=== PATIENT | female | born 1955 | race Caucasian/White ===

== ENCOUNTER 2019-07-12 16:25 | Observation (INO) | payer MEDICARE, SELFPAY ==
[2019-07-12] VITALS (13 sets, daily range): BP systolic 114–142; BP diastolic 68–98; PULSE 84–142; RESP 16–22; TEMP 36.4–37.1; O2SAT 92–96; BMI 46.1
--- NOTE | ~2019-07-12 | XR_ITS ---
EXAMINATION: XR chest 2V DATE: 07/12/2019 17:26 INDICATION: Heart palpitations. TECHNIQUE: Frontal and lateral views of the chest were obtained. COMPARISON: Chest 2 views 08/20/2018 FINDINGS: The chest demonstrates clear lungs without pneumonia, pleural effusion, or pneumothorax. Th e heart size is normal. There is a chronic compression fracture at thoracolumbar junction. There are bilateral shoulder arthroplasties. IMPRESSION: 1. No acute cardiopulmonary disease. Reviewed, dictated and finalized at location A. INE KEY CUSTOMER LEADER
--- NOTE | 2019-07-12 16:30 | ECG_ITS ---
Measurements Intervals [facility] [place] Rate: 139 P: 95 NM: 176 QRS: 73 QRSD: 80 T: 45 QT: 345 QTc: 526 Interpretive Statements ATRIAL FLUTTER/TACHYCARDIA WITH RAPID VENTRICULAR RESPONSE ST-T WAVE ABNORMALITY IN INF/LAT LEADS- CONSIDER ISCHEMIA ABNORMAL ECG Electronically Signed On 07-12-2019 17:56:23 DINKEY OPERATOR by Des Vance D.O.
[2019-07-12 16:54] LABS: Basophils Percent Auto 0.2 % (0.2-1.2); Eosinophils Absolute Auto 0.1 K/mm3 (0-0.3); Eosinophils Percent Auto 0.8 % (0-4.4); Hematocrit 49.1 % (37.0-47.0); Hemoglobin 15.6 g/dL (12.0-15.0); Immature Granulocyte Absolute 0.04 K/mm3 (0.00-0.031); Immature Granulocyte Percent A 0.4 % (0-0.5); Lymphocytes Absolute Auto 0.21 K/mm3 (0.9-3.2); Lymphocytes Percent Auto 2.2 % (18.3-44.2); Mean Corpuscular HGB Conc 31.8 g/dl (32-36); Mean Corpuscular Hemoglobin 27.7 pg (26-34); Mean Corpuscular Volume 87.2 fl (80-100); Mean Platelet Volume 9.1 fl (7.4-10.4); Monocytes Absolute Auto 0.3 K/mm3 (0.1-0.6); Monocytes Percent Auto 3.1 % (2.6-8.5); Neutrophils Percent Auto 93.3 % (45.5-73.1); Platelet Count Result 326 k/mm3 (150-375); Red Blood Count 5.63 M/mm3 (4.2-5.4); White Blood Count 9.6 K/mm3 (4.5-10.0)
--- NOTE | 2019-07-12 16:58 | PC.NURSE ---
PT TAKEN TO [facility] AND ATTATCHED TO MACHINE SAND MIXER PER BEN BOSS RN CAT INFORMED.
[2019-07-12 17:04] LABS: INR 2.2; Prothrombin Time 24.3 Seconds (11.1-14.7)
[2019-07-12 17:05] LABS: Partial Thromboplastin Time 43.3 SECONDS (22.3-36.8)
[2019-07-12 17:07] LABS: Blood Urea Nitrogen 17 mg/dL (7-17); Calcium 9.1 mg/dL (8.4-10.2); Carbon Dioxide 26 mmol/L (22-30); Chloride 99 mmol/L (98-107); Estimated CRCL calculation 99 ml/min; Estimated Glomerular Filt Rate > 60; Glucose 134 mg/dL (65-105); Potassium 3.3 mmol/L (3.4-5.0); Sodium 138 mmol/L (137-145)
--- NOTE | 2019-07-12 17:07 | ED.ARRPALP ---
HPI - Arrhythmia/Palpitations General Chief Complaint: Arrhythmia/Palpitations Stated Complaint: v/d, my afib is acting up Time Seen by Provider: 07/12/19 17:05 Source: patient and RN notes reviewed Mode of arrival: other Limitations: no limitations History of Present Illness HPI narrative: Pt is a 64 y/o female who presents to the ED with c/o constant palpitations that began after vomiting at 11:30 AM today. Pt believes she has a stomach virus. Pt has a hx of A-fib. Pt states that she has not been able to take her medications d/t emesis. She notes that she was in a hospital with her daughter who was dx with kidney stones. Pt reports nausea and diarrhea, but denies a fever. Pt is taking Coumadin. Pt's services host is Dr. Avilez. complaint: palpitations Onset (ago): hour(s) Time: 11:30 Duration: constant Context: other (occurred after emesis) Arrhythmia history: atrial fibrillation Associated symptoms: nausea, vomiting and other (diarrhea) Related Data Home Medications Medication Instructions Recorded Confirmed warfarin 4 mg tablet 8 mg PO QMWF tablet 04/22/19 07/12/19 warfarin 4 mg tablet 8 mg PO QTUTHSA 04/22/19 07/12/19 simvastatin 20 mg tablet 20 mg PO HS 05/24/19 07/12/19 triamterene 37.5 1 tablet PO QAM 05/24/19 07/12/19 mg-hydrochlorothiazide 25 mg tablet warfarin 0.5 mg PO QMWF 07/12/19 07/12/19 sotalol 160 mg PO BID 07/13/19 07/13/19 Allergies Allergy/AdvReac Type Severity Reaction Status Date / Time No Known Allergies Allergy Verified 07/12/19 17:15 Review of Systems Review of Systems: All systems reviewed & are unremarkable except as noted in HPI and below Constitutional: Constitutional: Denies fever(s) Cardiovascular: Cardiovascular: Reports other (palpitations) Gastrointestinal: Gastrointestinal: Reports diarrhea, Reports nausea and Reports vomiting PMFSH Past Medical History Medical History (Updated 07/12/19 @ 20:22 by Jose Hilliard MD) A-fib Anxiety Arthritis Cataracts, bilateral CPAP (continuous positive airway pressure) dependence Depression Essential hypertension Foot drop GI bleed History of cardioversion Hx of colonic polyps Mixed hyperlipidemia Normal colonoscopy (~2009) On warfarin therapy WILMA (obstructive sleep apnea) Rectal polyp Sleep apnea Surgical History Surgical History (Updated 07/12/19 @ 17:20 by Fernanda Lr) H/O shoulder replacement (~2011) Bilateral 2011 and 2013 History of hip replacement, total (~2013) Left 2014 Right 2017 History of hysterectomy History of knee replacement (~2015) right: 2016 Hx of cataract removal with insertion of prosthetic lens Hx of section x2 Status post JANE-BSO (~2003) Social History Social History (Updated 05/25/19 @ 12:23 by Perla Espinoza MA) Smoking status: Never smoker Second hand tobacco smoke exposure: No Alcohol intake: never Substance use: never Substance use type: does not use Gender identity (if verbalized by the patient): Female Spiritual care concerns: No Agree to blood products: Yes Exam Const: General: healthy appearing, no acute distress and alert Orientation/consciousness: patient oriented x3 HENMT: Head: normal to inspection Eyes: Conjunctivae: conjunctivae normal Pupils: Equal, round and reactive pupils present Neck: Neck: normal visual inspection and no lymphadenopathy Chest: Chest palpation & inspection: normal inspection of the chest Resp: Effort & Inspection: normal respiratory effort Auscultation: clear to auscultation bilaterally Cardio: Rate: tachycardic : General: Yes no CVA tenderness Skin: General skin exam: normal color Neuro: General: patient oriented x3, moves all extremities and no meningeal signs Extrem: General: normal to inspection Course Consultations Consultation #1: Discussed case with Dr. Hahn (Cardiology). Accepts consult. Date: 07/12/19 Time: 18:59 Consultation #2: Discussed case with Malka Marte
[2019-07-12 17:19] LABS: Troponin I < 0.012 ng/mL (0.000-0.034)
[2019-07-12] MEDS: METOPROLOL TARTRATE INJ 5 MG/5 ML VIAL IV PUSH (18:55)
[2019-07-12] MEDS: SODIUM CHLORIDE 0.9% IV 1,000 ML 999 ML IV CONT (18:55)
--- NOTE | 2019-07-12 19:30 | PC.NURSE ---
PATRICIA HANEY CANCELLED PER EDP ORDER
[2019-07-12 20:04] LABS: Troponin I 0.029 ng/mL (0.000-0.034)
[2019-07-12] MEDS: SOTALOL HCL 80 MG TABLET 160 MG PO (20:39)
[2019-07-12] MEDS: ONDANSETRON INJ 4 MG/2 ML VIAL IV PUSH (21:05)
--- NOTE | 2019-07-12 21:07 | PC.NURSE ---
called lab to add on MG
[2019-07-12 21:16] LABS: Magnesium 1.6 mg/dL (1.6-2.3)
[2019-07-12] MEDS: SODIUM CHLORIDE 0.9% IV 1,000 ML 125 ML IV CONT (21:59)
[2019-07-12 22:10] LABS: Glucose Point of Care 114 (65-105)
--- NOTE | 2019-07-12 22:26 | PC.NURSE ---
This patient, Ava Lagunas, was admitted to IMU Room 210-01. Patient/family oriented to hospital policies and general routines including ID bracelet, bed and alarms, visiting hours, pain management, procedures, bathroom and other care routines, personal items, smoking policy, room service/diet, and visiting hours. Valuables list has been completed. Information on how to activate the Rapid Response Team has been discussed. Patient/Family are encouraged to report perceived risks to care and to ask questions if they do not understand what they are told or what they should do.
[2019-07-13] VITALS (11 sets, daily range): BP systolic 135–149; BP diastolic 69–92; PULSE 67–90; RESP 16–20; TEMP 36–36.6; O2SAT 91–96
[2019-07-13 03:28] LABS: Blood Urea Nitrogen 16 mg/dL (7-17); Calcium 7.6 mg/dL (8.4-10.2); Carbon Dioxide 24 mmol/L (22-30); Chloride 105 mmol/L (98-107); Estimated CRCL calculation 112 ml/min; Estimated Glomerular Filt Rate > 60; Glucose 124 mg/dL (65-105); Potassium 3.6 mmol/L (3.4-5.0); Sodium 138 mmol/L (137-145)
[2019-07-13 03:43] LABS: Troponin I 0.159 ng/mL (0.000-0.034)
[2019-07-13 05:46] LABS: Glucose Point of Care 92 (65-105)
[2019-07-13] MEDS: SODIUM CHLORIDE 0.9% IV 1,000 ML 125 ML IV CONT (06:14)
[2019-07-13] MEDS: POTASSIUM CHLORIDE 10 MEQ TABLET.ER PO (08:26)
[2019-07-13] MEDS: lisinopriL 20 MG TABLET 40 MG PO (08:26)
[2019-07-13] MEDS: AMLODIPINE BESYLATE 5 MG TABLET PO (08:26)
[2019-07-13] MEDS: ACETAMINOPHEN 325 MG TABLET 650 MG PO (08:26)
[2019-07-13] MEDS: SOTALOL HCL 80 MG TABLET 160 MG PO (10:17)
--- NOTE | 2019-07-14 07:04 | HP_ITS ---
DATE OF SERVICE: COMBINED HISTORY AND PHYSICAL AND DISCHARGE SUMMARY CHIEF COMPLAINT: Palpitations, arrhythmia. HISTORY OF PRESENT ILLNESS: A 64-year-old female, came in because of palpitations. The patient has a known history of atrial fibrillation, has had an ablation done previously by . The patient also sees Dr. Avilez, Cardiology here in [facility]. The patient was having a stomach virus yesterday, was vomiting throughout the day and having diarrhea and thinks that set off her atrial fibrillation. The patient states she was having vomiting and diarrhea yesteday. Denies any vomiting or diarrhea. The patient is tolerating a diet. Wants to go home, Telemetry is showing sinus rythym. PAST MEDICAL HISTORY: Atrial fibrillation, anxiety, arthritis, CPAP, depression, footdrop, GI bleed, cardioversion, colonic polyps, hyperlipidemia, Coumadin therapy, obstructive sleep apnea, rectal polyp, and sleep apnea. SURGICAL HISTORY: Bilateral shoulder repair, history of hip replacements, hysterectomy, knee replacements, cataracts, section, and also bilateral salpingo-oophorectomy. SOCIAL HISTORY: Patient denies smoking. PHYSICAL EXAMINATION: VITAL SIGNS: Temperature is 36, pulse 67, respirations 16, blood pressure 147/92. GENERAL: The patient is a pleasant lady, appears to be in no acute distress. HEENT: Head, normal. Conjunctivae, normal. NECK: No lymphadenopathy. CHEST: Clear to auscultation. HEART: Sounds are normal. Pt is in sinus. ABDOMEN: Soft, nontender. BS present MUSCULOSKELETAL: She is able to move all 4 limbs. NEURO: No focal deficits PSYCH: Good mood and effect EXT: No edema SKIN; Warm and dry LABORATORY DATA: Hemoglobin and hematocrit 15.6 and 49.1, white cell 9.6, platelets 326. Sodium 138, potassium 3.3, creatinine 0.7, glucose 134. The patient had a chest x-ray was normal. EKG showed tachycardia on admission. ASSESSMENT AND PLAN: The patient admitted for gastroenteritis and atrial fibrillation, uncontrolled. HOSPITAL COURSE: Patient was admitted to the hospital in IMU. Patient was started on IV fluids, continued on her home medication. The patient changed back to sinus rhythm of 72. Patient states she feels better. Denies any nausea or diarrhea presently. The patient also had IV Zofran in the emergency room and had some potassium rider. The patient feels well. DISCHARGE DIAGNOSES: 1. Gastroenteritis. 2. Atrial fibrillation, uncontrolled, possibly triggered by stomach virus. CONDITION ON DISCHARGE: Stable FOLLOWUP: Dr. Avilez and for her 2nd ablation. MEDICATIONS ON DISCHARGE: Imodium 2 mg p.o. q.4 p.r.n., Zofran 4 mg p.o. q.12 p.r.n., Norvasc 5 mg p.o. daily, lisinopril 40 p.o. b.i.d., potassium chloride 10 mEq p.o. daily, simvastatin 20 p.o. q.h.s., sotalol 160 p.o. b.i.d., terazosin 1 mg p.o. q.h.s., HCTZ/triamterene 1 tablet p.o. q.a.m., Coumadin 8 mg on Friday, Friday, and Friday, 8 mg and Friday. Coumadin 0.5 p.o. Friday, Friday, and Friday. FOLLOW UP:The patient also to have follow up with her primary care. DIET: The patient to have a heart healthy diet. ACTIVITY: As tolerated. DISPOSITION: Home. Total time taken for combined history, physical, and discharge summary is 38 minutes. D I MT: Piero MCCRACKEN
[2019-07-14 14:12] LABS: Glucose Point of Care 90 (65-105)
== END 2019-07-13 17:30 | disposition home or self-care (01) ==
LOC: ANHED 07-13 11:59 → ANHIMU 07-13 12:00 → ANH3MEDSUR 07-15 09:24 → ANHIMU 07-15 09:24
PROVIDERS: Internal Medicine; Admitting Provider Internal Medicine; Emergency Provider Family Medicine; PCP Family Medicine; Visit Provider Family Medicine
DX: I48.91 Unspecified atrial fibrillation (principal); K52.9 Noninfective gastroenteritis and colitis, unspecified; I10 Essential (primary) hypertension; E78.2 Mixed hyperlipidemia; Z79.01 Long term (current) use of anticoagulants; Z79.899 Other long term (current) drug therapy; Z96.611 Presence of right artificial shoulder joint; Z96.612 Presence of left artificial shoulder joint; Z96.642 Presence of left artificial hip joint; Z96.651 Presence of right artificial knee joint; Z98.890 Other specified postprocedural states; Z99.89 Dependence on other enabling machines and devices
CPT/HCPCS: 36415; 71046; 80048; 83735; 84484; 85025; 85610; 85730; 93005; 96361; 96374; 96375; 99285; A9270; G0378; J2405; J3480; J7030

== ENCOUNTER 2019-12-29 13:52 | Outpatient (CLI) | payer MEDICARE, SELFPAY ==
--- NOTE | ~2019-12-29 | MM_ITS ---
EXAMINATION: MM screening [place] [place] HISTORY: Screening mammogram, family history of breast cancer in her mother and sister. TECHNIQUE: Craniocaudal and mediolateral oblique 3-D tomosynthesis images were obtained and synthetic 2-D images were generated. CAD analysis was submitted and interpreted. COMPARISON: 08/27/2018, 08/05/2017, 07/26/2016 BREAST PARENCHYMAL COMPOSITION: There are scattered areas of fibroglandular density. FINDINGS: There is no evidence of suspicious mass, calcification, or architectural distortion to sugg est malignancy in either breast. There has been no suspicious interval change. IMPRESSION: 1. No mammographic evidence of malignancy. 2. Recommend routine screening mammography in one year. BI-RADS Category 1: Negative Reviewed, dictated and finalized at location A.
== END 2019-12-29 13:53 | disposition home or self-care (01) ==
LOC: ANHIMG 13:54
PROVIDERS: PCP Family Medicine; Visit Provider Family Medicine
DX: Z12.31 Encounter for screening mammogram for malignant neoplasm of breast (principal)
CPT/HCPCS: 77063; 77067

== ENCOUNTER → 2020-12-02 00:12 | Outpatient (CLI) | payer MEDICARE, SELFPAY ==
[2020-12-02 19:26] LABS: SARS-CoV-2 RNA PCR Negative
== END ==
PROVIDERS: PCP Family Medicine; Visit Provider Internal Medicine Gastroenterology
DX: Z01.812 Encounter for preprocedural laboratory examination (principal); Z20.822 Contact with and (suspected) exposure to COVID-19
CPT/HCPCS: C9803; U0003; U0005

== ENCOUNTER 2020-12-05 00:43 | Day surgery (SDC) | payer MEDICARE, SELFPAY ==
[2020-11-21 11:56] VITALS: BMI 46.3
[2020-12-05] MEDS: LACTATED RINGERS 1,000 ML 150 ML IV CONT (06:32)
[2020-12-05 06:39] VITALS: BP 146/86; PULSE 68; RESP 18; TEMP 35.7; O2SAT 98; BMI 47.1
[2020-12-05 06:44] LABS: INR 1.2; Prothrombin Time 15.8 Seconds (11.1-14.7)
--- NOTE | 2020-12-05 07:16 | WPDANESEPPF ---
Anes - Initial Pre Proc Eval Procedure: Operation Date: 12/05/20 07:30 Proposed Procedures p Screening Colonoscopy - Booker Figueroa MD Date/Time: 12/05/20 07:16 Surgeon: Booker Figueroa MD Pre Op Diagnosis: hx of colon polyps Patient Data Age: 65 Gender: F Height: 1.7 m Weight: 136.5 kg Last Vital Signs Temp 96.3 F L 12/05/20 06:39 Pulse 68 12/05/20 06:39 Resp 18 12/05/20 06:39 BP 146/86 H 12/05/20 06:39 Pulse Ox 98 12/05/20 06:39 Allergies Allergy/AdvReac Type Severity Reaction Status Date / Time No Known Allergies Allergy Verified 12/05/20 06:43 Home Medications Medication Instructions Recorded Confirmed Type sotalol 160 mg PO BID 07/13/19 12/05/20 History simvastatin 20 mg tablet 20 mg PO HS #90 tablet 01/09/20 11/21/20 Rx potassium chloride 10 mEq 10 meq PO DAILY #90 tablet 10/20/20 12/05/20 Rx tablet,extended release(part/cryst) lisinopril 40 mg PO BID 11/21/20 12/05/20 History metoprolol tartrate 50 mg PO BID 11/21/20 12/05/20 History terazosin 2 mg PO HS 11/21/20 11/21/20 History triamterene 37.5 1 tablet PO QAM #90 tablet 11/21/20 11/21/20 Rx mg-hydrochlorothiazide 25 mg tablet warfarin 8.5 mg PO QMWF 11/21/20 11/21/20 History warfarin See Rx Instructions .ROUTE .COMPLEX 11/21/20 11/21/20 History amlodipine 5 mg tablet 5 mg PO HS #90 tablet 12/01/20 12/05/20 Rx Laboratory Tests 12/05/20 06:31 PT 15.8 Seconds H Seconds (11.1-14.7) INR 1.2 Patient hx anesthesia problems: none Family hx anesthesia problems: none PMFSH Past Medical History Medical History A-fib Anxiety Arthritis Cataracts, bilateral CPAP (continuous positive airway pressure) dependence Depression Essential hypertension Foot drop GI bleed History of cardioversion Hx of colonic polyps Mixed hyperlipidemia Normal colonoscopy (~2009) On warfarin therapy WILMA (obstructive sleep apnea) Rectal polyp Sleep apnea Surgical History Surgical History H/O shoulder replacement (~2011) Bilateral 2012 and 2013 History of hip replacement, total (~2013) Left 2014 Right 2017 History of hysterectomy History of knee replacement (~2015) right: 2016 Hx of cataract removal with insertion of prosthetic lens Hx of section x2 Status post JANE-BSO (~2003) Family History Family History Other Acute myocardial infarction Diabetes mellitus Family history of arthritis Family history of coronary artery disease Family history of malignant neoplasm of breast in first degree relative Hypertension Social History Social History Smoking status: Never smoker Second hand tobacco smoke exposure: No Alcohol intake: former Substance use: never Substance use type: does not use Living arrangements: with family Gender identity (if verbalized by the patient): Female Spiritual care concerns: No Agree to blood products: Yes Anes - Eval Final PreProcedure Day of Procedure 12/05/20 07:16 Patient weight: morbidly obese Heart: regular rate and rhythm Lungs: clear to auscultation Airway: Mallampati scale class III Neurological: alert and oriented Last oral intake: >/= 8 hours ASA classification: IV Emergent: no Anesthetic plan: proceed Anesthesia type and monitoring: general GIVS and standard monitoring Informed Consent: The patient's anesthetic plan and its attendant risks and benefits were discussed with the patient/family/POA. Questions were solicited and answers provided to the satisfaction of the patient/family/POA.
--- NOTE | 2020-12-05 07:27 | WPDGICN ---
Assessment and Plan Assessment and plan (1) History of colon polyps: Code(s): Z86.010 - Personal history of colonic polyps Status: Acute Assessment and Plan: Patient has a distant history of colon polyps. For this reason surveillance colonoscopy in in been advised. Anticoagulation will be held briefly for procedure. Follow-up will be determined by findings of colonoscopy. GI Consult Note Consult date/time: 12/05/20 07:27 HPI: Ava Lagunas is a 65 year old femalePresents for screening colonoscopy. Patient has a history of colon polyps. Initially found in 2008. Most recent colonoscopy 2015. Patient states that her current weight appetite bowel movements are normal. Patient denies any blood in her stools. Her family history history is significant for a cousin with colon cancer. Sister may have had colon polyps. Patient presents today for screening colonoscopy. Review of Systems Review of Systems: All systems reviewed & are unremarkable except as noted in HPI and below PMFSH Past Medical History Medical History A-fib Anxiety Arthritis Cataracts, bilateral CPAP (continuous positive airway pressure) dependence Depression Essential hypertension Foot drop GI bleed History of cardioversion Hx of colonic polyps Mixed hyperlipidemia Normal colonoscopy (~2009) On warfarin therapy WILMA (obstructive sleep apnea) Rectal polyp Sleep apnea Surgical History Surgical History H/O shoulder replacement (~2011) Bilateral 2011 and 2013 History of hip replacement, total (~2013) Left 2014 Right 2017 History of hysterectomy History of knee replacement (~2015) right: 2016 Hx of cataract removal with insertion of prosthetic lens Hx of section x2 Status post JANE-BSO (~2003) Family History Family History Other Acute myocardial infarction Diabetes mellitus Family history of arthritis Family history of coronary artery disease Family history of malignant neoplasm of breast in first degree relative Hypertension Social History Social History Smoking status: Never smoker Second hand tobacco smoke exposure: No Alcohol intake: former Substance use: never Substance use type: does not use Living arrangements: with family Gender identity (if verbalized by the patient): Female Spiritual care concerns: No Agree to blood products: Yes Meds Home Medications and Allergies Home Medications Medication Instructions Recorded Confirmed Type sotalol 160 mg PO BID 07/13/19 12/05/20 History simvastatin 20 mg tablet 20 mg PO HS #90 tablet 01/09/20 11/21/20 Rx potassium chloride 10 mEq 10 meq PO DAILY #90 tablet 10/20/20 12/05/20 Rx tablet,extended release(part/cryst) lisinopril 40 mg PO BID 11/21/20 12/05/20 History metoprolol tartrate 50 mg PO BID 11/21/20 12/05/20 History terazosin 2 mg PO HS 11/21/20 11/21/20 History triamterene 37.5 1 tablet PO QAM #90 tablet 11/21/20 11/21/20 Rx mg-hydrochlorothiazide 25 mg tablet warfarin 8.5 mg PO QMWF 11/21/20 11/21/20 History warfarin See Rx Instructions .ROUTE .COMPLEX 11/21/20 11/21/20 History amlodipine 5 mg tablet 5 mg PO HS #90 tablet 12/01/20 12/05/20 Rx Allergies Allergy/AdvReac Type Severity Reaction Status Date / Time No Known Allergies Allergy Verified 12/05/20 06:43 Vital Signs Vital Signs - 24 hr 12/05/20 06:39 Temperature 96.3 F L Pulse Rate 68 Respiratory Rate 18 Blood Pressure 146/86 H Pulse Oximetry 98 Exam Narrative: Exam Narrative: Physical exam reveals patient to be alert. Vital signs stable. HEENT exam is unremarkable. Patient is anicteric. Lungs are clear to auscultation and percussion. Heart is without murmur or extra sounds. Abdominal exam bowel sound
[2020-12-05 07:46] VITALS: BP 146/86; PULSE 67; RESP 18; O2SAT 98
[2020-12-05 07:56] VITALS: BP 127/78; PULSE 68; RESP 20; O2SAT 98
[2020-12-05 08:06] VITALS: BP 118/68; PULSE 64; RESP 16; O2SAT 98
== END 2020-12-05 08:28 | disposition home or self-care (01) ==
PROVIDERS: PCP Family Medicine; Visit Provider Internal Medicine Gastroenterology
PROC: 0DJD8ZZ Inspection of Lower Intestinal Tract, Via Natural or Artificial Opening Endoscopic (ICD-10-PCS; CPT 45378; principal; 2020-12-05 07:30)
DX: Z12.11 Encounter for screening for malignant neoplasm of colon (principal); K64.8 Other hemorrhoids; K57.30 Diverticulosis of large intestine without perforation or abscess without bleeding; Z86.010 Personal history of colon polyps; I48.91 Unspecified atrial fibrillation; I10 Essential (primary) hypertension; E78.2 Mixed hyperlipidemia; G47.33 Obstructive sleep apnea (adult) (pediatric); F41.8 Other specified anxiety disorders; Z79.01 Long term (current) use of anticoagulants; E66.01 Morbid (severe) obesity due to excess calories; Z68.42 Body mass index [BMI] 45.0-49.9, adult
CPT/HCPCS: G0105; 36415; 85610; C9803; J2704; J7120; U0003; U0005

== ENCOUNTER 2021-01-03 12:59 | Outpatient (CLI) | payer MEDICARE, SELFPAY ==
--- NOTE | ~2021-01-03 | MM_ITS ---
EXAMINATION: MM screening [facility] [place] HISTORY: Screening TECHNIQUE: Craniocaudal and mediolateral oblique 3-D tomosynthesis images were obtained and synthetic 2-D images were generated. CAD analysis was submitted and interpreted. COMPARISON: Comparison to multiple prior studies sequentially, with oldest reviewed study dated 03/16. BREAST PARENCHYMAL COMPOSITION: There are scattered areas of fibroglandular density. FINDINGS: There is no evidence of suspicious mass, calcification, or architectural distortion to sugg est malignancy in either breast. There has been no suspicious interval change. IMPRESSION: 1. No mammographic evidence of malignancy. 2. Recommend routine screening mammography in one year. BI-RADS Category 1: Negative Reviewed, dictated and finalized at location A.
== END 2021-01-03 13:00 | disposition home or self-care (01) ==
LOC: ANHIMG 13:01
PROVIDERS: PCP Family Medicine; Visit Provider Family Medicine
DX: Z12.31 Encounter for screening mammogram for malignant neoplasm of breast (principal)
CPT/HCPCS: 77063; 77067

== ENCOUNTER → 2021-01-15 00:43 | Outpatient (CLI) | payer MEDICARE, SELFPAY ==
[2021-01-15 17:06] LABS: SARS-CoV-2 RNA PCR Negative
== END ==
PROVIDERS: PCP Family Medicine; Visit Provider Internal Medicine Critical Care Medicine
DX: R68.89 Other general symptoms and signs (principal); Z20.822 Contact with and (suspected) exposure to COVID-19
CPT/HCPCS: C9803; U0003; U0005

== ENCOUNTER 2021-01-17 08:39 | Outpatient (CLI) | payer MEDICARE, SELFPAY ==
--- NOTE | 2021-02-12 15:08 | WPDSLEEPSTUD ---
Sleep Study Date of Study: 01/17/21 Ordering Provider: Cindi Soriano MD Interpreting Physician: Aneta Sanders MD Sleep Study Type: CPAP Titration Height: 1.7 m Weight: 133.81 kg Body Mass Index: 46.2 Neck Circumference (inches): 17.5 [place]: 5 Reason for Sleep Study Obstructive sleep apnea, currently uses CPAP, last sleep study October 2009, now with increased symptoms * Split night 10/18/2009 - AHI 40.6, 8 cm optimal pressure Sleep History Ava Lagunas is a 65 year old female with obstructive sleep apnea syndrome diagnosed October 18, 2009 on a split night polysomnogram, severe with an AHI of 40.6 and an optimal pressure of 8 cm of water pressure. She has a history Of atrial fibrillation with an ablation, hypertension hyperlipidemia. She often notices fast heart rate at night and vivid for frightening dreams. She is not certain that her CPAP is delivering appropriate pressure. There is a strong family history with her mother and 3 brothers having sleep apnea, using a device. She snores loudly and has nasal congestion. she frequently awakens feeling refreshed. She occasionally has daytime hypersomnolence. She occasionally awakens from sleep feeling short of breath. She rarely has heartburn, belching or coughing at night. She occasionally snores but when she does it is loud. She constantly has trouble sleeping with a cold. She occasionally gasp for breath at night. She occasionally has breathing problems observed by others. She rarely sweats excessively night. She occasionally notices her heart pounding or beating irregularly at night and occasionally falls asleep during the day. She does not fall asleep involuntarily or while driving. She does not have loss of muscle tone with strong emotion, daytime difficulties due to excessive sleepiness, the feeling of paralysis on waking or falling asleep or vivid dreamlike scenes upon awakening or falling asleep. She does not feel afraid to go to sleep. She occasionally has nightmares, occasionally remembers her dreams and occasionally has racing thoughts. She does not feel sad or depressed. She rarely has anxiety. She occasionally has muscular tension and notices parts of her body jerking. She does not kick at night or of crawling and aching feelings in her legs. She rarely has leg pain at night. She does not have morning jaw pain or grind her teeth during sleep. She frequently is bothered by pain during the day, rarely awakened by pain at night. She frequently wakes up feeling stiff in the morning rarely with sore or achy muscles. She occasionally wakes up with pain in the neck and spine. She takes sedatives at night time only. She has nightmares. She has age-related memory problems. Normal bedtime is 9:00 p.m. falling asleep in 1 minute typically waking 3 times at night to urinate. She is able to return to sleep within 5 minutes or less. She wakes the morning at 6:00 a.m.. Her weekend schedule is the same. She sometimes takes naps during the day. A short nap is not refreshing. She feels better in the morning compared to other times of day. Habits: No tobacco, caffeine, alcohol or recreational drugs. [facility] Past Medical History Medical History A-fib Anxiety Arthritis Cataracts, bilateral CPAP (continuous positive airway pressure) dependence Depression Essential hypertension Foot drop GI bleed History of cardioversion Hx of colonic polyps Mixed hyperlipidemia Normal colonoscopy (~2020) On warfarin therapy WILMA (obstructive sleep apnea) Rectal polyp Sleep apnea Surgical History Surgical History H/O shoulder replacement (~2011) Bilateral 2011 and 2012 History of hip replacement, total (~2013) Left 2014 Right 2017 History of hysterectomy History of knee replacement (~2015) right: 2016 Hx of cataract removal with insertion of prosthetic lens Hx of
[2021-02-12 15:10] VITALS: BMI 46.2
== END 2021-01-18 06:33 | disposition home or self-care (01) ==
LOC: ANHCSM 08:40
PROVIDERS: PCP Family Medicine; Visit Provider Family Medicine
DX: G47.33 Obstructive sleep apnea (adult) (pediatric) (principal)
CPT/HCPCS: 95811

== ENCOUNTER 2021-09-22 16:12 | Emergency (ER) | payer MEDICARE, SELFPAY ==
[2021-09-22 16:18] VITALS: BP 173/78; PULSE 80; RESP 16; TEMP 37.4; O2SAT 96
--- NOTE | 2021-09-22 16:29 | ED.URI ---
HPI - URI/Sore Throat General Chief Complaint: Upper Respiratory Infection Stated Complaint: Chest Congestion/Cough Time Seen by Provider: 09/22/21 16:31 Source: patient, RN notes reviewed and old records reviewed Mode of arrival: ambulatory Limitations: no limitations History of Present Illness HPI Narrative: 66 year old female who presents to [facility] care with complaints of cough with some nasal congestion since Friday or Friday. Patient reports she had been taking care of her grandson this last week who had been sick with an upper respiratory infection. Patient reports that she has noted respiratory congestion with cough with yellow colored phlegm and also some blood streaks in sputum noted today. Patient states that she has noted some wheezing especially when she lays down at night. Patient denies any acute shortness of breath. Patient does have history of atrial fib/flutter and is on daily Coumadin therapy with home monitoring of PT usually every 2 weeks. MD elicited complaint: cough, nasal congestion and other (wheezing) Onset (ago): day(s) (5) Consistency: progressively worsening Description of mucous: yellow Able to tolerate fluids by mouth: Yes Treatments prior to arrival: acetaminophen and cold medicine (cold and flu medication OTC) Related Data Home Medications Medication Instructions Recorded Confirmed sotalol 160 mg PO BID 07/13/19 09/22/21 metoprolol tartrate 50 mg PO BID 11/21/20 09/22/21 terazosin 2 mg PO HS 11/21/20 09/22/21 warfarin 8 mg PO DAILY 11/21/20 09/22/21 Allergies Allergy/AdvReac Type Severity Reaction Status Date / Time No Known Allergies Allergy Verified 09/22/21 16:29 Review of Systems Review of Systems: CONSTITUTIONAL: Denies any known fever, chills, or sweats. EYES: Denies visual changes, redness, or discharge. ENT:Positive for rhinorrhea, congestion,no sore throat, or otalgia. CARDIOVASCULAR: Denies chest pain, palpitations, or edema. RESPIRATORY:Positive for cough and some wheezing denies dyspnea. GASTROINTESTINAL: Denies abdominal pain, nausea, vomiting, or diarrhea. GENITOURINARY: Denies dysuria or hematuria. SKIN: Denies rash or itching. MUSCULOSKELETAL: Denies back pain, joint pain, or myalgia. NEUROLOGIC: Denies headache, numbness, or weakness. PSYCHIATRIC: Positive for past history of anxiety or depression. All systems reviewed & are unremarkable except as noted in HPI and below PMFSH Past Medical History Medical History A-fib Anxiety Arthritis Cataracts, bilateral CPAP (continuous positive airway pressure) dependence Depression Essential hypertension Foot drop GI bleed History of cardioversion Hx of colonic polyps Mixed hyperlipidemia Normal colonoscopy (~2020) On warfarin therapy WILMA (obstructive sleep apnea) Rectal polyp Sleep apnea Surgical History Surgical History H/O shoulder replacement (~2011) Bilateral 2011 and 2013 History of hip replacement, total (~2013) Left 2014 Right 2017 History of hysterectomy History of knee replacement (~2015) right: 2016 Hx of cataract removal with insertion of prosthetic lens Hx of section x2 Status post JANE-BSO (~2003) Family History Family History Other Acute myocardial infarction Diabetes mellitus Family history of arthritis Family history of coronary artery disease Family history of malignant neoplasm of breast in first degree relative Hypertension Social History Social History Second hand tobacco smoke exposure: No Alcohol intake: former Substance use: never Substance use type: does not use Gender identity (if verbalized by the patient): Female Spiritual care concerns: No Agree to blood products: Yes Comments At time of signature, agree with nursing
[2021-09-22 16:32] VITALS: BP 173/78; PULSE 80; RESP 16; TEMP 37.4; O2SAT 96
== END 2021-09-22 16:55 | disposition home or self-care (01) ==
PROVIDERS: Emergency Provider Registered Nurse; PCP Family Medicine
DX: J40 Bronchitis, not specified as acute or chronic (principal); I48.91 Unspecified atrial fibrillation; M19.90 Unspecified osteoarthritis, unspecified site; I10 Essential (primary) hypertension; E78.2 Mixed hyperlipidemia; G47.33 Obstructive sleep apnea (adult) (pediatric); Z96.612 Presence of left artificial shoulder joint; Z96.611 Presence of right artificial shoulder joint; Z96.643 Presence of artificial hip joint, bilateral; Z96.651 Presence of right artificial knee joint; Z98.49 Cataract extraction status, unspecified eye; Z96.1 Presence of intraocular lens; Z79.01 Long term (current) use of anticoagulants
CPT/HCPCS: 99213; G0463

== ENCOUNTER 2021-09-26 14:15 | Outpatient (CLI) | payer MEDICARE, SELFPAY ==
--- NOTE | ~2021-09-26 | XR_ITS ---
EXAMINATION: XR chest 2V Exam Date/Time: 09/26/2021 14:23 CDT CLINICAL HISTORY: J22 - Unspecified acute lower respiratory infection Comparison: 07/12/2019, 08/20/2018, 08/02/2018. RESULT: Lines, tubes, and devices: Bilateral shoulder arthroplasties.. Lungs and pleura: Right middle lobe airspace disease. Cardiomediastinal silhouette: Stable cardiomediastinal silhouette. Other: Perihardware lucency along the medial right humeral cortex adjacent to the humeral stem. No a cute upper abdominal finding. IMPRESSION: Pulmonary findings may reflect right middle lobe pneumonia in the appropriate clinical context. Right shoulder arthroplasty perihardware lucency, as can be seen with loosening or infection. Recommend de dicated right shoulder radiographs for further evaluation. Reviewed, dictated and finalized at location K. IMPRESSION: Pulmonary findings may reflect right middle lobe pneumonia in the appropriate c linical context. Right shoulder arthroplasty perihardware lucency, as can be se en with loosening or infection. Recommend dedicated right shoulder radiographs for further evaluation.
== END 2021-09-26 14:16 | disposition home or self-care (01) ==
PROVIDERS: PCP Family Medicine; Visit Provider Physician Assistant
DX: J22 Unspecified acute lower respiratory infection (principal)
CPT/HCPCS: 71046

== ENCOUNTER 2021-10-05 09:31 | Outpatient (CLI) | payer MEDICARE, SELFPAY ==
--- NOTE | ~2021-10-05 | DEXA_ITS ---
Bone Density Report Name: AMADOU HANSEN Age: 66 Sex: Female Ethnicity: White Date of : 1955 Indication: postmenopausal; screening for osteoporosis; height loss; hysterectomy; Referring Provider: LES WHEAT Study: Bone densitometry was performed. Exam Date: October 05, 2021 Accession number: [id number] Bone Density: Region BMD T-score Z-score Classification AP Spine(L1, L4) 1.303 2.4 4.4 Normal World Health Organization criteria for BMD impression classify patients as: Normal (T-score at or above -1.0), Osteopenia (T-score between -1.0 and -2.5), or Osteoporosis (T-score at or below -2.5). Clinical Information Provided by Patient: Has the following medical conditions: Hysterectomy Patient maximum height was 67 Menopause Age: 43 No regular weight bearing exercise Does not regularly consume dairy products Onset of menses at age 11 Impression: The patient has normal bone mass. Discussion: LOW RISK OF FRACTURE; BONE DENSITY IS WELL ABOVE THE MINIMUM DESIRABLE LEVEL AND ABOVE AVERAGE FOR AGE AND SEX AT ALL SKELETAL SITES TESTED. This person's bone density is above expected limits for age and sex. This is rarely clinically significant, but should be pursued if there are significant musculoskeletal complaints. The patient should follow a healthful lifestyle (good nutrition with adequate calcium and vitamin D, and appropriate weight-bearing exercise). Follow-Up: Consider repeating this study in 5 years or sooner if there is some new clinical indication. Reported by: SYED on 10/05/2021 9:47:00 AM. Reviewed, dictated and finalized at location AAlbina MCCRACKEN
== END 2021-10-05 09:32 | disposition home or self-care (01) ==
PROVIDERS: PCP Family Medicine; Visit Provider Physician Assistant
DX: Z78.0 Asymptomatic menopausal state (principal)
CPT/HCPCS: 77080

== ENCOUNTER → 2021-10-11 14:28 | Outpatient (CLI) | payer MEDICARE, SELFPAY ==
--- NOTE | ~2021-10-11 | XR_ITS ---
XR chest 2V DATE: 10/11/2021 14:50 INDICATION: Pneumonia TECHNIQUE: 2 views COMPARISON: 09/26/2021 PA and lateral chest FINDINGS: Cardiomegaly. Aortic calcification and mild tortuosity. Moderate bilateral hyperinflation. No pulmonary infiltrate or consolidation, pleural effusion or pulm onary vascular congestion or pneumothorax is detected. Degenerative spurring and dextroscoliosis of the thoracic spine. Bilateral glenohumeral joint replacement. Osteopenia. IMPRESSION: Cardiomegaly Aortic atherosclerosis Bilateral hyperinflation; no active pulmonary disease Reviewed, dictated and finalized at location A.
== END ==
PROVIDERS: PCP Family Medicine; Visit Provider Family Medicine
DX: J18.9 Pneumonia, unspecified organism (principal); M41.9 Scoliosis, unspecified; I70.0 Atherosclerosis of aorta; I51.7 Cardiomegaly; M85.88 Other specified disorders of bone density and structure, other site
CPT/HCPCS: 71046

== ENCOUNTER 2022-03-14 08:22 | Outpatient (CLI) | payer MEDICARE, SELFPAY ==
--- NOTE | ~2022-03-14 | MM_ITS ---
EXAMINATION: MM screening [place] BI w [place] HISTORY: Screening mammogram TECHNIQUE: Craniocaudal and mediolateral oblique 3-D tomosynthesis images were obtained and synthetic 2-D images were generated. CAD analysis was submitted and interpreted. COMPARISON: 01/03/2021, 12/29/2019, 08/27/2018 bilateral screening mammogram examinations BREAST PARENCHYMAL COMPOSITION: There are scattered areas of fibroglandular density. FINDINGS: There is no evidence of suspicious mass, calcification, or architectural distortion to sugg est malignancy in either breast. There has been no suspicious interval change. IMPRESSION: 1. No mammographic evidence of malignancy. 2. Recommend routine screening mammography in one year. BI-RADS Category 1: Negative Reviewed, dictated and finalized at location A.
== END 2022-03-14 08:23 | disposition home or self-care (01) ==
PROVIDERS: PCP Family Medicine; Visit Provider Family Medicine
DX: Z12.31 Encounter for screening mammogram for malignant neoplasm of breast (principal)
CPT/HCPCS: 77063; 77067

== ENCOUNTER 2023-07-14 14:28 | Outpatient (CLI) | payer MEDICARE, SELFPAY ==
--- NOTE | ~2023-07-14 | MM_ITS ---
EXAMINATION: MM screening dalia BI w [place] HISTORY: Screening TECHNIQUE: Craniocaudal and mediolateral oblique 3-D tomosynthesis images were obtained and synthetic 2-D images were generated. CAD analysis was submitted and interpreted. COMPARISON: Comparison to multiple prior studies sequentially, with oldest reviewed study dated 07/26. BREAST PARENCHYMAL COMPOSITION: Breast composed of scattered areas of fibroglandular density FINDINGS: There is no evidence of suspicious mass, calcification, or architectural distortion to sugg est malignancy in either breast. There has been no suspicious interval change. IMPRESSION: 1. No mammographic evidence of malignancy. 2. Recommend routine screening mammography in one year. BI-RADS Category 1: Negative Reviewed, dictated and finalized at location A. RMATION ASSURANCE OFFICER
== END 2023-07-14 14:29 | disposition home or self-care (01) ==
LOC: ANHIMG 14:32
PROVIDERS: PCP Family Medicine; Visit Provider Family Medicine
DX: Z12.31 Encounter for screening mammogram for malignant neoplasm of breast (principal)
CPT/HCPCS: 77063; 77067

== ENCOUNTER 2023-12-12 10:29 | Outpatient (CLI) | payer MEDICARE, SELFPAY ==
--- NOTE | ~2023-12-12 | US_ITS ---
EXAMINATION: US carotid duplex BI DATE: 12/12/2023 12:14 INDICATION: Left carotid bruit TECHNIQUE: Grayscale, color Doppler, and pulsed Doppler images of the cervical carotid arteries were obtained. The degree of vessel stenosis is placed in one of the following categories: normal, <50%, 5 0-69%, >=70% but less than near-occlusion, near-occlusion, or total occlusion. Note that percent sten osis relative to normal distal artery lumen diameter is indirectly measured from velocity measurement s as described by Nas, et al. Radiology 2003; 229:340-346. COMPARISON: None. FINDINGS: RIGHT: The right common carotid artery (CCA) peak systolic velocity (PSV) is 66 cm/s. The right internal car otid artery (ICA) PSV is 87 cm/s. The right ICA end-diastolic velocity (EDV) is 31 cm/s. The right IC A/CCA PSV ratio is 1.3. Grayscale and color Doppler images yield an estimate of <50% diameter reducti on from plaque in the ICA. The external carotid artery (ECA) PSV is 93 cm/s. There is antegrade flow in the right vertebral artery. LEFT: The left CCA PSV is 63 cm/s. The left ICA PSV is 75 cm/s. The left ICA EDV is 15 cm/s. The left ICA/C CA PSV ratio is 1.4. Grayscale and color Doppler images yield an estimate of <50% diameter reduction from plaque in the ICA. The ECA PSV is 77 cm/s. There is antegrade flow in the left vertebral artery. IMPRESSION: 1. <50% stenosis in the right internal carotid artery. 2. <50% stenosis in the left internal carotid artery. Reviewed, dictated and finalized at location B.
== END 2023-12-12 10:30 | disposition home or self-care (01) ==
LOC: ANHIMG 10:33
PROVIDERS: PCP Family Medicine; Visit Provider Internal Medicine Cardiovascular Disease
DX: I65.23 Occlusion and stenosis of bilateral carotid arteries (principal); R09.89 Other specified symptoms and signs involving the circulatory and respiratory systems
CPT/HCPCS: 93880

== ENCOUNTER 2024-03-23 09:02 | Outpatient (CLI) | payer MEDICARE, SELFPAY ==
--- NOTE | ~2024-03-23 | US_ITS ---
US arterial ankle brachial ind INDICATION: Peripheral vascular disease TECHNIQUE: Segmental pressures and plethysmographic and Doppler waveforms of the brachial and lower e xtremity arteries were obtained. COMPARISON: None. FINDINGS: Right and left brachial artery pressures of 179 mm Hg and 165 mm Hg, respectively, are concordant (no rmal difference <= 30 mmHg). The right ankle-brachial index (BRO) is 1.2 (normal >= 0.9-1.0). The right great toe-brachial index ( TBI) is 0.79 (normal >= 0.60). The left BRO is 1.1. The left TBI is 0.66. IMPRESSION: 1. Normal bilateral ankle-brachial indices. Reviewed, dictated and finalized at location B.
== END 2024-03-23 09:03 | disposition home or self-care (01) ==
PROVIDERS: PCP Family Medicine; Visit Provider Physician Assistant Medical
DX: I73.9 Peripheral vascular disease, unspecified (principal)
CPT/HCPCS: 93922

== ENCOUNTER 2024-08-05 14:48 | Outpatient (CLI) | payer MEDICARE, SELFPAY ==
--- NOTE | ~2024-08-05 | MM_ITS ---
EXAMINATION: MM screening [place] BI w [place] HISTORY: Screening TECHNIQUE: Craniocaudal and mediolateral oblique 3-D tomosynthesis images were obtained and synthetic 2-D images were generated. CAD analysis was submitted and interpreted. COMPARISON: Comparison to multiple prior studies sequentially, with oldest reviewed study dated 08/05. BREAST PARENCHYMAL COMPOSITION: Not dense: There are scattered areas of fibroglandular density. FINDINGS: There is no evidence of suspicious mass, calcification, or architectural distortion to sugg est malignancy in either breast. There has been no suspicious interval change. IMPRESSION: 1. No mammographic evidence of malignancy. 2. Recommend routine screening mammography in one year. BI-RADS Category 1: Negative Reviewed, dictated and finalized at location B. EED MEAT PRESSER
--- OUTSIDE RECORDS SUMMARY | 2024-08-05 14:50 | XMS_ITS | Referral Summary ---
Author Organization [facility] Address [address] [place] [address] Care Team Providers Care Deicer Repairer Name Role Phone Alfonso GILMORE MD, Musa Unavailable [phone] Cindi Soriano MD Primary Care Provider [phone] Varun Hahn MD Unavailable [phone] Varun Hahn MD Unavailable [phone] Source Comments [facility],non-owned Affiliates and Associated Physician Practices is amultiple site organization consisting of ambulatory clinics and hospital sitesin [place], [place], [place] and [place]. This disclosure is being madepursuant to the Care Everywhere program and may not contain all information available regarding this patient. Last updated 18.[facility] Allergies No known active allergies Medications * Be aware that medications may not be up to date on this document. Alwaysverify current medications with the patient. Medication Sig Dispensed Refills Start Date End Date Status Sotalol HCl, AF, 160 MG TABS Take by mouth 2 times daily. Active Warfarin Sodium (COUMADIN PO) Take 6 mg by mouth once daily Active triamterene-hydrochlor othiazide (DYAZIDE) 37.5-25 MG capsule Take 1 Cap by mouth once daily. Active terazosin (HYTRIN) 1 MG capsule Take 1 mg by mouth once daily. Active lisinopril (PRINIVIL; ZESTRIL) 40 MG tablet Take 40 mg by mouth once daily. Active simvastatin (ZOCOR) 20 MG tablet Take 20 mg by mouth at bedtime. Active amLODIPine (NORVASC) 5 MG tablet Take 5 mg by mouth at bedtime. Active potassium chloride (KLOR-CON M) 10 MEQ tablet Take 10 mEq by mouth once daily Active metoprolol tartrate (LOPRESSOR) 25 MG tabletIndications:adelaida ent takes 1/2 pill BID Take 12.5 mg by mouth 2 times daily Reasons: patient takes 1/2 pill BID Active senna-docusate (SENOKOT-S) 8.6-50 MG tablet Take 1 Tab by mouth 2 times daily 09/12/2016 Active HYDROcodone-acetaminop hen (NORCO) 10-325 MG tablet Take 0.5-1 Tabs by mouth every 6 hours as needed 90 Tab 12/02/2016 Active Active Problems Problem Noted Date Diagnosed Date Primary osteoarthritis of right hip 07/16/2016 Status post total right knee replacement 016 Osteoarthrosis involving lower leg 10/10/2014 Overview (09/09/2015): 2015 IMO Updt Social History Tobacco Use Types Packs/Day Years Used Date Smoking Tobacco: Never Alcohol Use Standard Drinks/Week Comments No 0 (1 standard drink = 0.6 oz pur e alcohol) Sex and Gender Information Value Date Recorded Sex Assigned at Not on file Gender Identity Not on file Sexual Orientation Not on file Last Filed Vital Signs Vital Sign Reading Time Taken Comments Blood Pressure 137/52 09/13/2016 8:20 AM CDT Pulse 79 09/13/2016 8:20 AM CDT Temperature 36.9 C (98.4 F) 09/13/2016 8:20 AM CDT Respiratory Rate 18 09/13/2016 8:20 AM CDT Oxygen Saturation 98% 09/13/2016 8:20 AM CDT Inhaled Oxygen Concentration - - Weight 132.7 kg (292 lb 9.6 oz) 09/11/2016 1:00 PM CDT prior Height 170.2 cm (5' 7 ) 09/11/2016 1:00 PM CDT Body Mass Index 45.83 09/11/2016 1:00 PM CDT Functional Status Functional Status Response Date of Assess ment Is person deaf or have serious hearing difficult y? No 09/10/2016 Is person blind or have serious difficulty seein g? No 09/10/2016 Does person have serious dif ficulty walking/climbing stairs? Yes 09/10/2016 Does person have difficulty dressing/bathing? No 09/10/2016 Does person have difficulty doing errands alone? No 09/10/2016 Cognitive Status Response Date of Assessm ent Does person have difficulty concentrating/remembering/making decisions? No 09/10/2016 Plan of Treatment Not on file Medical Devices Implanted Type Area Profiler Operator Device Identifier Shelf Expiration Date Model / Serial / Lot Jordy Acetabular Shell, 54mm Implanted:Qty: 1 on 05/17/2014 by Musa Hamilton IV, MD at [facility] Left: Hip 04/14/2024 / / [id number] Jordy Acetabular Liner Implanted:Qty: 1 on 05/17/2014 by Musa Hamilton IV, MD at [facility] Left: Hip 02/12/2019 / / [id number] Jordy Bone Screw, 6.5mm X 25mm Implanted:Qty: 1 on 05/17/2014 by Musa Hamilton IV, MD at [facility] Left: Hip 02/13/2024 / / [id number] Jordy Femoral Stem, Size 3 Implanted:Qty: 1 on 05/17/2014 by Musa Hamilton IV, MD at [facility] Left: Hip 11/12/2018 [id number] / / [id number] Jordy Femoral Head, 36mm Plus 3.5mm Implanted:Qty: 1 on 05/17/2014 by Musa Hamilton IV, MD at [facility] Left: Hip 12/14/2023 [id number] / / [id number] Stem Tib Base Prim Grit Blast 18 X 55mm Implanted:Qty: 1 on 07/04/2015 by Musa Hamilton IV, MD at [facility] Right: Knee [employer] 04/23/2025 [id number] / / [id number] Pat Resurf 29mm Implanted:Qty: 1 on 07/04/2015 by Musa Hamilton IV, MD at [facility] Right: Knee [employer] 06/14/2024 [id number] / / [id number] Scrw Bone 30mm X 6.5mm Implanted:Qty: 3 on 07/04/2015 by Musa Hamilton IV, MD at [facility] Right: Knee [employer] 02/07/2025 [id number] / / [id number] Scrw Bone Sweetie Ii Tib 6.5mm X 25mm Implanted:Qty: 1 on 07/04/2015 by Musa Hamilton IV, MD at [facility] Right: Knee [employer] 10/13/2024 [id number] / / [id number] Jason Bone Cmw Implanted:Qty: 1 on 07/04/2015 by Musa Hamilton IV, MD at [facility] Right: Knee [employer] 09/12/2017 [id number] / / [id number] Legion Por Cr Fem R Sz 5 Implanted:Qty: 1 on 07/04/2015 by Musa Hamilton IV, MD at [facility] Right: Knee [employer] 04/07/2025 [id number] / / [id number] Ins Xlpe Dished Artc Sz 3-4 11mm Implanted:Qty: 1 on 07/04/2015 by Musa Hamilton IV, MD at [facility] Right: Knee [employer] 05/15/2023 [id number] / / [id number] Legion Por Avina Tib Base R Sz 3 Implanted:Qty: 1 on 07/04/2015 by Musa Hamilton IV, MD at [facility] Right: Knee [employer] 01/12/2025 [id number] / / [id number] Shell Actb 54mm Hip Lmt Hl Ti Por Implanted:Qty: 1 on 09/10/2016 by Musa Hamilton IV, MD at [facility] Right: Hip [employer] 07/28/2026 [id number] / / [id number] Liner Actb Mxrm +3mm 23 36mm E-Poly Hip Implanted:Qty: 1 on 09/10/2016 by Musa Hamilton IV, MD at [facility] Right: Hip [employer] 06/18/2021 [id number] / / [id number] Taperloc Complete Micro Primary Femoral Proous Coated Stem Reduced Distal [id number] Standard Offset Type 1 Taper Implanted:Qty: 1 on 09/10/2016 by Musa Hamilton IV, MD at [facility] Right: Hip 05/13/2026 [id number] / / [id number] Slv Centering G7 Std Ofst Tpr Hip Ti Ty Implanted:Qty: 1 on 09/10/2016 by Musa Hamilton IV, MD at [facility] Right: Hip [employer] 06/28/2026 [id number] / / [id number] Head Fem 36mm Hip Blx D Biolox Optn G7 Implanted:Qty: 1 on 09/10/2016 by Musa Hamilton IV, MD at [facility] Right: Hip [employer] 05/15/2026 [id number] / / [id number] Ringloc Replacement Ring Size 23 Implanted:Qty: 1 on 09/10/2016 by Musa Hamilton IV, MD at [facility] Right: Hip 11/13/2017 [id number] / / [id number] Administered Medications Advance Directives * Full Code (Latest Code Status on File) Date Activated Date Inactivated Comments 09/10/2016 2:41 PM 09/13/2016 1:28 PM * Full Code Date Activated Date Inactivated Comments 07/04/2015 2:59 PM 07/07/2015 2:03 PM * Full Code Date Activated Date Inactivated Comments 05/17/2014 9:56 AM 05/21/2014 3:02 PM Care Teams Deicer Repairer Relationship Specialty Start Date End Date Cindi Soriano MD [address] [place] [address] PCP - General Family Medicine 04/18/14 [place] [id number] [facility] [address] [place] [address] Orthopedic Surgery 04/18/14 Varun Hahn MD [address] [facility] [address] [place], [place] [id number] Cardiovascular Disease 04/26/15 Varun Hahn MD [address] [facility] [address] [place], [place] [address] Cardiovascular Disease 07/15/16
--- OUTSIDE RECORDS SUMMARY | 2024-08-05 14:51 | XMS_ITS | Patient Health Summary ---
Author Organization [facility] Address [address] [place] [address] Care Team Providers Care Pattern Gater Name Role Phone Alfonso GILMORE MD, Musa Unavailable [phone] Cindi Soriano MD Primary Care Provider [phone] Varun Hahn MD Unavailable [phone] Varun Hahn MD Unavailable [phone] [facility],non-owned Affiliates and Associated Physician Practices is amultiple site organization consisting of ambulatory clinics and hospital sitesin [place], [place], [place] and [place]. This disclosure is being madepursuant to the Care Everywhere program and may not contain all information available regarding this patient. Last updated 18.[facility] Allergies No known active allergies Medications * Be aware that medications may not be up to date on this document. Alwaysverify current medications with the patient. * Sotalol HCl, AF, 160 MG TABS Take by mouth 2 times daily. * Warfarin Sodium (COUMADIN PO) Take 6 mg by mouth once daily * triamterene-hydrochlorothiazide (DYAZIDE) 37.5-25 MG capsule Take 1 Cap by mouth once daily. * terazosin (HYTRIN) 1 MG capsule Take 1 mg by mouth once daily. * lisinopril (PRINIVIL; ZESTRIL) 40 MG tablet Take 40 mg by mouth once daily. * simvastatin (ZOCOR) 20 MG tablet Take 20 mg by mouth at bedtime. * amLODIPine (NORVASC) 5 MG tablet Take 5 mg by mouth at bedtime. * potassium chloride (KLOR-CON M) 10 MEQ tablet Take 10 mEq by mouth once daily * metoprolol tartrate (LOPRESSOR) 25 MG tablet Take 12.5 mg by mouth 2 times daily Reasons: patient takes 1/2 pill BID * senna-docusate (SENOKOT-S) 8.6-50 MG tablet(Started 09/12/2016) Take 1 Tab by mouth 2 times daily * HYDROcodone-acetaminophen (NORCO) 10-325 MG tablet(Started 12/02/2016) Take 0.5-1 Tabs by mouth every 6 hours as needed Active Problems Problem Noted Date Diagnosed Date Primary osteoarthritis of right hip 07/16/2016 Status post total right knee replacement 016 Osteoarthrosis involving lower leg 10/10/2014 Social History Tobacco Use Types Packs/Day Years [...] Mass Index 45.83 09/11/2016 1:00 PM CDT Medical Devices Implanted Type Area Activities Director Scouting Device Identifier Shelf Expiration Date Model / Serial / Lot Jordy Acetabular Shell, 54mm Implanted:Qty: 1 on 05/17/2014 by Musa Hamilton IV, MD at [facility] Left: Hip 04/14/2024 / / [id number] Jordy Acetabular Liner Implanted:Qty: 1 on 05/17/2014 by Musa Hamilton IV, MD at [facility] Left: Hip 02/12/2019 / / [id number] Jordy Bone Screw, 6.5mm X 25mm Implanted:Qty: 1 on 05/17/2014 by Musa Hamilton IV, MD at [facility] Left: Hip 02/13/2024 / / [id number] Jordy Femoral Stem, Size 3 Implanted:Qty: 1 on 05/17/2014 by Musa Hamilton IV, MD at [facility] Left: Hip 11/12/2018 [id number] / / [id number] Jordy Femoral Head, 36mm Plus 3.5mm Implanted:Qty: 1 on 05/17/2014 by Musa Hamilton IV, MD at [facility] Left: Hip 12/14/2023 [id number] / / [id number] Stem Tib Base Prim Grit Blast 18 X 55mm Implanted:Qty: 1 on 07/04/2015 by Musa Hamilton IV, MD at [facility] Right: Knee [employer] 04/23/2025 [id number] / / [id number] Pat Resurf 29mm Implanted:Qty: 1 on 07/04/2015 by Musa Hamilton IV, MD at [facility] Right: Knee [employer] 06/14/2024 [id number] / / [id number] Scrw Bone 30mm X 6.5mm Implanted:Qty: 3 on 07/04/2015 by Musa Hamilton IV, MD at [facility] Right: Knee [employer] 02/07/2025 [id number] / / [id number] Scrw Bone Sweetie Ii Tib 6.5mm X 25mm Implanted:Qty: 1 on 07/04/2015 by Musa Hamilton IV, MD at [facility] Right: Knee [employer] 10/13/2024 [id number] / / [id number] Jason Bone Cmw Implanted:Qty: 1 on 07/04/2015 by Musa Hamilton IV, MD at [facility] Right: Knee [employer] 09/12/2017 [id number] / / [id number] Legion Por Cr Fem R Sz 5 Implanted:Qty: 1 on 07/04/2015 by Musa Hamilton IV, MD at [facility] Right: Knee [employer] 04/07/2025 [id number] / / [id number] Ins Xlpe Dished Artc Sz 3-4 11mm Implanted:Qty: 1 on 07/04/2015 by Musa Hamilton IV, MD at [facility] Right: Knee [employer] 05/15/2023 [id number] / / [id number] Legion Por Avina Tib Base R Sz 3 Implanted:Qty: 1 on 07/04/2015 by Musa Hamilton IV, MD at [facility] Right: Knee [employer] 01/12/2025 [id number] / / [id number] Shell Actb 54mm Hip Lmt Hl Ti Por Implanted:Qty: 1 on 09/10/2016 by Musa Hamilton IV, MD at [facility] Right: Hip [employer] 07/28/2026 [id number] / / [id number] Liner Actb Mxrm +3mm 23 36mm E-Poly Hip Implanted:Qty: 1 on 09/10/2016 by Musa Hamilton IV, MD at [facility] Right: Hip [employer] 06/18/2021 [id number] / / [id number] Taperloc Complete Micro Primary Femoral Proous Coated Stem Reduced Distal 60l329tt Standard Offset Type 1 Taper Implanted:Qty: 1 on 09/10/2016 by Musa Hamilton IV, MD at [facility] Right: Hip 05/13/2026 [id number] / / [id number] Slv Centering G7 Std Ofst Tpr Hip Ti Ty Implanted:Qty: 1 on 09/10/2016 by Musa Hamilton IV, MD at [facility] Right: Hip [employer] 06/28/2026 [id number] / / [id number] Head Fem 36mm Hip Blx D Biolox Optn G7 Implanted:Qty: 1 on 09/10/2016 by Musa Hamilton IV, MD at [facility] Right: Hip [employer] 05/15/2026 [id number] / / [id number] Ringloc Replacement Ring Size 23 Implanted:Qty: 1 on 09/10/2016 by Musa Hamilton IV, MD at [facility] Right: Hip 11/13/2017 [id number] / / [id number] Procedures * XR HIP RIGHT 2VW OR MORE(Performed 12/13/2016) Performed for Primary osteoarthritis of right hip * XR PELVIS W RIGHT HIP 1VW(Performed 12/02/2016) Performed for Right hip pain * XR HIP RIGHT 2VW OR MORE(Performed 10/02/2016) Performed for Aftercare following right hip joint replacement surgery * CARDIAC EKG ORDER(Performed 09/17/2016) * CARDIAC RHYTHM STRIP ORDER(Performed 09/17/2016) * PT-INR(Performed 09/13/2016) * HGB HCT PANEL(Performed 09/12/2016) * HGB HCT PANEL(Performed 09/11/2016) * PT-INR(Performed 09/11/2016) * FL ROSALIA SURGERY LESS 60 MIN(Performed 09/10/2016) Performed for Closed right hip fracture, initial encounter (HCC) * OT EVAL AND TREAT(Performed 09/10/2016) * NEURAXIAL BLOCK(Performed 09/10/2016) * ARTHROPLASTY TOTAL HIP (ANTERIOR)(Performed 09/10/2016) * PT PTT PANEL(Performed 09/10/2016) * IMAGING/RADIOLOGY/XRAY RESULTS ORDER(Performed 08/28/2016) * XR CHEST 2VW(Performed 08/27/2016) Performed for Acute bronchitis, unspecified organism * COMPREHENSIVE METABOLIC PANEL(Performed 08/27/2016) Performed for Preop examination * CBC W AUTO DIFFERENTIAL(Performed 08/27/2016) Performed for Preop examination * CULTURE MSSA/MRSA(Performed 08/27/2016) Performed for Preop examination * XR HIP RIGHT 2VW OR MORE(Performed 07/15/2016) Performed for Status post total right knee replacement * XR KNEE RIGHT 3VW(Performed 07/15/2016) Performed for Status post total right knee replacement * XR KNEE RIGHT 3VW(Performed 09/25/2015) Performed for Status post total right knee replacement * XR KNEE RIGHT 3VW(Performed 08/14/2015) Performed for Status post total replacement of right hip * CARDIAC EKG ORDER(Performed 07/08/2015) * LAB RESULTS ORDER(Performed 07/08/2015) * PT-INR(Performed 07/07/2015) * PT-INR(Performed 07/06/2015) * HGB HCT PANEL(Performed 07/06/2015) * PT-INR(Performed 07/05/2015) * HGB HCT PANEL(Performed 07/05/2015) * NEURAXIAL BLOCK(Performed 07/04/2015) * ARTHROPLASTY TOTAL KNEE(Performed 07/04/2015) * PT PTT PANEL(Performed 07/04/2015) * CULTURE MSSA/MRSA(Performed 06/26/2015) Performed for Preop examination * XR KNEE RIGHT 2VW OR LESS(Performed 04/26/2015) Performed for Osteoarthrosis, unspecified whether generalized or localized, involving lower leg * XR HIP LEFT 2VW OR MORE(Performed 08/15/2014) Performed for S/P total hip arthroplasty * IMAGING/RADIOLOGY/XRAY RESULTS ORDER(Performed 05/24/2014) * CARDIAC RHYTHM STRIP ORDER(Performed 05/23/2014) * CARDIAC EKG ORDER(Performed 05/23/2014) * EKG 12-LEAD(Performed 05/21/2014) Performed for Atrial fibrillation (HCC) * PT-INR(Performed 05/21/2014) * MAGNESIUM BLOOD(Performed 05/20/2014) * BASIC METABOLIC PANEL (CALCIUM TOTAL)(Performed 05/20/2014) * TROPONIN I(Performed 05/20/2014) * DIGOXIN LEVEL(Performed 05/20/2014) * EKG 12-LEAD(Performed 05/20/2014) Performed for S/P hip replacement * PT-INR(Performed 05/20/2014) * PT-INR(Performed 05/19/2014) * HGB HCT PANEL(Performed 05/19/2014) * PT-INR(Performed 05/18/2014) * HGB HCT PANEL(Performed 05/18/2014) * ARTHROPLASTY TOTAL HIP(Performed 05/17/2014) Performed for Primary Localized Osteoarthrosis, Pelvic Region And Thigh * XR HIP LEFT 1VW(Performed 05/17/2014) Performed for S/P hip replacement * OT EVAL AND TREAT(Performed 05/17/2014) * NEURAXIAL BLOCK(Performed 05/17/2014) * GLUCOSE - POINT OF CARE(Performed 05/17/2014) * PT PTT PANEL(Performed 05/17/2014) * EKG 12-LEAD(Performed 04/18/2014) Performed for Preop examination * COMPREHENSIVE METABOLIC PANEL(Performed 04/18/2014) Performed for Preop examination * CBC W AUTO DIFFERENTIAL(Performed 04/18/2014) Performed for Preop examination * CULTURE MSSA/MRSA(Performed 04/18/2014) Performed for Preop examination * XR PELVIS 1 OR 2VW(Performed 04/18/2014) Performed for Left hip pain Results * XR HIP 2+ VW RIGHT (12/13/2016 12:26 PM CDT) Only the most recent of3 resultswithin the time period is included. Anatomical Region Laterality Modality Pelvis, Lower Extremity Computed Radiography Narrative 12/13/2016 1:20 PM CDT Eve Keith RT(R) 12/13/2016 1:20 PM See progress notes for results Musa Hamilton IV, MD DIAGNOSTIC IMAGING O RDERABLES * XR PELVIS W RIGHT HIP 1VW (12/02/2016 1:18 PM CDT) Anatomical Region Laterality Modality Pelvis Computed Radiogr aphy Narrative 12/04/2016 9:27 AM CDT Eve Keith RT(R) 12/04/2016 9:27 AM See progress notes for results Musa Hamilton IV, MD DIAGNOSTIC IMAGING O RDERABLES * CARDIAC EKG ORDER (09/17/2016 5:26 AM CDT) Only the most recent of3 resultswithin the time period is included. Narrative 09/17/2016 5:26 AM CDT Ordered by an unspecified provider. Scanned Document CARDIAC SERVICES ORD ERABLES * CARDIAC RHYTHM STRIP ORDER (09/17/2016 5:26 AM CDT) Only the most recent of2 resultswithin the time period is included. Narrative 09/17/2016 5:26 AM CDT Ordered by an unspecified provider. Scanned Document CARDIAC SERVICES ORD ERABLES * (ABNORMAL) PT-INR (09/13/2016 3:12 AM CDT) Only the most recent of9 resultswithin the time period is included. PT 11.8(H) 9.5 - 11.6 sec 09/13/2016 4:14 AM CDT [facility] INR 1.2(H) 0.9 - 1.1 09/13/2016 4:14 AM CDT [facility] Blood BLOOD SPECIMEN / Unknown 09/13/2016 3:12 AM CDT 09/13/2016 3:17 AM CDT Narrative [facility] - 09/13/2016 4:14 AM CDT Conventional Warfarin Anticoagulant Therapy: INR Reference Range: 2.0-3.0 Intensive Warfarin Anticoagulant Therapy: INR Reference Range: 2.5-3.5 Musa Hamilton IV, MD LAB - COAGULATION OR DERABLES Performing Organization Address [facility] de Phone Number [facility] [address] [place] [address] * (ABNORMAL) HGB HCT PANEL (09/12/2016 12:43 PM CDT) Only the most recent of6 resultswithin the time period is included. Hemoglobin 10.1(L) 12.0 - 15.6 gm/dL 09/12/2016 12:54 PM CDT [facility] Hematocrit 33.0(L) 35.9 - 45.5 % 09/12/2016 12:54 PM CDT [facility] Blood BLOOD SPECIMEN / Unknown 09/12/2016 12:43 PM CDT 09/12/2016 12:50 PM CDT Musa Hamilton IV, MD LAB - HEMATOLOGY ORD ERABLES Performing Organization Address [facility] de Phone Number [facility] [address] [place] [address] * FL ROSALIA SURGERY LESS 60 MIN (09/10/2016 2:42 PM CDT) Anatomical Region Laterality Modality Radiographic Patricia ging 09/10/2016 2:54 PM CDT Narrative 09/10/2016 2:55 PM CDT FLUOROSCOPY: Less than 1 hour of fluoroscopy was utilized during a right hip surgery. No radiologist was present. Please refer to surgical report for details. 23.4 seconds fluoroscopy were provided Procedure Note Magy Infante MD - 09/10/2016 FLUOROSCOPY: Less than 1 hour of fluoroscopy was utilized during a right hip surgery. No radiologist was present. Please refer to surgical report for details. 23.4 seconds fluoroscopy were provided Musa Hamilton IV, MD FLUOROSCOPY ORDERABL ES * PT PTT PANEL (09/10/2016 10:17 AM CDT) Only the most recent of3 resultswithin the time period is included. PT 10.8 9.5 - 11.6 sec 09/10/2016 10:37 AM CDT [facility] INR 1.1 0.9 - 1.1 09/10/2016 10:37 AM CDT [facility] PTT 26.0 21.0 - 32.0 sec 09/10/2016 10:37 AM CDT [facility] Blood BLOOD SPECIMEN / Unknown 09/10/2016 10:17 AM CDT 09/10/2016 10:22 AM CDT Narrative [facility] - 09/10/2016 10:37 AM CDT Conventional Warfarin Anticoagulant Therapy: INR Reference Range: 2.0-3.0 Intensive Warfarin Anticoagulant Therapy: INR Reference Range: 2.5-3.5 Heparin Therapeutic Range for PTT: 47.7 - 68.6 seconds. Musa Hamilton IV, MD LAB - COAGULATION OR DERABLES [facility] [address] [place] [address] * IMAGING/RADIOLOGY/XRAY RESULTS ORDER (08/28/2016 6:48 PM CDT) Only the most recent of2 resultswithin the time period is included. Anatomical Region Laterality Modality Computed Radiogr aphy Narrative 08/28/2016 6:48 PM CDT Ordered by an unspecified provider. Scanned Document IMAGING * XR CHEST PA AND LATERAL (08/27/2016 11:28 AM CDT) Anatomical Region Laterality Modality Chest Radiographic Patricia ging 08/27/2016 11:3 2 AM CDT Impressions 08/27/2016 11:32 AM CDT No acute disease in the chest. Narrative 08/27/2016 11:32 AM CDT PA AND LATERAL CHEST INDICATION: Acute bronchitis FINDINGS: The lungs are clear. There is cardiomegaly. Aorta is calcified. The pulmonary vascularity is normal. The osseous structures are unremarkable. Bilateral glenohumeral joint replacements are noted. Procedure Note Tasha Abad MD - 08/27/2016 PA AND LATERAL CHEST INDICATION: Acute bronchitis FINDINGS: The lungs are clear. There is cardiomegaly. Aorta is calcified. The pulmonary vascularity is normal. The osseous structures are unremarkable. Bilateral glenohumeral joint replacements are noted. IMPRESSION No acute disease in the chest. Cindi Soriano MD DIAGNOSTIC IMAGING O TIGRE * (ABNORMAL) CULTURE MSSA/MRSA (08/27/2016 10:54 AM CDT) Only the most recent of3 resultswithin the time period is included. Culture Negative for methicillin-resist ant Staphylococcus aureus (MRSA) ADAIR 08/29/2016 6:40 AM CDT [facility] Culture Growth of Staphylococcus aureus (MSSA)(A) ADAIR 08/29/2016 6:40 AM CDT [facility]CRO[facility] Microbiology SPECIMEN FROM NASAL FOSSAE / Unknown 08/27/2016 10:54 AM CDT 08/27/2016 11:04 AM CDT Musa Hamilton IV, MD LAB - MICROBIOLOGY O RDERABLES [facility]CRO[facility]OLOG[facility] [address] [place] [address], [facility] [phone] * (ABNORMAL) CBC W AUTO DIFFERENTIAL (08/27/2016 10:54 AM CDT) Only the most recent of2 resultswithin the time period is included. WBC 8.2 4.4 - 10.7 x10E9/L 08/27/2016 11:09 AM CDT [facility] WBC Corrected x10E9/L 08/27/2016 11:09 AM CDT [facility] RBC 4.64 3.80 - 5.20 x10E12/L 08/27/2016 11:09 AM CDT [facility] Hemoglobin 12.2 12.0 - 15.6 gm/dL 08/27/2016 11:09 AM CDT [facility] Hematocrit 39.3 35.9 - 45.5 % 08/27/2016 11:09 AM CDT [facility] MCV 84.7 80.7 - 98.3 fl 08/27/2016 11:09 AM CDT [facility] MCH 26.3(L) 26.7 - 34.0 pg 08/27/2016 11:09 AM CDT [facility] MCHC 31.0 30.8 - 35.9 gm/dL 08/27/2016 11:09 AM CDT [facility] Platelet Count 326 153 - 416 x10E9/L 08/27/2016 11:09 AM CDT [facility] RDW-CV 16.5(H) 12.1 - 14.9 % 08/27/2016 11:09 AM CDT [facility] MPV 9.3(L) 9.4 - 12.9 fl 08/27/2016 11:09 AM CDT [facility] Neutrophils % 66.4 44.0 - 73.0 % 08/27/2016 11:09 AM CDT [facility] Lymphocytes % 20.6 20.0 - 43.0 % 08/27/2016 11:09 AM CDT [facility] Monocytes % 8.0 5.0 - 13.0 % 08/27/2016 11:09 AM CDT [facility] Eosinophils % 3.9 0.0 - 6.0 % 08/27/2016 11:09 AM CDT [facility] Basophils % 0.6 0.0 - 2.0 % 08/27/2016 11:09 AM CDT [facility] Immature Granulocytes 0.5 0 - 1 % 08/27/2016 11:09 AM CDT [facility] Neutrophil Absolute 5.41 2.01 - 7.14 x10E9/L 08/27/2016 11:09 AM CDT [facility] Lymphocytes Absolute 1.68 1.07 - 3.94 x10E9/L 08/27/2016 11:09 AM CDT [facility] Monocytes Absolute 0.65 0.26 - 1.07 x10E9/L 08/27/2016 11:09 AM CDT [facility] Eosinophils Absolute 0.32 0 - 0.47 x10E9/L 08/27/2016 11:09 AM CDT [facility] Basophils Absolute 0.05 0 - 0.08 x10E9/L 08/27/2016 11:09 AM CDT [facility] Immature Granulocytes Absolute 0.04 0.00 - 0.06 x10E9/L 08/27/2016 11:09 AM CDT [facility] nRBC Auto 0 /100 WBC 08/27/2016 11:09 AM CDT [facility] Blood BLOOD SPECIMEN / Unknown 08/27/2016 10:54 AM CDT 08/27/2016 11:04 AM CDT Musa Hamilton IV, MD LAB - HEMATOLOGY ORD ERABLES [facility] [address] [place] [address] * (ABNORMAL) COMPREHENSIVE METABOLIC PANEL (08/27/2016 10:54 AM CDT) Only the most recent of2 resultswithin the time period is included. Glucose 93 74 - 106 mg/dL 08/27/2016 11:24 AM CDT [facility] Sodium 140 136 - 145 mmol/L 08/27/2016 11:24 AM CDT [facility] Potassium 4.4 3.5 - 5.1 mmol/L 08/27/2016 11:24 AM CDT [facility] Chloride 102 98 - 107 mmol/L 08/27/2016 11:24 AM CDT [facility] CO2 31 22 - 31 mmol/L 08/27/2016 11:24 AM CDT [facility] Calcium 9.1 8.5 - 10.1 mg/dL 08/27/2016 11:24 AM CDT [facility] Anion Gap 7(L) 8 - 16 mmol/L 08/27/2016 11:24 AM CDT [facility] BUN 18 7 - 21 mg/dL 08/27/2016 11:24 AM CDT [facility] Creatinine 0.93 0.50 - 1.30 mg/dL 08/27/2016 11:24 AM CDT [facility] Alkaline Phosphatase 112 38 - 126 U/L 08/27/2016 11:24 AM CDT [facility] ALT 18 13 - 61 U/L 08/27/2016 11:24 AM CDT [facility] AST 13 5 - 40 U/L 08/27/2016 11:24 AM CDT [facility] Protein Total 7.3 6.4 - 8.2 gm/dL 08/27/2016 11:24 AM T [facility] Albumin 3.0(L) 3.4 - 5.0 gm/dL 08/27/2016 11:24 AM CDT [facility] Bilirubin Total 0.4 0.2 - 1.0 mg/dL 08/27/2016 11:24 AM T [facility] eGFR by MDRD >60 >60 mL/min/1.7 3m2 08/27/2016 11:24 AM T [facility] eGFR by MDRD >60 >60 mL/min/1.7 3m2 08/27/2016 11:24 AM CDT [facility] Blood BLOOD SPECIMEN / Unknown 08/27/2016 10:54 AM CDT 08/27/2016 11:04 AM CDT Musa Hamilton IV, MD [facility] Organization Address City/State/[place] de Phone Number [facility] [address] [place] [address] * XR KNEE 3 VW RIGHT (07/15/2016 12:23 PM LIQUOR GRINDER MILL OPERATOR) Only the most recent of4 resultswithin the time period is included. Anatomical Region Laterality Modality Lower Extremity Computed Radiogr aphy Narrative 07/19/2016 1:09 PM LIQUOR GRINDER MILL OPERATOR Desiree Rosa 07/19/2016 1:09 PM Please see progress notes for result. Musa Hamilton IV, MD DIAGNOSTIC IMAGING O RDERABLES * LAB RESULTS ORDER (07/08/2015 10:17 PM LIQUOR GRINDER MILL OPERATOR) Narrative 07/08/2015 10:17 PM LIQUOR GRINDER MILL OPERATOR Ordered by an unspecified provider. Scanned Document LAB - THERAPEUTIC DR LYNN MONITORING ORDERABLES * NEURAXIAL BLOCK (07/04/2015 12:04 PM LIQUOR GRINDER MILL OPERATOR) Narrative SalazarNick ford, HOME SECURITY ALARM INSTALLER-TELEPHONE ENGINEER - 07/04/2015 12:04 PM [employer] MILL OPERATOR Nick Salazar, HOME SECURITY ALARM INSTALLER-TELEPHONE ENGINEER 07/04/2015 12:04 PM NEURAXIAL BLOCK Patient Location: OR Pre Procedure Indication: surgical anesthesia Anticoagulation /Antithrombosis Status Confirmed: Yes Preanesthetic Checklist: patient identified, IV checked, site marked, risks and benefits discussed, surgical consent verified, monitors and equipment checked, pre-op evaluation done, informed consent obtained and questions answered / anesthesia plan accepted Monitors: BP and Pulse Ox Patient Condition: sedated, meaningful contact maintained throughout procedure Patient Position: sitting Procedure Block Performed: spinal Prep: Betadine Sterile Field: sterile gloves, sterile field established, cap/hat and mask Approach: midline Skin Numbed with: lidocaine 1% Spinal Needle Type: Quincke Needle Gauge: 22 G Needle Length: 3.5 in Placement Site: L2-3 Number of Attempts: 1 CSF: free flow, aspiration before injection and aspiration during injection Local Anesthetic: bupivacaine 0.75% in dextrose 2 Spinal Additive: fentanyl 25 mcg Events CSF return injection not painful no paresthesia no other event Degree of Difficulty: none Position Post Procedure: supine Vital signs monitored and stable throughout. See Anesthesia Intraop record for details. Block Performed by: Teri Cannon RRNA2 Musa Hamilton IV, MD GENERAL ANESTHESIA O TIGRE * XR KNEE 1 OR 2 VW RIGHT (04/26/2015 9:47 AM LIQUOR GRINDER MILL OPERATOR) Anatomical Region Laterality Modality Lower Extremity Radiographic Patricia ging Narrative 05/03/2015 1:45 PM LIQUOR GRINDER MILL OPERATOR Eve Keith, RT(R) 05/03/2015 1:45 PM See progress notes for results Musa Hamilton IV, MD DIAGNOSTIC IMAGING O TIGRE * XR HIP 2+ VW LEFT (08/15/2014 10:44 AM LIQUOR GRINDER MILL OPERATOR) Only the most recent of2 resultswithin the time period is included. Anatomical Region Laterality Modality Pelvis, Lower Extremity Radiogra phic Imaging Narrative 08/18/2014 11:15 AM LIQUOR GRINDER MILL OPERATOR Eve Iris Keith, RT(R) 08/18/2014 11:15 AM See progress notes for results Musa Hamilton IV, MD DIAGNOSTIC IMAGING O RDERABLES * EKG 12-LEAD (05/21/2014 10:58 AM LIQUOR GRINDER MILL OPERATOR) Only the most recent of3 resultswithin the time period is included. Ventricular Rate 67 BPM [facility] Atrial Rate 67 BPM [facility] P-R Interval 166 ms [facility] QRS Duration ms 96 ms [facility] Q-T Interval ms 392 ms [facility] QTC Calculation (Bezet) 414 ms [facility] Calculated P Irene 59 degrees [facility] Calculated R Irene 84 degrees [facility] Calculated T Irene 49 degrees [facility] Interpretation EKG Normal sinus rhythm Normal ECG When compared with ECG of 20-MAY-2014 07:12, Sinus rhythm has replaced Atrial flutter Vent. rate has decreased BY [address] no longer depressed in Inferior leads ST no longer depressed in Anterolateral leads T wave inversion no longer evident in Inferior leads T wave inversion no longer evident in Lateral leads Confirmed by CHLOÉ KUHN, YOUNG ([id number]) on 05/22/2014 9:28:51 AM [facility] 05/21/2014 10:5 8 AM LIQUOR GRINDER MILL OPERATOR 05/22/2014 9:28 AM LIQUOR GRINDER MILL OPERATOR Johnnie Anglin MD ECG ORDERABLES [facility] * (ABNORMAL) BASIC METABOLIC PANEL (CALCIUM TOTAL) (05/20/2014 2:13 PM LIQUOR GRINDER MILL OPERATOR) Glucose 110(H) 74 - 106 mg/dL 05/20/2014 2:36 PM LIQUOR GRINDER MILL OPERATOR [facility] Sodium 140 136 - 145 mmol/L 05/20/2014 2:36 PM LIQUOR GRINDER MILL OPERATOR [facility] Potassium 3.5 3.5 - 5.1 mmol/L 05/20/2014 2:36 PM LIQUOR GRINDER MILL OPERATOR [facility] Chloride 105 98 - 107 mmol/L 05/20/2014 2:36 PM LIQUOR GRINDER MILL OPERATOR [facility] CO2 30 22 - 31 mmol/L 05/20/2014 2:36 PM LIQUOR GRINDER MILL OPERATOR [facility] Calcium 8.2(L) 8.5 - 10.1 mg/dL 05/20/2014 2:36 PM LIQUOR GRINDER MILL OPERATOR [facility] LABORATORY Anion Gap 5 5 - 15 mmol/L 05/20/2014 2:36 PM LIQUOR GRINDER MILL OPERATOR [facility] BUN 20 7 - 21 mg/dL 05/20/2014 2:36 PM LIQUOR GRINDER MILL OPERATOR [facility] Creatinine 1.04 0.50 - 1.30 mg/dL 05/20/2014 2:36 PM LIQUOR GRINDER MILL OPERATOR [facility] eGFR by MDRD 54(L) >60 mL/min/1.7 3m2 05/20/2014 2:36 PM LIQUOR GRINDER MILL OPERATOR [facility] eGFR by MDRD >60 >60 mL/min/1.7 3m2 05/20/2014 2:36 PM LIQUOR GRINDER MILL OPERATOR [facility] Blood BLOOD SPECIMEN / Unknown 05/20/2014 2:13 PM LIQUOR GRINDER MILL OPERATOR 05/20/2014 2:17 PM LIQUOR GRINDER MILL OPERATOR Roberto Rangel MD LAB - CHEMISTRY ORDIris RAMOS Performing Organization Address City/[facility] Co de Phone Number [facility] [address] [place], [place] [id number] * MAGNESIUM BLOOD (05/20/2014 2:13 PM LIQUOR GRINDER MILL OPERATOR) Magnesium 1.7 1.6 - 2.6 mg/dL 05/20/2014 2:36 PM LIQUOR GRINDER MILL OPERATOR [facility] Blood BLOOD SPECIMEN / Unknown 05/20/2014 2:13 PM LIQUOR GRINDER MILL OPERATOR 05/20/2014 2:17 PM LIQUOR GRINDER MILL OPERATOR Roberto Rangel MD LAB - CHEMISTRY ORDIris RAMOS Performing Organization Address [facility] Co de Phone Number [facility] [address] [place], [place] [id number] * TROPONIN I (05/20/2014 8:37 AM LIQUOR GRINDER MILL OPERATOR) Troponin I <0.015 0.000 - 0.049 ng/mL 05/20/2014 9:04 AM LIQUOR GRINDER MILL OPERATOR [facility] Blood BLOOD SPECIMEN / Unknown 05/20/2014 8:37 AM LIQUOR GRINDER MILL OPERATOR 05/20/2014 8:36 AM LIQUOR GRINDER MILL OPERATOR Narrative [facility] - 05/20/2014 9:04 AM LIQUOR GRINDER MILL OPERATOR Note: Diagnosis of myocardial infarction requires symptoms of ischemia or EKG changes of ischemia and TNI >99th of normal (0.05 ng/mL). Troponin should be drawn on initial assessment and 3-6 hours later as clinically indicated. Any condition resulting in myocardial cell damage can increase cardiac troponin levels. In addition to myocardial infarction, these include but are not limited to CHF, arrhythmia, myocarditis, and non-cardiac related causes such as pulmonary embolism, renal failure and sepsis. Vicente Lozoya MD LAB - CHEMISTRY PARMJIT RAMOS Performing Organization Address [facility] Co de Phone Number [facility] [address] [place] [address] * (ABNORMAL) DIGOXIN LEVEL (05/20/2014 8:37 AM LIQUOR GRINDER MILL OPERATOR) Digoxin 0.3(L) 0.5 - 2.0 ng/mL 05/20/2014 9:16 AM LIQUOR GRINDER MILL OPERATOR [facility] Blood BLOOD SPECIMEN / Unknown 05/20/2014 8:37 AM LIQUOR GRINDER MILL OPERATOR 05/20/2014 8:36 AM LIQUOR GRINDER MILL OPERATOR Vicente Lozoya MD LAB - CHEMISTRY PARMJIT JOANIENAHUM Performing Organization Address [facility] Co de Phone Number [facility] [address] [place] [address] * XR HIP 1 VW LEFT AP (IN PACU) (05/17/2014 10:36 AM LIQUOR GRINDER MILL OPERATOR) Anatomical Region Laterality Modality Pelvis, Lower Extremity [facility] 05/17/2014 10:3 8 AM LIQUOR GRINDER MILL OPERATOR Narrative 05/17/2014 11:03 AM LIQUOR GRINDER MILL OPERATOR LEFT HIP SINGLE VIEW INDICATION: Left hip pain, status post hip replacement. FINDINGS: Left hemiarthroplasty is in satisfactory alignment. A noncemented short stem femoral component has been utilized. No bony fracture is seen. Edited by Martha Dang on 05/17/2014 10:40 AM Procedure Note Magy Infante MD - 05/17/2014 LEFT HIP SINGLE VIEW INDICATION: Left hip pain, status post hip replacement. FINDINGS: Left hemiarthroplasty is in satisfactory alignment. A noncemented short stem femoral component has been utilized. No bony fracture is seen. Edited by Martha Dang on 05/17/2014 10:40 AM Musa Hamilton IV, MD DIAGNOSTIC IMAGING O TIGRE * NEURAXIAL BLOCK (05/17/2014 8:42 AM LIQUOR GRINDER MILL OPERATOR) Narrative Nick Salazar APRN-TELEPHONE ENGINEER - 05/17/2014 8:42 AM LIQUOR GRINDER MILL OPERATOR HEATHER Garcia 05/17/2014 8:42 AM NEURAXIAL BLOCK Patient Location: OR Pre Procedure Indication: surgical anesthesia Preanesthetic Checklist: patient identified, IV checked, site marked, risks and benefits discussed, surgical consent verified, monitors and equipment checked, pre-op evaluation done, timeout performed, informed consent obtained and questions answered / anesthesia plan accepted Monitors: BP and Pulse Ox Patient Condition: awake Patient Position: sitting Procedure Block Performed: spinal Prep: Betadine Sterile Field: mask, cap/hat, sterile field established and sterile gloves Approach: midline Skin Numbed with: lidocaine 1% Spinal Needle Type: Quincke Needle Gauge: 22 G Needle Length: 3.5 in Placement Site: L3-4 Number of Attempts: 1 CSF: aspiration before injection and free flow Local Anesthetic: bupivacaine 0.75% in dextrose 2 ml Spinal Additive: fentanyl 25 mcg Events CSF return injection not painful Degree of Difficulty: none Position Post Procedure: supine Vital signs monitored and stable throughout. See Anesthesia Intraop record for details. Block Performed by: Nick Salazar CRNA Musa Hamilton IV, MD GENERAL ANESTHESIA O TIGRE * GLUCOSE - POINT OF CARE (05/17/2014 7:36 AM LIQUOR GRINDER MILL OPERATOR) Glucose WB/POC 88 70 - 106 mg/dL 05/17/2014 8:33 AM LIQUOR GRINDER MILL OPERATOR [facility] Blood BLOOD SPECIMEN / Unknown 05/17/2014 7:36 AM LIQUOR GRINDER MILL OPERATOR 05/17/2014 8:33 AM LIQUOR GRINDER MILL OPERATOR Musa Hamilton IV, MD LAB - POINT OF CARE ORDERABLES [facility] [address] [place] [address] * XR PELVIS 1 OR 2 VW (04/18/2014 11:19 AM LIQUOR GRINDER MILL OPERATOR) Anatomical Region Laterality Modality Pelvis Radiographic Patricia ging Narrative 04/20/2014 6:02 PM LIQUOR GRINDER MILL OPERATOR Eve Keith, RT(R) 04/20/2014 6:02 PM See progress notes for results Musa Hamilton IV, MD DIAGNOSTIC IMAGING O RDERABLES Care Teams Pattern Gater Relationship Specialty Start Date End Date Cindi Soriano MD [address] [place] [address] PCP - General Family Medicine 04/18/14 [place] [address] [facility] [address] [place] [id number] Orthopedic Surgery 04/18/14 Varun Hahn MD [address] [place] [address] [place] [address] Cardiovascular Disease 04/26/15 Varun Hahn MD [address] [place] [address] [place] [address] Cardiovascular Disease 07/15/16
--- OUTSIDE RECORDS SUMMARY | 2024-08-05 14:51 | XMS_ITS | Clinical Summary ---
Author Organization [facility] Address [address] [place] [address] Phone Care Team Providers Care Plastic Panel Installer Name Role Phone Cindi Soriano MD Primary Care Provider [phone] Allergies No known active allergies Medications sotalol (BETAPACE) 160 mg Oral TabIndications:Fa javon history of breast cancer in mother,Family history of breast cancer in sister,Abnormal mammogram, unspecified Take 160 mg by mouth 2 times daily. Active DIGOXIN ORALIndications:F amily history of breast cancer in mother,Family history of breast cancer in sister,Abnormal mammogram, unspecified Take by mouth. 0.125mg Active WARFARIN SODIUM (WARFARIN ORAL)Indications: Family history of breast cancer in mother,Family history of breast cancer in sister,Abnormal mammogram, unspecified Take by mouth. 8mg Active triamterene-hydro chlorothiazide (DYAZIDE) 37.5-25 mg Oral capsuleIndication s:Family history of breast cancer in mother,Family history of breast cancer in sister,Abnormal mammogram, unspecified Take 1 Cap by mouth daily manager hospice. Active terazosin (HYTRIN) 1 mg Oral capsuleIndication s:Family history of breast cancer in mother,Family history of breast cancer in sister,Abnormal mammogram, unspecified Take 1 mg by mouth daily at bedtime. Active VALSARTAN (DIOVAN ORAL)Indications: Family history of breast cancer in mother,Family history of breast cancer in sister,Abnormal mammogram, unspecified Take by mouth. 325mg Active lisinopril (PRINIVIL) 40 mg Oral tabletIndications :Family history of breast cancer in mother,Family history of breast cancer in sister,Abnormal mammogram, unspecified Take 40 mg by mouth daily. Active simvastatin (ZOCOR) 20 mg Oral tabletIndications :Family history of breast cancer in mother,Family history of breast cancer in sister,Abnormal mammogram, unspecified Take 20 mg by mouth Daily LATE. Active aspirin (VANCE) 81 mg Oral TabIndications:Fa javon history of breast cancer in mother,Family history of breast cancer in sister,Abnormal mammogram, unspecified Take 81 mg by mouth daily. Active GLUCOSAMINE HCL ORALIndications:F amily history of breast cancer in mother,Family history of breast cancer in sister,Abnormal mammogram, unspecified Take by mouth. 600mg Active PAROXETINE HCL ORALIndications:F amily history of breast cancer in mother,Family history of breast cancer in sister,Abnormal mammogram, unspecified Take by mouth. 1200mg Active sertraline (ZOLOFT) 100 mg Oral tabletIndications :Family history of breast cancer in mother,Family history of breast cancer in sister,Abnormal mammogram, unspecified Take 100 mg by mouth daily. Active Active Problems Patient Care Coordination No te Formatting of this note migh t be different from the original. Pt denies any family hx of ovarian ca Primary Care: Cindi Soriano MD Referring Provider: Cindi Soriano [address] [place] [address] Problem Noted Date Diagnosed Date Atrial fibrillation 11/22/2009 Overview (11/22/2009): Since Jun 2009 paroxysmal Family history of breast cancer in mother 2009 Overview (11/22/2009): 74 Family history of breast cancer in sister 2009 Overview (11/22/2009): 32 HTN (hypertension) Sleep apnea Hay fever Resolved Problems Problem Noted Date Diagnosed Date Resolved Date A fib 11/22/2009 Family History Medical History Relation Name Comments Heart Disease Brother Heart Disease Father Breast Cancer Mother 74 Heart Disease Mother Other Mother diabetes Breast Cancer Sister 32 Relation Name Status Comments Brother Father Mother Alive Sister Social History Tobacco Use Types Packs/Day Years Used Date Smoking Tobacco: Never Alcohol Use Standard Drinks/Week Comments Yes 0 (1 standard drink = 0.6 oz pur e alcohol) rarely Comments Unknown Sex and Gender Information Value Date Recorded Sex Assigned at Not on file Legal Sex Female 5:53 AM DRUM SANDER SETTER Gender Identity Not on file Sexual Orientation Not on file Occupation Industry Job Start Date Job End Date Not on file Not on file Not on file Not on file Last Filed Vital Signs Vital Sign Reading Time Taken Comments Blood Pressure 126/80 11/22/2009 11:35 AM CDT Pulse - - Temperature - - Respiratory Rate - - Oxygen Saturation - - Inhaled Oxygen Concentration - - Weight 108.9 kg (240 lb) 11/25/2009 8:45 AM CDT Height 172.7 cm (5' 8 ) 11/22/2009 11:35 AM CDT Body Mass Index 36.49 11/22/2009 11:35 AM CDT Plan of Treatment Health Maintenance Due Date Last Done Comments DTAP/TDAP/TD VACCINES (1 - Tdap) 1972 COLORECTAL SCREENING 1998 Colorectal Cancer Screening 1998 FIT-DNA Q 3 years 1998 FIT/FOBT Q 1 year 1998 Flex Sig/CT Colonography Q 5 years 1998 PNEUMOCOCCAL VACCINE 65+ YEA RS (1 of 1 - PCV) 2003 ZOSTER VACCINE (1 of 2) 2003 BREAST CANCER SCREENING 06/11/2011 06/11/2010, 11/15 OSTEOPOROSIS SCREENING 2018 INFLUENZA VACCINE (#1) 2024 RSV VACCINE (60+ or ) (1 - 1-dose 75+ series) 2028 Procedures Procedure Name Priority Date/Time Associated Diagnosis Comments MAMMO DIAGNOSTIC UNI RIGHT W OR WO CAD Routine 06/11/2010 12:13 PM DRUM SANDER SETTER Abnormal mammogram from Last 3 Months or Most Recently Relevant to Health Maintenance Results * MAMMO DIGITAL DIAG UNI RIGHT (06/11/2010 12:13 PM DRUM SANDER SETTER) Anatomical Region Laterality Modality Breast Right Mammography Impressions 06/12/2010 11:42 AM DRUM SANDER SETTER : No mammographic evidence of malignancy. RECOMMENDATION: Another 6 month followup study which is also time for bilateral screening mammogram. OVERALL ASSESSMENT: BIRADS category 2 - Benign findings Narrative 06/12/2010 11:42 AM DRUM SANDER SETTER RIGHT DIAGNOSTIC DIGITAL MAMMOGRAMS WITH COMPUTER ASSISTED DIAGNOSIS RIGHT BREAST ULTRASOUND DATE OF EXAM: 06/11/2010. HISTORY: Six-month followup of the right breast lymph nodes. MAMMOGRAPHY FINDINGS: Comparison studies are dated 11/15/2009 and 06/07/2006. Several small right axillary lymph nodes are again visualized. The breast tissues are almost entirely fat. No significant mass, malignant calcifications or architectural distortion is seen. The images were reviewed using the CAD system. RIGHT BREAST ULTRASOUND FINDINGS: Two small lymph nodes are again visualized in the right axillary region with fatty keshawn. These measure 1.1 cm and 1 cm respectively. No abnormal acoustic shadowing is seen. These lymph nodes appear benign. No other solid mass is visualized. Procedure Note Daniela Ewing MD - 06/12/2010 RIGHT DIAGNOSTIC DIGITAL MAMMOGRAMS WITH COMPUTER ASSISTED DIAGNOSIS RIGHT BREAST ULTRASOUND DATE OF EXAM: 06/11/2010. HISTORY: Six-month followup of the right breast lymph nodes. MAMMOGRAPHY FINDINGS: Comparison studies are dated 11/15/2009 and06/07/2006. Several small right axillary lymph nodes are again visualized.The breast tissues are almost entirely fat. No significant mass, malignantcalcifications or architectural distortion is seen. The images werereviewed using the CAD system. RIGHT BREAST ULTRASOUND FINDINGS: Two small lymph nodes are againvisualized in the right axillary region with fatty keshawn. These measure 1.1cm and 1 cm respectively. No abnormal acoustic shadowing is seen. Theselymph nodes appear benign. No other solid mass is visualized. IMPRESSION: No mammographic evidence of malignancy. RECOMMENDATION: Another 6 month followup study which is also time forbilateral screening mammogram. OVERALL ASSESSMENT: BIRADS category 2 - Benign findings Rand Raza MD MAMMO ORDERABLES Final Result from Last 3 Months or Most Recently Relevant to Health Maintenance Insurance [employer] O OPEN ACCESS Care Teams Plastic Panel Installer Relationship Specialty Start Date End Date Cindi Soriano MD [address] [place] [id number] PCP - General Family Practice 11/22/09
--- OUTSIDE RECORDS SUMMARY | 2024-08-05 14:51 | XMS_ITS | Clinical Summary ---
Author Organization [facility] Address [address] [place] [address] Care Team Providers Care Human Resources Compensation Analyst Name Role Phone Unavailable Primary Care Provider Unavailabl e Social History Tobacco Use Types Packs/Day Years Used Date Smoking Tobacco: Never Comments Unknown Sex and Gender Information Value Date Recorded Sex Assigned at Not on file Legal Sex Female 10:36 PM CDT Gender Identity Not on file Sexual Orientation Not on file Last Filed Vital Signs Vital Sign Reading Time Taken Comments Blood Pressure 160/90 10/02/2009 10:12 AM CDT Pulse 49 10/02/2009 10:12 AM CDT Regu lar Temperature - - Respiratory Rate 16 10/02/2009 10:12 AM CDT Oxygen Saturation - - Inhaled Oxygen Concentration - - Weight 110.7 kg (244 lb) 10/02/2009 10:12 AM CDT Height 167 cm (5' 5.75 ) 10/02/2009 10:12 AM CDT Body Mass Index 39.68 10/02/2009 10:12 AM CDT Plan of Treatment Health Maintenance Due Date Last Done Comments Colorectal Cancer Screening Colonoscopy (10 Years) 1953 Hepatitis C 1971 DTaP, Tdap and Td Vaccines ( 1 - Tdap) 1972 Mammogram Screening 1993 Zoster Vaccines (1 of 2) 2003 Dexa Scan (General) 2018 Pneumococcal Vaccine: 65+ Ye ars (1 of 1 - PCV) 2018 COVID-19 Vaccine ( - 2023-2 5 season) 2024 Influenza Adult (#1) 2024 RSV Immunization or 60+ Years (1 - 1-dose 75+ series) 2028 Meningococcal B Vaccine Aged Out No l onger eligible based on patient's age to complete this topic Meningococcal Vaccine Aged Out No evaristo yuliet eligible based on patient's age to complete this topic RSV Immunizations Under 20 Months Aged Out No longer eligible based on patient's age to complete this topic
--- OUTSIDE RECORDS SUMMARY | 2024-08-05 14:51 | XMS_ITS | Encounter Summary ---
Author Organization [facility] Address [address] [address] Care Team Providers Care Application Systems Administrator Name Role Phone Cindi Soriano MD Primary Care Provider [phone] Cindi Soriano MD Primary Care Provider [phone] Encounter Details Date Type Department Care Team (Late st Contact Info) Description 07/26/2016 Orders Only [facility] ProviderJohnson MD [address] [place] [address] Social History Tobacco Use Types Packs/Day Years Used Date Smoking Tobacco: Never Alcohol Use Standard Drinks/Week Comments No 0 (1 standard drink = 0.6 oz pur e alcohol) Comments Unknown Sex and Gender Information Value Date Recorded Sex Assigned at Not on file Legal Sex Female 2:11 AM INTERRELATED SPECIAL EDUCATION TEACHER Gender Identity Not on file Sexual Orientation Not on file documented as of this encounter Plan of Treatment Not on file documented as of this encounter Procedures Procedure Name Priority Date/Time Associated Diagnosis Comments CARDIOLOGY REPORT 07/26/2016 documented in this encounter Results * CARDIOLOGY REPORT (07/26/2016) Anatomical Region Laterality Modality Other Narrative 07/26/2016 Ordered by an unspecified provider. Historical Provider [facility] Final Result documented in this encounter Visit Diagnoses Not on filedocumented in this encounter Care Teams Application Systems Administrator Relationship Specialty Start Date End Date Cindi Soriano MD PCP - General 09/13/16 Cindi Soriano MD PCP - General 06/23/13 09/12/16 documented as of this encounter
--- OUTSIDE RECORDS SUMMARY | 2024-08-05 14:51 | XMS_ITS | Clinical Summary ---
Author Organization [facility] [address] Address [address] [place] [address] Care Team Providers Care Water Quality Specialist Name Role Phone Cindi Soriano MD Primary Care Provider [phone] Allergies No known active allergies Medications lisinopril (PRINIVIL,ZESTRIL ) 40 mg tablet Take 1 tablet (40 mg total) by mouth 2 (two) times a day Active potassium chloride ER (KLOR-CON) 10 mEq CR tablet Take 1 tablet/capsu le (10 mEq total) by mouth daily Active simvastatin (ZOCOR) 20 mg tablet Take 1 tablet (20 mg total) by mouth nightly Active triamterene-hydro CHLOROthiazide (MAXZIDE,DYAZIDE) 37.5-25 mg per tablet/capsule Take 1 tablet/capsu le by mouth daily Active warfarin (COUMADIN) 4 mg tabletIndications :atrial fibrillation Take 2 tablets (8 mg total) by mouth daily Active sotaloL (BETAPACE) 160 mg tablet TAKE 1 TABLET BY MOUTH TWICE DAILY 180 tablet 3 4 Active metFORMIN (GLUCOPHAGE) 500 mg tablet Take 1 tablet (500 mg total) by mouth 2 (two) times a day 4 Active amLODIPine (NORVASC) 5 mg tablet TAKE 1 TABLET NIGHTLY 90 tablet 1 4 Active terazosin (HYTRIN) 2 mg capsuleIndication s:Benign hypertension TAKE 1 CAPSULE NIGHTLY 90 capsule 1 4 Active metoprolol tartrate (LOPRESSOR) 50 mg immediate release tabletIndications :Essential hypertension Take 1 tablet (50 mg total) by mouth 2 (two) times a day 180 tablet 3 4 Active Active Problems Problem Noted Date Diagnosed Date Left carotid bruit 11/28/2023 High risk medication use 06/03/2023 Palpitations 03/21/2023 Persistent atrial fibrillation 07/29/2021 Assessment & Plan (07/29/2021 1:20 PM BORING MACHINE OPERATOR HELPER): Persistent atrial fibrillation, status post catheter ablation. She is doing well, but requires ongoing sotalol to maintain sinus rhythm. Hypercholesteremia 03/06/2021 S/P ablation of atrial fibrillation 08/30/2020 Morbid obesity with BMI of 50.0-59.9, adult 10/14 Elevated liver enzymes 09/07/2018 Polypharmacy 08/16/2018 Assessment & Plan (03/04/2022 11:18 AM CDT): 12-lead ECG today does not demonstrate any changes that would prohibit continued use of sotalol. We will continue the patient on the same dose and schedule. As long as the patient continues on this medication, an ECG should be performed at least every 6 months to monitor for toxicity. Assessment & Plan (07/29/2021 1:20 PM BORING MACHINE OPERATOR HELPER): 12-lead ECG today does not demonstrate any changes that would prohibit continued use of sotalol. We will continue the patient on the same dose and schedule. As long as the patient continues on this medication, an ECG should be performed at least every 6 months to monitor for toxicity. Assessment & Plan (12/30/2020 2:27 PM CDT): 12-lead ECG today does not demonstrate any changes that would prohibit continued use of sotalol. We will continue the patient on the same dose and schedule. As long as the patient continues on this medication, an ECG should be performed at least every 6 months to monitor for toxicity. Assessment & Plan (07/04/2020 2:55 PM BORING MACHINE OPERATOR HELPER): 12-lead ECG today does not demonstrate any changes that would prohibit continued use of sotalol. As above, we will reduce the dose to 80 mg twice daily. As long as the patient continues on this medication, an ECG should be performed at least every 6 months to monitor for toxicity. Encounter for monitoring sotalol therapy 018 Assessment & Plan (03/04/2022 11:10 AM CDT): The patient is anticoagulated with warfarin. If she experiences recurrent GI bleeding and can no longer take anticoagulation, Watchman left atrial appendage occlusion device placement can be considered. Assessment & Plan (07/29/2021 1:24 PM BORING MACHINE OPERATOR HELPER): She is anticoagulated with warfarin. She has a history of GI bleeding. If this recurs, we will consider Watchman placement. The patient will follow-up with me in 6 months for an office visit and twelve- lead ECG. Assessment & Plan (12/30/2020 2:28 PM CDT): The patient has a [id number] score of 3 (annualized risk of stroke 3%). I have therefore recommended that she remain anticoagulated for thromboprophylaxis. The patient will follow-up with me in 6 months for an office visit and twelve- lead ECG. Assessment & Plan (07/04/2020 2:56 PM BORING MACHINE OPERATOR HELPER): The patient has a [id number] score of 3 (annualized risk of stroke 3.2 %). I have therefore recommended that she remain anticoagulated for thromboprophylaxis. The patient will follow-up with me in 6 months for an office visit and twelve- lead ECG. Pulmonary hypertension 07/05/2016 Overview (09/20/2016): Pulmonary HTN Paroxysmal atrial fibrillation ([facility] 016 Overview (09/20/2016): Paroxysmal atrial fibrillation Assessment & Plan (03/21/2023 2:42 PM CDT): The patient is 3.5 years post status post ablation for atrial fibrillation, doing well. Maintaining sinus rhythm with sotalol. No changes to management at this time. The patient has a [id number]-UHOe score of 3. I have therefore recommended continued anticoagulation for thromboprophylaxis. The patient will follow-up with me in 12 months for an office visit and twelve- lead ECG. Atrial flutter (CMS/HCC) 05/06/2016 Overview (09/20/2016): Unspecified atrial flutter History of gastrointestinal hemorrhage 6 Overview (09/20/2016): H/O: GI bleed Chronic anticoagulation 05/23/2015 Overview (09/20/2016): Chronic anticoagulation Assessment & Plan (10/05/2018 10:54 AM CDT): Currently she remains anticoagulated on Coumadin. It is recommended that she remain anticoagulated for thromboprophylaxis. Essential hypertension 05/23/2015 Overview (09/20/2016): HTN (hypertension), benign Assessment & Plan (10/05/2018 10:54 AM CDT): Risk factor for stroke, remains anticoagulated. Atrial fibrillation and flutter 05/23/2015 Overview (09/20/2016): Atrial fibrillation and flutter Assessment & Plan (10/05/2018 10:53 AM CDT): History of highly symptomatic paroxysmal atrial fibrillation. She is status post radiofrequency catheter ablation on 08/26/2018. Other than a few brief episodes shortly after ablation, she has remained in sinus rhythm. No changes to her medications are made at this office visit. She can follow up in 2 months for an office visit and 12 lead EKG. WILMA on CPAP 12/22/2013 Overview (09/20/2016): WILMA on CPAP Resolved Problems Problem Noted Date Diagnosed Date Resolved Date retirement current use of ant icoagulant therapy 04/08/2022 10/14/2022 Persistent atrial fibrillation 08/13/2018 10/14/2022 Overview (08/13/2018): Added automatically from request for surgery [id number] Assessment & Plan (03/04/2022 11:09 AM CDT): Persistent atrial fibrillation, 2 and half years post ablation. Doing well, without recurrence, on sotalol. For now, we will continue the same medications. Assessment & Plan (12/30/2020 2:27 PM CDT): Persistent atrial fibrillation, status post catheter ablation. She is maintaining sinus rhythm, but has required the use of sotalol to do so. For now, we will continue at the current dose. We will continue to monitor and follow closely, and manage new / recurrent arrhythmia expectantly. Assessment & Plan (07/04/2020 2:55 PM BORING MACHINE OPERATOR HELPER): The patient is 11 month status post repeat ablation for paroxysmal atrial fibrillation. She is presently doing well and maintaining sinus rhythm with sotalol. I recommended that she decrease her dose of sotalol to 80 mg twice daily. We will continue to monitor and follow closely, and manage new / recurrent arrhythmia expectantly. Morbid obesity with BMI of 45.0-49.9, adult 01/30/2017 10/26/2018 Dyslipidemia 01/30/2017 04/08/2022 Morbid obesity due to excess calories 07/05/2016 05/04/2019 Overview (09/20/2016): Morbid obesity with BMI of 45.0-49.9, adult Assessment & Plan (10/05/2018 10:54 AM CDT): The patient's BMI is elevated. The importance of proper nutrition and regular exercise has been discussed with the patient at this office visit today especially how pertains to the treatment and prevention of arrhythmia. Preoperative state 05/23/2015 Overview (09/20/2016): Preoperative cardiovascular examination Obesity with body mass index 30 or greater 05/23/2015 07/19/2018 Overview (09/20/2016): Obesity (BMI 30-39.9) Adiposity 12/22/2013 07/19/2018 Overview (09/20/2016): Obesity Elevated troponin 04/08/2022 Nausea and vomiting 08/31/19 21 Encounters Date Type Department Care Team Description 07/15/2024 8:15 AM BORING MACHINE OPERATOR HELPER Office Visit [facility] [address] [place] [id number] Isaias Montoya MD Paroxysmal atrial fibrillation (CMS/HCC) (HCC) (Primary Dx); Pulmonary hypertension (HCC); Essential hypertension; Morbid obesity with BMI of 50.0-59.9, adult (HCC); WILMA on CPAP 07/15/2024 Orders Only [facility] [address] [place] [address] Isaias Montoya MD Left carotid bruit from Last 3 Months Surgical History Surgery Date Site/Laterality Comments CARDIOVERSION TOTAL SHOULDER ARTHROPLASTY Left TOTAL SHOULDER ARTHROPLASTY Right REVISION TOTAL SHOULDER ARTHROPLASTY Righ t TOTAL KNEE ARTHROPLASTY Right TOTAL HIP ARTHROPLASTY Left TOTAL HIP ARTHROPLASTY Right SECTION x 2 Medical History Medical History Date Comments Hx Other Medical Arrhythmias Atr ial fibrillation and atrial flutter Hypertension Hypertension Adiposity Obesity Atrial fibrillation (CMS/HCC) (HCC) Hyperlipidemia Sleep apnea cpap Limited range of motion (ROM) of shoulder right shoulder Family History Medical History Relation Name Comments Hypertension Brother 2 2 Hypertension; Hypertension Brother 3 Hypertension; Heart attack Father Myocardial Infa rction; Heart attack Mother Hypertension Mother Stent Mother Coronary Stent Placement; Relation Name Status Comments Brother 1 Alive Brother 2 2 Alive Brother 3 Father (Age 48) of [place] Mother (Age 79) Social History Tobacco Use Types Packs/Day Years Used Date Smoking Tobacco: Never Smokeless Tobacco: Never Tobacco Cessation:Counseling Given: Not Answered Alcohol Use Standard Drinks/Week Comments No 0 (1 standard drink = 0.6 oz pur e alcohol) Comments No Sex and Gender Information Value Date Recorded Sex Assigned at Not on file Legal Sex Female 2:11 AM BORING MACHINE OPERATOR HELPER Gender Identity Not on file Sexual Orientation Not on file Obstetrics History Last Filed Vital Signs Vital Sign Reading Time Taken Comments Blood Pressure 125/75 07/15/2024 8:47 AM BORING MACHINE OPERATOR HELPER Pulse 82 07/15/2024 8:26 AM BORING MACHINE OPERATOR HELPER Temperature 36.6 C (97.9 F) 08/12/2019 7:35 AM BORING MACHINE OPERATOR HELPER Respiratory Rate 20 08/12/2019 7:35 AM BORING MACHINE OPERATOR HELPER Oxygen Saturation 98% 07/15/2024 8:26 AM BORING MACHINE OPERATOR HELPER Inhaled Oxygen Concentration - - Weight 134.4 kg (296 lb 4.8 oz) 07/15/2024 8:26 AM BORING MACHINE OPERATOR HELPER Height 165.1 cm (5' 5 ) 07/15/2024 8:26 AM BORING MACHINE OPERATOR HELPER Body Mass Index 49.31 07/15/2024 8:26 AM BORING MACHINE OPERATOR HELPER Plan of Treatment Health Maintenance Due Date Last Done Comments Breast Cancer Screening-Mammogram 1955 Colon Cancer Screening-Colonoscopy 1955 Depression Screening 1953 Fall Risk Assessment 1953 Hepatitis C Screening 1953 Osteoporosis Screening-Bone Density Scan 1953 DTaP/Tdap/Td Vaccine (1 - Tdap) 1964 Hepatitis B Screening 1971 Pneumococcal vaccine 65+ (1 of 1 - PCV) 2003 Zoster Vaccine (1 of 2) 2003 Well Visit 65+ 2018 Influenza Vaccine (#1) 2024 Medical Devices Implanted Type Area Radiologic Electronic Specialist Device Identifier Shelf Expiration Date Model / Serial / Lot [employer] [id number] Vascade 6/7fr Bioabsorbable Vascular System Compression Collagen - [id number] - [id number] Implanted:Qty: 1 on 08/11/2019 by Braden Eng MD at [facility] Collagen [employer] 04/26/2021 [id number] / [id number] / [id number] [employer] [id number] System 6-12fr Mvp Venous Closure Vascade - [id number] - [id number] Implanted:Qty: 1 on 08/11/2019 by Braden Eng MD at [facility] Collagen [employer] 05/28/2023 [id number] / [id number] / [id number] [employer] [id number] System 6-12fr Mvp Venous Closure Vascade - [id number] - [id number] Implanted:Qty: 1 on 08/11/2019 by Braden Eng MD at [facility] Collagen [employer] 05/28/2021 [id number] / [id number] / [id number] [employer] [id number] System 6-12fr Mvp Venous Closure Vascade - [id number] - [id number] Implanted:Qty: 1 on 08/11/2019 by Braden Eng MD at [facility] Collagen [employer] 04/08/2021 [id number] 0U / [id number] / [id number] Insurance [facility] Address: [facility] [id number] [place] [id number] MEDICARE Playbasis [facility] MEDICARE [facility] MEDICARE [facility] MEDIC[facility] Address: [address] [place] [address] Advance Directives For more information, please contact: [phone] * Full Code (Latest Code Status on File) Date Activated Date Inactivated Comments 08/11/2019 7:53 PM 08/12/2019 5:06 PM * Full Code Date Activated Date Inactivated Comments 09/06/2018 5:05 AM 09/07/2018 7:09 PM Care Teams Water Quality Specialist Relationship Specialty Start Date End Date Cindi Soriano MD PCP - General 09/13/16
--- OUTSIDE RECORDS SUMMARY | 2024-08-05 14:51 | XMS_ITS | Encounter Summary ---
Author Organization [facility] Address [address] [place] [address] Care Team Providers Care Gravity Prospecting Observer Helper Name Role Phone Alfonso GILMORE MD, Musa Unavailable [phone] Cindi Soriano MD Primary Care Provider [phone] Varun Hahn MD Unavailable [phone] Varun Hahn MD Unavailable [phone] Encounter Details Date Type Department Care Team (Late st Contact Info) Description 08/01/2015 Therapy Visit EXTERNAL NON-[facility] DEPT Unknown, Provider Social History Tobacco Use Types Packs/Day Years Used Date Smoking Tobacco: Never Alcohol Use Standard Drinks/Week Comments No 0 (1 standard drink = 0.6 oz pur e alcohol) Sex and Gender Information Value Date Recorded Sex Assigned at Not on file Gender Identity Not on file Sexual Orientation Not on file documented as of this encounter Functional Status Functional Status Response Date of Assess ment Is person deaf or have serious hearing difficult y? No 07/07/2015 Is person blind or have serious difficulty seein g? No 07/07/2015 Does person have serious dif ficulty walking/climbing stairs? No 07/07/2015 Does person have difficulty dressing/bathing? No 07/07/2015 Does person have difficulty doing errands alone? No 07/07/2015 Cognitive Status Response Date of Assessm ent Does person have difficulty concentrating/remembering/making decisions? No 07/07/2015 documented as of this encounter Plan of Treatment Not on file documented as of this encounter Visit Diagnoses Not on filedocumented in this encounter Care Teams Gravity Prospecting Observer Helper Relationship Specialty Start Date End Date Cindi Soriano MD [address] [place] [address] PCP - General Family Medicine 04/18/14 [place] [address] [facility] [address] [place], [place] [id number] Orthopedic Surgery 04/18/14 Varun Hahn MD [address] [address] [address] [place] [address] Cardiovascular Disease 04/26/15 Varun Hahn MD [address] [facility] [address] [place], [place] [id number] Cardiovascular Disease 07/15/16 documented as of this encounter
--- OUTSIDE RECORDS SUMMARY | 2024-08-05 14:51 | XMS_ITS | Encounter Summary ---
Author Organization [facility] Address [address] [place] [address] Care Team Providers Care Back End Web Developer Name Role Phone Unavailable Primary Care Provider Unavailabl e Encounter Details Date Type Department Care Team (Late st Contact Info) Description 11/21/2018 Abstract SFL CONVERSION [address] [place] [address] , Generic Conversion, Social History Tobacco Use Types Packs/Day Years [...]
--- OUTSIDE RECORDS SUMMARY | 2024-08-05 14:51 | XMS_ITS | Clinical Summary ---
Author Organization [facility] Address [address] [place] [address] Care Team Providers Care Room Attendant Name Role Phone Alfonso GILMORE MD, Musa Unavailable [phone] Cindi Soriano MD Primary Care Provider Varun Hahn MD Unavailable [phone] Varun Hahn MD Unavailable [phone] Source Comments [facility],non-owned Affiliates and Associated Physician Practices is amultiple site organization consisting of ambulatory clinics and hospital sitesin [place], [place], [place] and [place]. This disclosure is being madepursuant to the Care Everywhere program and may not contain all information available regarding this patient. Last updated 18.[facility] Allergies No known active allergies Medications * [...] leg 10/10/2014 Overview (09/09/2015): 2015 IMO Updt Family History Medical History Relation Name Comments CAD (Coronary Artery Disease) Father from [place] Cancer Mother breast Diabetes Mother Hypertension Mother Cancer Sister breast Relation Name Status Comments Father Mother Sister Social History Tobacco Use Types Packs/Day [...] Mass Index 45.83 09/11/2016 1:00 PM CDT Plan of Treatment Health Maintenance Due Date Last Done Comments BONE DENSITY TESTING 1955 COLOGUARD (AGES 45-75) - COL ON CA SCREENING 1953 COLON MONITORING 1953 COLONOSCOPY - COLON CA SCREENING 1953 CT COLONOGRAPHY - COLON CA SCREENING 1955 Colorectal Cancer Screening 1953 FIT - COLON CA SCREENING 1953 FLEX SIG - COLON CA SCREENING 1953 MAMMOGRAM 1953 HEPATITIS C SCREENING 04/13/1971 DTAP/TDAP/TD VACCINES (1 - Tdap) 1972 PNEUMOCOCCAL VACCINE 50+ (1 of 1 - PCV) 2003 ZOSTER VACCINE (1 of 2) 2003 Respiratory Syncytial Virus (RSV) Vaccine Pt: or over 60 yrs (1 - Risk 60-74 years 1-dose series) 2013 COVID-19 VACCINE ( - 2023-2 5 season) 2024 INFLUENZA VACCINE (#1) 2024 DEPRESSION SCREENING 06/16/2024 HEPATITIS B VACCINE Aged Out No longe r eligible based on patient's age to complete this topic HIB VACCINE Aged Out No longer eligi ble based on patient's age to complete this topic HPV VACCINE Aged Out No longer eligi ble based on patient's age to complete this topic MENINGOCOCCAL (Group B) VACCINE Aged Out No longer eligible based on patient's age to complete this topic MENINGOCOCCAL VACCINE Aged Out No evaristo yuliet eligible based on patient's age to complete this topic Medical Devices Implanted Type Area Actuarial Science Professor Device Identifier Shelf Expiration Date Model / Serial / Lot Jordy Acetabular Shell, 54mm Implanted:Qty: 1 on 05/17/2014 by Musa Hamilton IV, MD at [facility] Left: Hip 04/14/2024 / / [id number] J[employer]y Acetabular Liner Implanted:Qty: 1 on 05/17/2014 by Musa Hamilton IV, MD at [facility] Left: Hip 02/12/2019 / / [id number] Jordy Bone Screw, 6.5mm X 25mm Implanted:Qty: 1 on 05/17/2014 by Musa Hamilton IV, MD at [facility] Left: Hip 02/13/2024 / / [id number] Jordy Femoral Stem, Size 3 Implanted:Qty: 1 on 05/17/2014 by Musa Hamilton IV, MD at [facility] Left: Hip 11/12/2018 [id number] / / [id number] Jordy Femoral Head, 36mm Plus 3.5mm Implanted:Qty: 1 on 05/17/2014 by Musa Hamilton IV, MD at [facility] Left: Hip 12/14/2023 [id number] / / [id number] Stem Tib Base Prim Grit Blast 18 X 55mm Implanted:Qty: 1 on 07/04/2015 by Musa Hamilton IV, MD at [facility] Right: Knee [employer] 04/23/2025 [id number] / / [id number] Pat Resurf 29mm Implanted:Qty: 1 on 07/04/2015 by Musa Hamilton IV, MD at [facility] Right: Knee [employer] 06/14/2024 [id number] / / [id number] Scrw Bone 30mm X 6.5mm Implanted:Qty: 3 on 07/04/2015 by Musa Hamilton IV, MD at [facility] Right: Knee [employer] 02/07/2025 [id number] / / [id number] Scrw Bone Sweetie Ii Tib 6.5mm X 25mm Implanted:Qty: 1 on 07/04/2015 by Musa Hamilton IV, MD at [facility] Right: Knee [employer] 10/13/2024 [id number] / / [id number] Jason Bone Cmw Implanted:Qty: 1 on 07/04/2015 by Musa Hamilton IV, MD at [facility] Right: Knee [employer] 09/12/2017 [id number] / / [id number] Legion Por Cr Fem R Sz 5 Implanted:Qty: 1 on 07/04/2015 by Musa Hamilton IV, MD at [facility] Right: Knee [employer] 04/07/2025 [id number] / / [id number] Ins Xlpe Dished Artc Sz 3-4 11mm Implanted:Qty: 1 on 07/04/2015 by Musa Hamilton IV, MD at [facility] Right: Knee [employer] 05/15/2023 [id number] / / [id number] Legion Por Avina Tib Base R Sz 3 Implanted:Qty: 1 on 07/04/2015 by Musa Hamilton IV, MD at [facility] Right: Knee [employer] 01/12/2025 [id number] / / [id number] Shell Actb 54mm Hip Lmt Hl Ti Por Implanted:Qty: 1 on 09/10/2016 by Musa Hamilton IV, MD at [facility] Right: Hip [employer] 07/28/2026 [id number] / / [id number] Liner Actb Mxrm +3mm 23 36mm E-Poly Hip Implanted:Qty: 1 on 09/10/2016 by Musa Hamilton IV, MD at [facility] Right: Hip [employer] 06/18/2021 [id number] / / [id number] Taperloc Complete Micro Primary Femoral Proous Coated Stem Reduced Distal [id number] Standard Offset Type 1 Taper Implanted:Qty: 1 on 09/10/2016 by Musa Hamilton IV, MD at [facility] Right: Hip 05/13/2026 [id number] / / [id number] Slv Centering G7 Std Ofst Tpr Hip Ti Ty Implanted:Qty: 1 on 09/10/2016 by Musa Hamilton IV, MD at [facility] Right: Hip [employer] 06/28/2026 [id number] / / [id number] Head Fem 36mm Hip Blx D Biolox Optn G7 Implanted:Qty: 1 on 09/10/2016 by Musa Hamilton IV, MD at [facility] Right: Hip [employer] 05/15/2026 [id number] / / [id number] Ringloc Replacement Ring Size 23 Implanted:Qty: 1 on 09/10/2016 by Musa Hamilton IV, MD at [facility] Right: Hip 11/13/2017 [id number] / / [id number] Advance Directives * Full Code (Latest Code Status on File) Date Activated Date Inactivated Comments 09/10/2016 2:41 PM 09/13/2016 1:28 PM * Full Code Date Activated Date Inactivated Comments 07/04/2015 2:59 PM 07/07/2015 2:03 PM * Full Code Date Activated Date Inactivated Comments 05/17/2014 9:56 AM 05/21/2014 3:02 PM Care Teams Room Attendant Relationship Specialty Start Date End Date Cindi Soriano MD [address] [place] [address] PCP - General Family Medicine 04/18/14 [place] [address] [facility] [address] [place] [address] Orthopedic Surgery 04/18/14 Varun Hahn MD [address] [place] [address] [place] [address] Cardiovascular Disease 04/26/15 Varun Hahn MD [address] [place] [address] [place] [address] Cardiovascular Disease 07/15/16
--- OUTSIDE RECORDS SUMMARY | 2024-08-05 14:51 | XMS_ITS | Referral Summary ---
Author Organization [facility] [address] [place] [address] 162 [address] [facility] [address] [place] [address] Care Team Providers Care Rib Cutter Name Role Phone Cindi Soriano MD Primary Care Provider [phone] Encounters Date Type Department Care Team Description 07/15/2024 Orders Only [facility] Medical [facility] Cardiology [address] [facility] [address] [place] [address] Isaias Montoya MD Left carotid bruit 07/15/2024 8:15 AM SPORTS ANALYST Office Visit [facility] Medical [facility] Cardiology [address] [place] [address] 162 [address] [place] [address] Isaias Montoya MD Paroxysmal atrial fibrillation (CMS/HCC) (HCC) (Primary Dx); Pulmonary hypertension (HCC); Essential hypertension; Morbid obesity with BMI of 50.0-59.9, adult (HCC); WILMA on CPAP from Last 3 Months Allergies No known active allergies Medications lisinopril [...] 07/29/2021 Assessment & Plan (07/29/2021 1:20 PM SPORTS ANALYST): Persistent atrial fibrillation, status post catheter ablation. [...] toxicity. Assessment & Plan (07/29/2021 1:20 PM SPORTS ANALYST): 12-lead ECG today does not demonstrate any [...] toxicity. Assessment & Plan (07/04/2020 2:55 PM SPORTS ANALYST): 12-lead ECG today does not demonstrate any [...] considered. Assessment & Plan (07/29/2021 1:24 PM SPORTS ANALYST): She is anticoagulated with warfarin. She has a history of GI bleeding. If this recurs, we will consider Watchman placement. The patient will follow-up with me in 6 months for an office visit and twelve- lead ECG. Assessment & Plan (12/30/2020 2:28 PM CDT): The patient has a MKV3EC0-MFXs score of 3 (annualized risk of stroke 3%). I have therefore recommended that she remain anticoagulated for thromboprophylaxis. The patient will follow-up with me in 6 months for an office visit and twelve- lead ECG. Assessment & Plan (07/04/2020 2:56 PM SPORTS ANALYST): The patient has a PGY9BQ6-IRLm score of 3 (annualized risk of stroke 3.2 %). I have therefore recommended that she remain anticoagulated for thromboprophylaxis. The patient will follow-up with me in 6 months for an office visit and twelve- lead ECG. Pulmonary hypertension 07/05/2016 Overview (09/20/2016): Pulmonary HTN Paroxysmal atrial fibrillation ([facility]) 016 Overview (09/20/2016): Paroxysmal atrial fibrillation Assessment & Plan (03/21/2023 2:42 PM CDT): The patient is 3.5 years post status post ablation for atrial fibrillation, doing well. Maintaining sinus rhythm with sotalol. No changes to management at this time. The patient has a QFT4ZM8-ZFFc score of 3. I have therefore recommended continued anticoagulation for thromboprophylaxis. The patient will follow-up with me in 12 months for an office visit and twelve- lead ECG. Atrial flutter ([facility]) 05/06/2016 Overview (09/20/2016): Unspecified atrial flutter History [...] Problem Noted Date Diagnosed Date Resolved Date director long term care current use of ant icoagulant therapy 04/08/2022 10/14/2022 Persistent atrial fibrillation 08/13/2018 10/14/2022 Overview (08/13/2018): Added automatically from request for surgery [id number] Assessment & Plan (03/04/2022 11:09 AM CDT): [...] expectantly. Assessment & Plan (07/04/2020 2:55 PM SPORTS ANALYST): The patient is 11 month status post [...] and prevention of arrhythmia. Preoperative state 05/23/2015 9 Overview (09/20/2016): Preoperative cardiovascular examination Obesity with body mass index 30 or greater 05/23/2015 07/19/2018 Overview (09/20/2016): Obesity (BMI 30-39.9) Adiposity 12/22/2013 07/19/2018 Overview (09/20/2016): Obesity Elevated troponin 04/08/2022 Nausea and vomiting 08/31/19 21 Social History Tobacco Use Types Packs/Day Years Used Date Smoking Tobacco: Never Smokeless Tobacco: Never Tobacco Cessation:Counseling Given: Not Answered Alcohol Use Standard Drinks/Week Comments No 0 (1 standard drink = 0.6 oz pur e alcohol) Comments No Sex and Gender Information Value Date Recorded Sex Assigned at Not on file Legal Sex Female 2:11 AM SPORTS ANALYST Gender Identity Not on file Sexual Orientation Not on file Last Filed Vital Signs Vital Sign Reading Time Taken Comments Blood Pressure 125/75 07/15/2024 8:47 AM SPORTS ANALYST Pulse 82 07/15/2024 8:26 AM SPORTS ANALYST Temperature 36.6 C (97.9 F) 08/12/2019 7:35 AM SPORTS ANALYST Respiratory Rate 20 08/12/2019 7:35 AM SPORTS ANALYST Oxygen Saturation 98% 07/15/2024 8:26 AM SPORTS ANALYST Inhaled Oxygen Concentration - - Weight 134.4 kg (296 lb 4.8 oz) 07/15/2024 8:26 AM SPORTS ANALYST Height 165.1 cm (5' 5 ) 07/15/2024 8:26 AM SPORTS ANALYST Body Mass Index 49.31 07/15/2024 8:26 AM SPORTS ANALYST Plan of Treatment Not on file Medical Devices Implanted Type Area Material Hauler Device Identifier Shelf Expiration Date Model / Serial / Lot [employer] [id number] Vascade 6/7fr Bioabsorbable Vascular System Compression Collagen - [id number] - [id number] Implanted:Qty: 1 on 08/11/2019 by Braden Eng MD at [facility] Collagen [employer] 04/26/2021 [id number] / [id number] / [id number] [employer] [id number] System 6-12fr Mvp Venous Closure Vascade - [id number] - [id number] Implanted:Qty: 1 on 08/11/2019 by Braden Eng MD at [facility] Collagen [employer] 05/28/2023 [id number] [id number] / [id number] / [id number] [employer] [id number] System 6-12fr Mvp Venous Closure Vascade - [id number] - [id number] Implanted:Qty: 1 on 08/11/2019 by Braden Eng MD at [facility] Collagen [employer] 05/28/2021 [id number]-[id number] [id number] / [id number] / [id number] [employer] [id number] System 6-12fr Mvp Venous Closure Vascade - [id number] - [id number] Implanted:Qty: 1 on 08/11/2019 by Braden Eng MD at [facility] Collagen [employer] 04/08/2021 [id number] 0U / [id number] / [id number] Insurance [employer] MEDICARE MEDICARE [facility] MEDICARE SOLUTIONS [facility]LY [facility] MEDICARE Advance Directives For more information, please contact: [phone] * Full Code (Latest Code Status on File) Date Activated Date Inactivated Comments 08/11/2019 7:53 PM 08/12/2019 5:06 PM * Full Code Date Activated Date Inactivated Comments 09/06/2018 5:05 AM 09/07/2018 7:09 PM Care Teams Rib Cutter Relationship Specialty Start Date End Date Cindi Soriano MD PCP - General 09/13/16
== END 2024-08-05 14:49 | disposition home or self-care (01) ==
PROVIDERS: PCP Family Medicine; Visit Provider Family Medicine
DX: Z12.31 Encounter for screening mammogram for malignant neoplasm of breast (principal)
CPT/HCPCS: 77063; 77067

== ENCOUNTER 2024-12-29 09:39 | Outpatient (CLI) | payer MEDICARE, SELFPAY ==
--- NOTE | ~2024-12-29 | XR_ITS ---
Clinical Indication: Cough PA and lateral views of the chest: Comparison: 10/11/2021 Findings: The lungs are clear, without evidence of focal consolidation or pleural effusion. Cardiome diastinal silhouette is stable. L1 compression fracture present. Impression: Clear lungs. Reviewed, dictated and finalized at location . Impression: Clear lungs.
--- OUTSIDE RECORDS SUMMARY | 2024-12-29 09:43 | XMS_ITS | Encounter Summary ---
Author Organization [facility] Address [address] [place] [address] Care Team Providers Care Locomotive Inspector Name Role Phone Unavailable Primary Care Provider Unavailabl e Encounter Details Date Type Department Care Team (Late st Contact Info) Description 11/21/2018 Abstract SFL CONVERSION [address] [place] [address] , Generic Conversion, Social History [...]
--- OUTSIDE RECORDS SUMMARY | 2024-12-29 09:43 | XMS_ITS | Encounter Summary ---
Author Organization [facility] Healthcare Address [address] [place] [address] Care Team Providers Care Clipman Name Role Phone Cindi Soriano MD Primary Care Provider [phone] Encounter Details Date Type Department Care Team (Late st Contact Info) Description 12/30/2017 Orders Only [facility] Health Information Management [address] [place] [address] Scanning, Provider Social History Tobacco Use Types Packs/Day Years Used Date Smoking Tobacco: Never Smokeless Tobacco: Never Alcohol Use Standard Drinks/Week Comments No 0 (1 standard drink = 0.6 oz pur e alcohol) Comments Unknown Sex and Gender Information Value Date Recorded Sex Assigned at Not on file Legal Sex Female 2:11 AM JV BASEBALL COACH Gender Identity Not on file Sexual Orientation Not on file documented as of this encounter Plan of Treatment Not on file documented as of this encounter Procedures Procedure Name Priority Date/Time Associated Diagnosis Comments SCAN - LABS 12/30/2017 documented in this encounter Results * SCAN - LABS (12/30/2017) us Provider Scanning Final Result documented in this encounter Visit Diagnoses Not on filedocumented in this encounter Care Teams Clipman Relationship Specialty Start Date End Date Cindi Soriano MD PCP - General 09/13/16 documented as of this encounter
--- OUTSIDE RECORDS SUMMARY | 2024-12-29 09:43 | XMS_ITS | Clinical Summary ---
Author Organization [facility] Address [address] [place] [place] [address] Care Team Providers Care Manager Market Intelligence Name Role Phone Alfonso GILMORE MD, Musa Unavailable [phone] Cindi Soriano MD Primary Care Provider Varun Hahn MD Unavailable [phone] Varun Hahn MD Unavailable [phone] Source Comments [facility],non-owned Affiliates and Associated Physician Practices is amultiple site organization consisting of ambulatory clinics and hospital sitesin [place], [place], [place] and [place]. This disclosure is being madepursuant to the Care Everywhere program and may not contain all information available regarding this patient. Last updated 18.[facility] Allergies No known active allergies Medications * Be aware that medications may not be up to date on this document. Alwaysverify current medications with the patient. Sotalol HCl, AF, 160 MG TABS Take by mouth 2 times daily. Active Warfarin Sodium (COUMADIN PO) Take 6 mg by mouth once daily Active triamterene-hyd rochlorothiazid e (DYAZIDE) 37.5-25 MG capsule Take 1 Cap [...] daily Active metoprolol tartrate (LOPRESSOR) 25 MG tabletIndicatio ns:patient takes 1/2 pill BID Take 12.5 mg by mouth 2 times daily Reasons: patient takes 1/2 pill BID Active senna-docusate (SENOKOT-S) 8.6-50 MG tablet Take 1 Tab by mouth 2 times daily 09/12/2016 Active HYDROcodone-yamila taminophen (NORCO) 10-325 MG tablet Take 0.5-1 Tabs by mouth every 6 hours as needed 90 Tab 12/02/2016 Active Active Problems Problem Noted Date Diagnosed Date Primary osteoarthritis of right hip 07/16/2016 Status post total right knee replacement 016 Osteoarthrosis involving lower leg 10/10/2014 Overview (09/09/2015): 2015 IMO Updt Family History Medical History Relation Name Comments CAD (Coronary Artery Disease) Father from [place] Cancer Mother breast Diabetes Mother Hypertension Mother Cancer Sister breast Relation Name Status Comments Father Mother Sister Social History Tobacco Use Types Packs/Day Years Used Date Smoking Tobacco: Never Alcohol Use Standard Drinks/Week Comments No 0 (1 standard drink = 0.6 oz pur e alcohol) Comments No Sex and Gender Information Value Date Recorded Sex Assigned at Not on file Legal Sex Female 11:20 AM CDT Gender Identity Not on file Sexual [...] PM CDT prior Height 170.2 cm (5' 7) 09/11/2016 1:00 PM CDT Body Mass Index [...] VACCINE ( - 2023-2 5 season) 2024 DEPRESSION SCREENING 06/16/2024 INFLUENZA VACCINE (#1) 2025 HEPATITIS B VACCINE Aged Out No longe r eligible based on patient's age to complete this topic HIB VACCINE Aged Out No longer eligi ble based on patient's age to complete this topic HPV VACCINE Aged Out No longer eligi ble based on patient's age to complete this topic MENINGOCOCCAL (Group B) VACC INE SHARED DECISION-MAKING Aged Out No longer eligibl e based on patient's age to complete this topic MENINGOCOCCAL GROUPS A/C/Y/W VACCINE Aged Out No longer eligible b ased on patient's age to complete this topic Medical Devices Implanted Type Area Reverberatory Skimmer Device Identifier Shelf Expiration Date Model / Serial / Lot Jordy Acetabular Shell, 54mm Implanted:Qty: 1 on 05/17/2014 by Musa Hamilton IV, MD at [facility] Left: Hip 04/14/2024 / / [id number] J[employer]y Acetabular Liner Implanted:Qty: 1 on 05/17/2014 by Musa Hamilton IV, MD at [facility] Left: Hip 02/12/2019 / / [id number] Jordy Bone Screw, 6.5mm X 25mm Implanted:Qty: 1 on 05/17/2014 by Musa Hamilton IV, MD at [facility] Left: Hip 02/13/2024 / / [id number] Jordy Femoral Stem, Size 3 Implanted:Qty: 1 on 05/17/2014 by Musa Hamilton IV, MD at [facility] Left: Hip 11/12/2018 [id number] / / [id number] Jordy Femoral Head, 36mm Plus 3.5mm Implanted:Qty: 1 on 05/17/2014 by Musa Hamilton IV, MD at [facility] Left: Hip 12/14/2023 [id number] / / [id number] Stem Tib Base Prim Grit Blast 18 X 55mm Implanted:Qty: 1 on 07/04/2015 by Musa Hamilton IV, MD at [facility] Right: Knee [employer] 04/23/2025 [id number] / / [id number] Pat Resurf 29mm Implanted:Qty: 1 on 07/04/2015 by Musa Hamilton IV, MD at [facility] Right: Knee [employer] 06/14/2024 [id number] / / [id number] Scrw Bone 30mm X 6.5mm Implanted:Qty: 3 on 07/04/2015 by Musa Hamilton IV, MD at [facility] Right: Knee [employer] 02/07/2025 [id number] / / [id number] Scrw Bone Sweetie Ii Tib 6.5mm X 25mm Implanted:Qty: 1 on 07/04/2015 by Musa Hamilton IV, MD at [facility] Right: Knee [employer] 10/13/2024 [id number] / / [id number] Jason Bone Cmw Implanted:Qty: 1 on 07/04/2015 by Musa Hamilton IV, MD at [facility] Right: Knee [employer] 09/12/2017 [id number] / / [id number] Legion Por Cr Fem R Sz 5 Implanted:Qty: 1 on 07/04/2015 by Musa Hamilton IV, MD at [facility] Right: Knee [employer] 04/07/2025 [id number] / / [id number] Ins Xlpe Dished Artc Sz 3-4 11mm Implanted:Qty: 1 on 07/04/2015 by Musa Hamilton IV, MD at [facility] Right: Knee [employer] 05/15/2023 [id number] / / [id number] Legion Por Avina Tib Base R Sz 3 Implanted:Qty: 1 on 07/04/2015 by Musa Hamilton IV, MD at [facility] Right: Knee [employer] 01/12/2025 [id number] / / [id number] Shell Actb 54mm Hip Lmt Hl Ti Por Implanted:Qty: 1 on 09/10/2016 by Musa Hamilton IV, MD at [facility] Right: Hip [employer] 07/28/2026 [id number] / / [id number] Liner Actb Mxrm +3mm 23 36mm E-Poly Hip Implanted:Qty: 1 on 09/10/2016 by Musa Hamilton IV, MD at [facility] Right: Hip [employer] 06/18/2021 [id number] / / [id number] Taperloc Complete Micro Primary Femoral Proous Coated Stem Reduced Distal [id number] Standard Offset Type 1 Taper Implanted:Qty: 1 on 09/10/2016 by Musa Hamilton IV, MD at [facility] Right: Hip 05/13/2026 [id number] / / [id number] Slv Centering G7 Std Ofst Tpr Hip Ti Ty Implanted:Qty: 1 on 09/10/2016 by Musa Hamilton IV, MD at [facility] Right: Hip [employer] 06/28/2026 [id number] / / [id number] Head Fem 36mm Hip Blx D Biolox Optn G7 Implanted:Qty: 1 on 09/10/2016 by Musa Hamilton IV, MD at [facility] Right: Hip [employer] 05/15/2026 [facility]-1057 / / [id number] Ringloc Replacement Ring Size 23 Implanted:Qty: 1 on 09/10/2016 by Musa Hamilton IV, MD at [facility] Right: Hip 11/13/2017 [id number] / / [id number] Insurance [employer] Advance Directives * Full Code (Latest Code Status on File) Date Activated Date Inactivated Comments 09/10/2016 2:41 PM 09/13/2016 1:28 PM * Full Code Date Activated Date Inactivated Comments 07/04/2015 2:59 PM 07/07/2015 2:03 PM * Full Code Date Activated Date Inactivated Comments 05/17/2014 9:56 AM 05/21/2014 3:02 PM Care Teams Manager Market Intelligence Relationship Specialty Start Date End Date Cindi Soriano MD [address] [place] [address] PCP - General Family Medicine 04/18/14 [place] [address] [facility] [address] [place] [address] Orthopedic Surgery 04/18/14 Varun Hahn MD [facility] [facility] [address] [place], [place] [id number] Cardiovascular Disease 04/26/15 Varun Hahn MD [address] [place] [address] Cardiovascular Disease 07/15/16
--- OUTSIDE RECORDS SUMMARY | 2024-12-29 09:43 | XMS_ITS | Clinical Summary ---
Author Organization [facility] Address [address] [place] [address] Phone Care Team Providers Care Parts Counter Salesperson Name Role Phone Cindi Soriano MD Primary Care Provider [phone] Allergies No known active allergies Medications warfarin (COUMADIN) 4 MG TabletIndication s:Atrial Fibrillation Take 8 mg by mouth Every Friday, Friday, . And friday Indications: Atrial Fibrillation Active warfarin (COUMADIN) 5 MG Tablet Take 5 mg by mouth Every Friday, Friday, Friday. Active triamterene-hydr ochlorothiazide (MAXZIDE) 37.5-25 MG Tablet Take 1 Tablet by mouth daily. Active lisinopril (PRINIVIL, ZESTRIL) 40 MG Tablet Take 40 mg by mouth daily. Active simvastatin (ZOCOR) 20 MG Tablet Take 20 mg by mouth every evening. Active terazosin (HYTRIN) 2 MG Capsule Take 2 mg by mouth nightly. Active amLODIPine (NORVASC) 5 MG Tablet Take 5 mg by mouth daily. Active Potassium Chloride (KLOR-CON 10 PO) Take 10 mg by mouth daily. Active Ozempic, 0.25 or 0.5 MG/DOSE, 2 MG/3ML Solution Pen-injector 0.5 mg by Subcutaneous route once a week. Active Encounters Date Type Department Care Team Description 10/31/2024 11:37 PM CDT - 11/01/2024 1:35 AM CDT Emergency [facility] Emergency Dept. Services [address] [place] [address] Himanshu Bhagat MD Allergic conjunctivitis Discharge Disposition: Discharged to home or Selfcare 10/31/2024 Travel from Last 3 Months Social History Tobacco Use Types Packs/Day Years Used Date Smoking Tobacco: Never Smokeless Tobacco: Never Tobacco Cessation:Counseling Given: Not Answered Alcohol Use Standard Drinks/Week Comments Never 0 (1 standard drink = 0.6 oz pur e alcohol) Comments No Sex and Gender Information Value Date Recorded Sex Assigned at Female 10/31/2024 10:50 PM CDT Legal Sex Female 10:46 PM CDT Gender Identity Female 10/31/2024 10:50 PM CDT Sexual Orientation Not on file Last Filed Vital Signs Vital Sign Reading Time Taken Comments Blood Pressure 164/85 11/01/2024 1:30 AM CDT Pulse 84 11/01/2024 1:30 AM CDT Temperature 36.4 C (97.5 F) 10/31/2024 11:44 PM CDT Respiratory Rate 18 10/31/2024 11:4 4 PM CDT Oxygen Saturation 96% 11/01/2024 1:30 AM CDT Inhaled Oxygen Concentration - - Weight 136.5 kg (300 lb 14.9 oz) 2024 11:44 PM CDT Height 170.2 cm (5' 7) 10/31/2024 11:4 4 PM CDT Body Mass Index 47.13 10/31/2024 11:44 PM CDT Plan of Treatment Not on file Insurance MEDICARE C [employer]ETNA Care Teams Parts Counter Salesperson Relationship Specialty Start Date End Date Cindi Soriano MD [address] [place] [address] PCP - General Family Medicine 11/01/24
--- OUTSIDE RECORDS SUMMARY | 2024-12-29 09:43 | XMS_ITS | Encounter Summary ---
Author Organization [facility] Healthcare Address [address] [place] [address] Care Team Providers Care Business Consultant Name Role Phone Cindi Soriano MD Primary Care Provider [phone] Encounter Details Date Type Department Care Team (Late st Contact Info) Description 09/12/2017 Orders Only [facility] Health Information Management [address] [place] [address] Scanning, Provider Social History Tobacco Use Types Packs/Day Years Used Date Smoking Tobacco: Never Smokeless Tobacco: Never Alcohol Use Standard Drinks/Week Comments No 0 (1 standard drink = 0.6 oz pur e alcohol) Comments Unknown Sex and Gender Information Value Date Recorded Sex Assigned at Not on file Legal Sex Female 2:11 AM INTERNATIONAL RECRUITER Gender Identity Not on file Sexual Orientation Not on file documented as of this encounter Plan of Treatment Not on file documented as of this encounter Procedures Procedure Name Priority Date/Time Associated Diagnosis Comments SCAN - LABS 09/12/2017 documented in this encounter Results * SCAN - LABS (09/12/2017) us Provider Scanning Final Result documented in this encounter Visit Diagnoses Not on filedocumented in this encounter Care Teams Business Consultant Relationship Specialty Start Date End Date Cindi Soriano MD PCP - General 09/13/16 documented as of this encounter
--- OUTSIDE RECORDS SUMMARY | 2024-12-29 09:43 | XMS_ITS | Encounter Summary ---
Author Organization [facility] Health Address [address] [place] [address] Care Team Providers Care District Plant Supervisor Name Role Phone Alfonso GILMORE MD, Musa Unavailable [phone] Cindi Soriano MD Primary Care Provider [phone] Varun Hahn MD Unavailable [phone] Varun Hahn MD Unavailable [phone] Encounter Details Date Type Department Care Team (Late st Contact Info) Description 08/01/2015 Therapy Visit EXTERNAL NON-[facility] DEPT Unknown, Provider Social History Tobacco Use [...] documented as of this encounter Functional Status * Is person deaf or have serious hearing difficulty? Answer Date of Assessment Author No 07/07/2015 10:31 AM Karo Jiménez RN * Is person blind or have serious difficulty seeing? Answer Date of Assessment Author No 07/07/2015 10:31 AM Karo Jiménez RN * Does person have serious difficulty walking/climbing stairs? Answer Date of Assessment Author No 07/07/2015 10:31 AM Karo Jiménez RN * Does person have difficulty dressing/bathing? Answer Date of Assessment Author No 07/07/2015 10:31 AM Karo Jiménez RN * Does person have difficulty doing errands alone? Answer Date of Assessment Author No 07/07/2015 10:31 AM Karo Jimnéez RN documented as of this encounter Mental Status * Does person have difficulty concentrating/remembering/making decisions? Answer Entry Date Author No 07/07/2015 10:31 AM Karo Jiménez RN documented in this encounter Plan of Treatment Not on file documented as of this encounter Visit Diagnoses Not on filedocumented in this encounter Care Teams District Plant Supervisor Relationship Specialty Start Date End Date Cindi Soriano MD [address] [place] [address] PCP - General Family Medicine 04/18/14 [place] [address] [facility] [address] [place] [id number] Orthopedic Surgery 04/18/14 Varun Hahn MD [address] [place] [address] [place] [address] Cardiovascular Disease 04/26/15 Varun Hahn MD [address] [place] [address] [place] [address] Cardiovascular Disease 07/15/16 documented as of this encounter
--- OUTSIDE RECORDS SUMMARY | 2024-12-29 09:43 | XMS_ITS | Clinical Summary ---
Author Organization [facility] Address [address] [place] [address] Phone Care Team Providers Care Milling General Superintendent Name Role Phone Cindi Soriano MD Primary Care Provider [phone] Allergies No known active allergies Medications sotalol [...] unspecified Take 1 Cap by mouth daily gas tester. Active terazosin (HYTRIN) 1 mg Oral capsuleIndication [...] hx of ovarian ca Primary Care: Cindi Sroiano MD Referring Provider: Cindi Soriano [address] [place] [address] Problem Noted Date Diagnosed Date Atrial fibrillation [...] on file Legal Sex Female 5:53 AM TUBE WORKER Gender Identity Not on file Sexual Orientation [...] 8:45 AM CDT Height 172.7 cm (5' 8) 11/22/2009 11:35 AM CDT Body Mass Index 36.49 11/22/2009 11:35 AM CDT Plan of Treatment Health Maintenance Due Date Last Done Comments DTAP/TDAP/TD VACCINES (1 - Tdap) 1972 COLORECTAL SCREENING 1998 Colorectal Cancer Screening 1998 FIT-DNA Q 3 years 1998 FIT/FOBT Q 1 year 1998 Flex Sig/CT Colonography Q 5 years 1998 PNEUMOCOCCAL VACCINE 50+ YEA RS (1 of 1 - PCV) 2003 ZOSTER VACCINE (1 of 2) 2003 BREAST CANCER SCREENING 06/11/2011 06/11/2010, 11/15 OSTEOPOROSIS SCREENING 2018 INFLUENZA VACCINE (#1) 2025 RSV VACCINE (60+ or ) (1 - 1-dose 75+ series) 2028 Procedures Procedure Name Priority Date/Time Associated Diagnosis Comments MAMMO DIAGNOSTIC UNI RIGHT W OR WO CAD Routine 06/11/2010 12:13 PM TUBE WORKER Abnormal mammogram from Last 3 Months or Most Recently Relevant to Health Maintenance Results * MAMMO DIGITAL DIAG UNI RIGHT (06/11/2010 12:13 PM TUBE WORKER) Anatomical Region Laterality Modality Breast Right Mammography Impressions 06/12/2010 11:42 AM TUBE WORKER : No mammographic evidence of malignancy. RECOMMENDATION: Another 6 month followup study which is also time for bilateral screening mammogram. OVERALL ASSESSMENT: BIRADS category 2 - Benign findings Narrative 06/12/2010 11:42 AM TUBE WORKER RIGHT DIAGNOSTIC DIGITAL MAMMOGRAMS WITH COMPUTER ASSISTED [...] Most Recently Relevant to Health Maintenance Insurance [address] [employer] OPEN ACCESS Care Teams Milling General Superintendent Relationship Specialty Start Date End Date Cindi Soriano MD [address] [place] [id number] PCP - General Family Practice 11/22/09
--- OUTSIDE RECORDS SUMMARY | 2024-12-29 09:43 | XMS_ITS | Clinical Summary ---
Author Organization [facility] Address [facility] [place] [address] Care Team Providers Care Fisher Hand Line Name Role Phone Unavailable Primary Care Provider [...] 10:12 AM CDT Height 167 cm (5' 5.75) 10/02/2009 10:12 AM CDT Body Mass Index 39.68 10/02/2009 10:12 AM CDT Plan of Treatment Health Maintenance Due Date Last Done Comments Colorectal Cancer Screening Colonoscopy (10 Years) 1953 Hepatitis C 1971 DTaP, Tdap and Td Vaccines ( 1 - Tdap) 1972 Mammogram Screening 1993 Pneumococcal Vaccine: 50+ Ye ars (1 of 1 - PCV) 2003 Zoster Vaccines (1 of 2) 2003 Dexa Scan (General) 2018 COVID-19 Vaccine ( - 2023-2 5 season) 2024 RSV Immunization or 60+ Years (1 [...]
--- OUTSIDE RECORDS SUMMARY | 2024-12-29 09:43 | XMS_ITS | Referral Summary ---
Author Organization [facility] [address] [facility] [address] Address [address] [place] [address] Care Team Providers Care Medical Collector Name Role Phone Cindi Soriano MD Primary Care Provider [phone] Encounters Date Type Department Care Team Description 12/13/2024 Telephone [facility] Cardiology [address] [place] [address] Isaias Montoya MD from Last 3 Months Allergies No known active allergies Medications lisinopril (PRINIVIL,ZESTRIL ) 40 mg tablet Take 1 tablet (40 mg total) by mouth 2 (two) times a day Active potassium chloride ER (KLOR-CON) 10 mEq CR tablet Take 1 tablet/caps ule (10 mEq total) by mouth daily Active simvastatin (ZOCOR) 20 mg tablet Take 1 tablet (20 mg total) by mouth nightly Active triamterene-hydro CHLOROthiazide (MAXZIDE,DYAZIDE) 37.5-25 mg per tablet/capsule Take 1 tablet/caps ule by mouth daily Active warfarin (COUMADIN) 4 mg tabletIndications :atrial fibrillation Take 2 tablets (8 mg total) by mouth daily Active metFORMIN (GLUCOPHAGE) 500 mg tablet Take 1 tablet (500 mg total) by mouth 2 (two) times a day 4 Active sotaloL (BETAPACE) 160 mg tablet TAKE 1 TABLET TWICE A DAY 180 tablet 3 5 Active amLODIPine (NORVASC) 5 mg tablet TAKE 1 TABLET NIGHTLY 90 tablet 1 5 Active terazosin (HYTRIN) 2 mg capsuleIndication s:Benign hypertension TAKE 1 CAPSULE NIGHTLY 90 capsule 1 5 Active metoprolol tartrate (LOPRESSOR) 50 mg immediate release tabletIndications :Essential hypertension Take 1 tablet (50 mg total) by mouth 2 (two) times a day 180 tablet 3 5 Active metoprolol tartrate (LOPRESSOR) 50 mg immediate release tabletIndications :Essential hypertension Take 1 tablet (50 mg total) by mouth 2 (two) times a day 180 tablet 3 5 12/14/19 25 Discontinu ed(Reorder ) Active Problems Problem Noted Date Diagnosed Date Left carotid bruit 11/28/2023 High risk medication use 06/03/2023 Palpitations 03/21/2023 Persistent atrial fibrillation 07/29/2021 Assessment & Plan (07/29/2021 1:20 PM CURTAIN STRETCHER ASSEMBLER): Persistent atrial fibrillation, status post catheter ablation. [...] toxicity. Assessment & Plan (07/29/2021 1:20 PM CURTAIN STRETCHER ASSEMBLER): 12-lead ECG today does not demonstrate any [...] toxicity. Assessment & Plan (07/04/2020 2:55 PM CURTAIN STRETCHER ASSEMBLER): 12-lead ECG today does not demonstrate any [...] considered. Assessment & Plan (07/29/2021 1:24 PM CURTAIN STRETCHER ASSEMBLER): She is anticoagulated with warfarin. She has a history of GI bleeding. If this recurs, we will consider Watchman placement. The patient will follow-up with me in 6 months for an office visit and twelve- lead ECG. Assessment & Plan (12/30/2020 2:28 PM CDT): The patient has a CUA4FP6-VSFg score of 3 (annualized risk of stroke 3%). I have therefore recommended that she remain anticoagulated for thromboprophylaxis. The patient will follow-up with me in 6 months for an office visit and twelve- lead ECG. Assessment & Plan (07/04/2020 2:56 PM CURTAIN STRETCHER ASSEMBLER): The patient has a ETZ4RE5-OEPk score of 3 (annualized risk of stroke 3.2 %). I have therefore recommended that she remain anticoagulated for thromboprophylaxis. The patient will follow-up with me in 6 months for an office visit and twelve- lead ECG. Pulmonary hypertension 07/05/2016 Overview (09/20/2016): Pulmonary HTN Paroxysmal atrial fibrillation 05/06/2016 Overview (09/20/2016): Paroxysmal atrial fibrillation Assessment & Plan (03/21/2023 2:42 PM CDT): The patient is 3.5 years post status post ablation for atrial fibrillation, doing well. Maintaining sinus rhythm with sotalol. No changes to management at this time. The patient has a TMC5IE0-VPDa score of 3. I have therefore recommended continued anticoagulation for thromboprophylaxis. The patient will follow-up with me in 12 months for an office visit and twelve- lead ECG. Atrial flutter 05/06/2016 Overview (09/20/2016): Unspecified atrial flutter History [...] Problem Noted Date Diagnosed Date Resolved Date [facility] current use of ant icoagulant therapy 04/08/2022 10/14/2022 Persistent atrial fibrillation 08/13/2018 10/14/2022 Overview (08/13/2018): Added automatically from request for surgery [id number] Assessment & Plan (03/04/2022 11:09 AM CDT): [...] expectantly. Assessment & Plan (07/04/2020 2:55 PM CURTAIN STRETCHER ASSEMBLER): The patient is 11 month status post [...] on file Legal Sex Female 2:11 AM CURTAIN STRETCHER ASSEMBLER Gender Identity Not on file Sexual Orientation Not on file Last Filed Vital Signs Vital Sign Reading Time Taken Comments Blood Pressure 125/75 07/15/2024 8:47 AM CURTAIN STRETCHER ASSEMBLER Pulse 82 07/15/2024 8:26 AM CURTAIN STRETCHER ASSEMBLER Temperature 36.6 C (97.9 F) 08/12/2019 7:35 AM CURTAIN STRETCHER ASSEMBLER Respiratory Rate 20 08/12/2019 7:35 AM CURTAIN STRETCHER ASSEMBLER Oxygen Saturation 98% 07/15/2024 8:26 AM CURTAIN STRETCHER ASSEMBLER Inhaled Oxygen Concentration - - Weight 134.4 kg (296 lb 4.8 oz) 07/15/2024 8:26 AM CURTAIN STRETCHER ASSEMBLER Height 165.1 cm (5' 5) 07/15/2024 8:26 AM CURTAIN STRETCHER ASSEMBLER Body Mass Index 49.31 07/15/2024 8:26 AM CURTAIN STRETCHER ASSEMBLER Plan of Treatment Not on file Medical Devices Implanted Type Area Byproducts Supervisor Device Identifier Shelf Expiration Date Model / Serial / Lot [employer] [id number] Vascade 6/7fr Bioabsorbable Vascular System Compression Collagen - [id number] - [id number] Implanted:Qty: 1 on 08/11/2019 by Braden Eng MD at [facility] Collagen [employer] 04/26/2021 700-580I-0 5U / [id number] / [id number] [employer] [id number] System 6-12fr Mvp Venous Closure Vascade - [id number] - [id number] Implanted:Qty: 1 on 08/11/2019 by Braden Eng MD at [facility] Collagen [employer] 05/28/2023 800-612C-1 0U / [id number] / [id number] [employer] [id number] System 6-12fr Mvp Venous Closure Vascade - [id number] - [id number] Implanted:Qty: 1 on 08/11/2019 by Braden Eng MD at [facility] Collagen [employer] 05/28/2021 800-612C-1 0U / [id number] [id number] / [id number] [employer] [id number] System 6-12fr Mvp Venous Closure Vascade - [id number] - [id number] Implanted:Qty: 1 on 08/11/2019 by Braden Eng MD at [facility] Collagen [employer] 04/08/2021 800-612C-1 0U / [id number] / [id number] Insurance AETNA MEDICARE [facility] MEDICARE Address: [facility] [id number] [place] [address] MEDICARE Publer [facility] UHC MEDICARE ADVANTAGE AET[employer] MEDICARE Advance Directives For more information, please contact: [phone] * Full Code (Latest Code Status on File) Date Activated Date Inactivated Comments 08/11/2019 7:53 PM 08/12/2019 5:06 PM * Full Code Date Activated Date Inactivated Comments 09/06/2018 5:05 AM 09/07/2018 7:09 PM Care Teams Medical Collector Relationship Specialty Start Date End Date Cindi Soriano MD PCP - General 09/13/16
--- OUTSIDE RECORDS SUMMARY | 2024-12-29 09:43 | XMS_ITS | Clinical Summary ---
Author Organization [facility] [address] Address [address] [place] [address] Care Team Providers Care Zoology Technical Officer Name Role Phone Cindi Soriano MD Primary Care Provider Allergies No known active allergies Medications lisinopril [...] 07/29/2021 Assessment & Plan (07/29/2021 1:20 PM ENGINEERING SPECIALIST TECHNICIAN): Persistent atrial fibrillation, status post catheter ablation. [...] toxicity. Assessment & Plan (07/29/2021 1:20 PM ENGINEERING SPECIALIST TECHNICIAN): 12-lead ECG today does not demonstrate any [...] toxicity. Assessment & Plan (07/04/2020 2:55 PM ENGINEERING SPECIALIST TECHNICIAN): 12-lead ECG today does not demonstrate any [...] considered. Assessment & Plan (07/29/2021 1:24 PM ENGINEERING SPECIALIST TECHNICIAN): She is anticoagulated with warfarin. She has a history of GI bleeding. If this recurs, we will consider Watchman placement. The patient will follow-up with me in 6 months for an office visit and twelve- lead ECG. Assessment & Plan (12/30/2020 2:28 PM CDT): The patient has a LRQ3LR8-TQPx score of 3 (annualized risk of stroke 3%). I have therefore recommended that she remain anticoagulated for thromboprophylaxis. The patient will follow-up with me in 6 months for an office visit and twelve- lead ECG. Assessment & Plan (07/04/2020 2:56 PM ENGINEERING SPECIALIST TECHNICIAN): The patient has a ELV6LR4-RCOa score of 3 (annualized risk of stroke [...] at this time. The patient has a JKM7IE0-IIVm score of 3. I have therefore recommended [...] Problem Noted Date Diagnosed Date Resolved Date exterminator termite current use of ant icoagulant therapy 04/08/2022 10/14/2022 Persistent atrial fibrillation 08/13/2018 10/14/2022 Overview (08/13/2018): Added automatically from request for surgery [id number] Assessment & Plan (03/04/2022 11:09 AM CDT): [...] expectantly. Assessment & Plan (07/04/2020 2:55 PM ENGINEERING SPECIALIST TECHNICIAN): The patient is 11 month status post [...] Type Department Care Team Description 12/13/[address] [facility] Cardiology [address] [place] [address] Isaias Montoya MD from Last 3 Months Surgical History Surgery Date Site/Laterality Comments CARDIOVERSION TOTAL SHOULDER ARTHROPLASTY Left TOTAL SHOULDER ARTHROPLASTY Right REVISION TOTAL SHOULDER ARTHROPLASTY Righ t TOTAL KNEE ARTHROPLASTY Right TOTAL HIP ARTHROPLASTY Left TOTAL HIP ARTHROPLASTY Right SECTION x 2 Medical History Medical History Date Comments Hx Other Medical Arrhythmias Atr ial fibrillation and atrial flutter Hypertension Hypertension Adiposity Obesity Atrial fibrillation (HCC) Hyperlipidemia Sleep apnea cpap Limited range of motion (ROM) of shoulder right shoulder Family History Medical History Relation Name Comments Hypertension Brother 2 2 Hypertension; Hypertension Brother 3 Hypertension; Heart attack Father Myocardial Infa rction; Heart attack Mother Hypertension Mother Stent Mother Coronary Stent Placement; Relation Name Status Comments Brother 1 Alive Brother 2 2 Alive Brother 3 Father (Age 48) of [place] Mother (Age 79) Social History Tobacco Use Types Packs/Day Years Used Date Smoking Tobacco: Never Smokeless Tobacco: Never Tobacco Cessation:Counseling Given: Not Answered Alcohol Use Standard Drinks/Week Comments No 0 (1 standard drink = 0.6 oz pur e alcohol) Comments No Sex and Gender Information Value Date Recorded Sex Assigned at Not on file Legal Sex Female 2:11 AM ENGINEERING SPECIALIST TECHNICIAN Gender Identity Not on file Sexual Orientation Not on file Obstetrics History Last Filed Vital Signs Vital Sign Reading Time Taken Comments Blood Pressure 125/75 07/15/2024 8:47 AM ENGINEERING SPECIALIST TECHNICIAN Pulse 82 07/15/2024 8:26 AM ENGINEERING SPECIALIST TECHNICIAN Temperature 36.6 C (97.9 F) 08/12/2019 7:35 AM ENGINEERING SPECIALIST TECHNICIAN Respiratory Rate 20 08/12/2019 7:35 AM ENGINEERING SPECIALIST TECHNICIAN Oxygen Saturation 98% 07/15/2024 8:26 AM ENGINEERING SPECIALIST TECHNICIAN Inhaled Oxygen Concentration - - Weight 134.4 kg (296 lb 4.8 oz) 07/15/2024 8:26 AM ENGINEERING SPECIALIST TECHNICIAN Height 165.1 cm (5' 5) 07/15/2024 8:26 AM ENGINEERING SPECIALIST TECHNICIAN Body Mass Index 49.31 07/15/2024 8:26 AM ENGINEERING SPECIALIST TECHNICIAN Plan of Treatment Health Maintenance Due Date [...] Well Visit 65+ 2018 Influenza Vaccine (#1) 2025 Medical Devices Implanted Type Area Bus Assistant Device Identifier Shelf Expiration Date Model / Serial / Lot [employer] [id number] Vascade 6/7fr Bioabsorbable Vascular System Compression Collagen - [id number] - [id number] Implanted:Qty: 1 on 08/11/2019 by Braden Eng MD at [facility] Collagen [employer] 04/26/2021 700-580I-0 5U / [id number] / [id number] [employer] [id number] System 6-12fr Mvp Venous Closure Vascade - [id number] - [id number] Implanted:Qty: 1 on 08/11/2019 by Braden Eng MD at [facility] Collagen [employer] 05/28/2023 800-612C-1 0U / [id number] 2A / [id number] [employer] [id number] System 6-12fr Mvp Venous Closure Vascade - [id number] - [id number] Implanted:Qty: 1 on 08/11/2019 by Braden Eng MD at [facility] Collagen [employer] 05/28/2021 800-612C-1 0U / [id number] [id number] / [id number] [id number] [employer] [id number] System 6-12fr Mvp Venous Closure Vascade - [id number] - [id number] Implanted:Qty: 1 on 08/11/2019 by Braden Eng MD at [facility] Collagen [employer] 04/08/2021 800-612C-1 0U / [id number] / [id number] Insurance MEDICARE [facility] UHC MEDICARE ADVANTAGE [facility] MEDICARE Advance Directives For more information, please contact: [phone] * Full Code (Latest Code Status on File) Date Activated Date Inactivated Comments 08/11/2019 7:53 PM 08/12/2019 5:06 PM * Full Code Date Activated Date Inactivated Comments 09/06/2018 5:05 AM 09/07/2018 7:09 PM Care Teams Zoology Technical Officer Relationship Specialty Start Date End Date Cindi Soriano MD PCP - General 09/13/16
--- OUTSIDE RECORDS SUMMARY | 2024-12-29 09:43 | XMS_ITS | Encounter Summary ---
Author Organization [facility] Address [address] [address] Care Team Providers Care Geothermal Heat Pump Machinist Name Role Phone Cindi Soriano MD Primary Care Provider [phone] Cindi Soriano MD Primary Care Provider [phone] Encounter Details Date Type Department Care Team (Late st Contact Info) Description 07/26/2016 Orders Only [facility] ProviderJohnson MD [address] [place] [address] Social History Tobacco Use Types Packs/Day Years Used Date Smoking Tobacco: Never Alcohol Use Standard Drinks/Week Comments No 0 (1 standard drink = 0.6 oz pur e alcohol) Comments Unknown Sex and Gender Information Value Date Recorded Sex Assigned at Not on file Legal Sex Female 2:11 AM ORAL SURGERY ASSISTANT Gender Identity Not on file Sexual Orientation [...] on filedocumented in this encounter Care Teams Geothermal Heat Pump Machinist Relationship Specialty Start Date End Date Cindi Soriano MD PCP - General 09/13/16 Cindi Soriano MD PCP - General 06/23/13 09/12/16 documented as of this encounter
[2024-12-29 11:02] LABS: Influenza A QL RT-PCR Negative (Negative); Influenza B QL RT-PCR Negative (Negative); RSV RNA, RT-PCR Negative (Negative); SARS-CoV-2 RNA PCR Positive (Negative)
== END 2024-12-29 09:40 | disposition home or self-care (01) ==
PROVIDERS: PCP Family Medicine; Visit Provider Family Medicine
DX: R05.9 Cough, unspecified (principal); Z20.822 Contact with and (suspected) exposure to COVID-19
CPT/HCPCS: 71046; 87637

== ENCOUNTER 2025-05-18 16:04 | Outpatient (CLI) | payer MEDICARE, SELFPAY ==
--- OUTSIDE RECORDS SUMMARY | 2025-05-17 10:02 | XMS_ITS | Encounter Summary ---
Author Organization [facility] Address [address] [place] [address] Care Team Providers Care Leather Scrubber Name Role Phone Pernell Gómez MD Primary Care Provider [phone] Reason for Visit * Reason Comments Edema * Physical Therapy (Routine) - Authorized Specialty Diagnoses / Procedures Referred By Malik patel Referred To Contact PHYSICAL THERAPY / [facility] Physical Therapy Diagnoses Lymphedema, not elsewhere classified Lymphedema Procedures EVAL Non-Staff, Provider Cindi Loera, PT [address] [place] [address] Phone: tel: fax: Referral ID Status Reason Start Date Expiration Date Visits Requested Visits Authorized [id number] Authorized Physical Therapy 05/17/2025 20 20 Encounter Details Date Type Department Care Team (Late st Contact Info) Description 05/17/2025 10:02 AM [facility] Hospital Encounter [facility] [address] [place] [address] Nilay Dickey NP [address] [place] [address] Cindi Loera, PT [address] [place] [address] Edema Social History Tobacco Use Types Packs/Day Years Used Date Smoking Tobacco: Never Comments Unknown Sex and Gender Information Value Date Recorded Sex Assigned at Female 05/03/2025 10:10 AM GLACIOLOGIST Legal Sex Female 10:36 PM CDT Gender Identity Not on file Sexual Orientation Not on file documented as of this encounter Plan of Treatment Upcoming Encounters Date Type Department Care Team (Late st Contact Info) Description 05/19/2025 2:00 PM GLACIOLOGIST Appointment [facility] [address] [place] [address] Cindi Loera, PT [address] [place] [address] 05/24/2025 1:00 PM GLACIOLOGIST Appointment [facility] [address] [place] [address] Cindi Loera, PT [address] [place] [address] 05/27/2025 1:30 PM GLACIOLOGIST Appointment [facility] [address] [place] [address] Cindi Loera, PT [address] [place] [address] documented as of this encounter Visit Diagnoses Diagnosis Lymphedema- Primary Other lymphedema documented in this encounter Care Teams Leather Scrubber Relationship Specialty Start Date End Date Pernell Gómez MD [address] [place] [address] PCP - General FAMILY PRACTICE 05/03/25 documented as of this encounter
--- NOTE | ~2025-05-18 | XR_ITS ---
EXAMINATION: XR chest 2V, 05/18/2025 16:15 RN SURGICAL PCU HISTORY: dyspnea on exertion COMPARISON: No comparisons available. Technique: 2 views obtained. Findings: Mild pulmonary venous congestion. No pneumothorax. Mild cardiomegaly. Mediastinal and hilar contours are within normal limits. Bony thorax no acute abnormality. Impression: Mild CHF Reviewed, dictated and finalized at location P. SURGICAL PCU Impression: Mild CHF
--- OUTSIDE RECORDS SUMMARY | 2025-05-18 14:15 | XMS_ITS | Encounter Summary ---
Author Organization [facility] Address [address] [place] [address] Care Team Providers Care Customer Service Representative Teacher Name Role Phone Cindi Soriano MD Primary Care Provider [phone] Reason for Referral * Cardiology (Routine) - Authorized Specialty Diagnoses / Procedures Referred By Contac t Referred To Contact Diagnoses Dyspnea on exertion Procedures Transthoracic Echo (TTE) Complete W Doppler/CF Caprice Willard NP Phone: tel: fax: [facility] [address] [place] [address] Phone: tel: fax: Referral ID Status Reason Start Date Expiration Date V isits Requested Visits Authorized [id number] Authorized 05/18/2025 06/17/2026 1 1 TING SHOP SUPERVISOR Reason for Visit * Reason Comments Shortness of Breath Sleep Apnea Atrial Fibrillation Hypertension Pt called c/o SOB Encounter Details Date Type Department Care Team (Late st Contact Info) Description 05/18/2025 2:15 PM PRINTING SHOP SUPERVISOR Office Visit [facility] Cardiology [address] [place] [address] Caprice Willard NP [address] [place] [address] Dyspnea on exertion (Primary Dx) Social History Tobacco Use Types Packs/Day Years Used Date Smoking Tobacco: Never Smokeless Tobacco: Never Alcohol Use Standard Drinks/Week Comments No 0 (1 standard drink = 0.6 oz pur e alcohol) Comments No Sex and Gender Information Value Date Recorded Sex Assigned at Not on file Legal Sex Female 2:11 AM PRINTING SHOP SUPERVISOR Gender Identity Not on file Sexual Orientation Not on file documented as of this encounter Last Filed Vital Signs Vital Sign Reading Time Taken Comments Blood Pressure 130/80 05/18/2025 2:33 PM PRINTING SHOP SUPERVISOR Pulse 72 05/18/2025 2:33 PM PRINTING SHOP SUPERVISOR Temperature - - Respiratory Rate - - Oxygen Saturation 94% 05/18/2025 2:33 PM PRINTING SHOP SUPERVISOR Inhaled Oxygen Concentration - - Weight 138.1 kg (304 lb 6.4 oz) 05/18/2025 2:33 PM PRINTING SHOP SUPERVISOR Height 165.1 cm (5' 5) 05/18/2025 2:33 PM PRINTING SHOP SUPERVISOR Body Mass Index 50.65 05/18/2025 2:33 PM PRINTING SHOP SUPERVISOR documented in this encounter Functional Status * BP Location Answer Date of Assessment Author Left arm 05/18/2025 2:33 PM PRINTING SHOP SUPERVISOR Charissa Tate MA * BP Location Answer Date of Assessment Author Left arm 05/18/2025 2:33 PM PRINTING SHOP SUPERVISOR Charissa Tate MA documented as of this encounter Ordered Prescriptions Prescription Sig Dispense Quantity Refills Last Filled Start Date End Date furosemide (LASIX) 40 mg tabletIndications: Dyspnea on exertion Take 1 tablet (40 mg total) by mouth daily 3 tablet 05/18/2025 05/18/2025 documented in this encounter Plan of Treatment Scheduled Orders Name Type Priority Associated Diagnoses Order Schedule Transthoracic Echo (TTE) Complete W Doppler/CF Echocardiography Routine Dyspnea on exertion Expected: 05/18/2025, Expires: 08/16/2026 Pro B-type natriuretic peptide Lab Routine Dyspnea on exertion Expected: 05/21/2025, Expires: 05/18/2026 CBC with auto differential Lab Routine Dyspnea on exertion Expected: 05/21/2025, Expires: 05/18/2026 Basic metabolic panel Lab Routine Dyspnea on exertion Expected: 05/21/2025, Expires: 05/18/2026 XR Chest PA Lateral 2 Views Imaging Schedule Routine, Read Routine (OP Routine) Dyspnea on exertion Expected: 05/18/2025, Expires: 05/18/2026 documented as of this encounter Visit Diagnoses Diagnosis Dyspnea on exertion- Primary Other dyspnea and respiratory abnormality documented in this encounter Care Teams Customer Service Representative Teacher Relationship Specialty Start Date End Date Cindi Soriano MD PCP - General 09/13/16 documented as of this encounter
--- OUTSIDE RECORDS SUMMARY | 2025-05-18 17:05 | XMS_ITS | Encounter Summary ---
Author Organization [facility] Address [address] [place] [address] Care Team Providers Care Transcribing Machine Operator Name Role Phone Pernell Gómez MD Primary Care Provider [phone] Encounter Details Date Type Department Care Team (Latest Contact Info) Description 05/17/2025 Travel Social History Tobacco Use Types Packs/Day Years Used Date Smoking Tobacco: Never Comments Unknown Sex and Gender Information Value Date Recorded Sex Assigned at Female 05/03/2025 10:10 AM MARKET CONSULTANT Legal Sex Female 10:36 PM CDT Gender Identity Not on file Sexual Orientation Not on file documented as of this encounter Plan of Treatment Upcoming Encounters Date Type Department Care Team (Late st Contact Info) Description 05/19/2025 2:00 PM MARKET CONSULTANT Appointment [facility] [address] [place] [address] Cindi Loera, PT [address] [place] [address] 05/24/2025 1:00 PM MARKET CONSULTANT Appointment [facility] [address] [place] [address] Cindi Loera, PT [address] [place] [address] 05/27/2025 1:30 PM MARKET CONSULTANT Appointment [facility] [address] [place] [address] Cindi Loera, PT [address] [place] [address] documented as of this encounter Visit Diagnoses Not on filedocumented in this encounter Care Teams Transcribing Machine Operator Relationship Specialty Start Date End Date Pernell Gómez MD [address] [address] PCP - General FAMILY PRACTICE 05/03/25 documented as of this encounter
--- OUTSIDE RECORDS SUMMARY | 2025-05-18 17:05 | XMS_ITS | Clinical Summary ---
Author Organization [facility] Address [address] [place] [address] Care Team Providers Care Loader Operator Supervisor Name Role Phone Pernell Gómez MD Primary Care Provider [phone] Active Problems Problem Noted Date Diagnosed Date Lymphedema 05/17/2025 Encounters Date Type Department Care Team Description 05/17/2025 10:02 AM DRYWALL INSTALLER Hospital Encounter [facility] [address] [place] [address] Nilay Dickey, Cindi Jones, PT Edema 05/17/2025 Travel 04/29/2025 Telephone [facility] [address] [place], [place] [id number] Nilay Dickey, RN Appointment Request from Last 3 Months Social History Tobacco Use Types Packs/Day Years Used Date Smoking Tobacco: Never Comments Unknown Sex and Gender Information Value Date Recorded Sex Assigned at Female 05/03/2025 10:10 AM DRYWALL INSTALLER Legal Sex Female 10:36 PM CDT Gender [...] 10/02/2009 10:12 AM CDT Plan of Treatment Upcoming Encounters Date Type Department Care Team (Late st Contact Info) Description 05/19/2025 2:00 PM DRYWALL INSTALLER Appointment [facility] [address] [place] [address] Cindi Loera, PT [address] [place] [address] 05/24/2025 1:00 PM DRYWALL INSTALLER Appointment [facility] [address] [place] [address] Cindi Loera, PT [address] [place] [address] 05/27/2025 1:30 PM DRYWALL INSTALLER Appointment [facility] [address] [place] [address] Cindi Loera, PT [address] [place] [address] Health Maintenance Due Date Last Done Comments Colorectal Cancer Screening Colonoscopy (10 Years) 1953 Hepatitis C 1971 Mammogram Screening 1993 Zoster Vaccines (1 of 2) 2003 Annual Medicare Wellness Visit 2018 Dexa Scan (General) 2018 Pneumococcal Vaccine: 50+ Years (2 of 2 - PCV20 or PCV21) 05/09/2022 05/09/2021 COVID-19 Vaccine (3 - 2024-2 6 season) 2025 06/01/2021, 05/11/2021 Influenza Adult (#1) 2025 RSV Immunization or 60+ Years (1 - 1-dose 75+ series) 2028 DTaP, Tdap and Td Vaccines ( 2 - Td or Tdap) 04/04/2031 04/04/2021 Hepatitis A Vaccines Aged Out No long er eligible based on patient's age to complete this topic Meningococcal B Vaccine Aged Out No l onger eligible based on patient's age to complete this topic Meningococcal Vaccine Aged Out No evaristo yuliet eligible based on patient's age to complete this topic RSV Immunizations Under 20 Months Aged Out No longer eligible b ased on patient's age to complete this topic Insurance AETNA MEDICARE Care Teams Loader Operator Supervisor Relationship Specialty Start Date End Date Pernell Gómez MD [address] [address] PCP - General FAMILY PRACTICE 05/03/25
--- OUTSIDE RECORDS SUMMARY | 2025-05-18 17:05 | XMS_ITS | Clinical Summary ---
Author Organization [facility] Address [address] [place] [address] Phone Care Team Providers Care Party Plan Sales Agent Name Role Phone Cindi Soriano MD Primary Care Provider [phone] Allergies No known active allergies Medications sotalol [...] unspecified Take 1 Cap by mouth daily early learning teacher. Active terazosin (HYTRIN) 1 mg Oral capsuleIndication [...] Soriano MD Referring Provider: Cindi Soriano [address] [place] [address] Problem Noted Date Diagnosed Date Atrial fibrillation [...] on file Legal Sex Female 5:53 AM LEAK DETECTION ENGINEER Gender Identity Not on file Sexual Orientation [...] OR WO CAD Routine 06/11/2010 12:13 PM LEAK DETECTION ENGINEER Abnormal mammogram from Last 3 Months or Most Recently Relevant to Health Maintenance Results * MAMMO DIGITAL DIAG UNI RIGHT (06/11/2010 12:13 PM LEAK DETECTION ENGINEER) Anatomical Region Laterality Modality Breast Right Mammography Impressions 06/12/2010 11:42 AM LEAK DETECTION ENGINEER : No mammographic evidence of malignancy. RECOMMENDATION: Another 6 month followup study which is also time for bilateral screening mammogram. OVERALL ASSESSMENT: BIRADS category 2 - Benign findings Narrative 06/12/2010 11:42 AM LEAK DETECTION ENGINEER RIGHT DIAGNOSTIC DIGITAL MAMMOGRAMS WITH COMPUTER ASSISTED [...] Most Recently Relevant to Health Maintenance Insurance [employer] O OPEN ACCESS Care Teams Party Plan Sales Agent Relationship Specialty Start Date End Date Cindi Soriano MD [address] [place] [address] PCP - General Family Practice 11/22/09
--- OUTSIDE RECORDS SUMMARY | 2025-05-18 17:05 | XMS_ITS | Clinical Summary ---
Author Organization [facility] [address] Address [address] [place] [address] Care Team Providers Care Front Desk Worker Name Role Phone Cindi Soriano MD Primary Care Provider [phone] Allergies No known active allergies Medications lisinopril (PRINIVIL,ZESTRI L) 40 mg tablet Take 1 tablet (40 mg total) by mouth 2 (two) times a day Active potassium chloride ER (KLOR-CON) 10 mEq CR tablet Take 1 tablet/caps ule (10 mEq total) by mouth daily Active simvastatin (ZOCOR) 20 mg tablet Take 1 tablet (20 mg total) by mouth nightly Active triamterene-hydr oCHLOROthiazide (MAXZIDE,DYAZIDE ) 37.5-25 mg per tablet/capsule Take 1 tablet/caps ule by mouth daily Active warfarin (COUMADIN) 4 mg tabletIndication s:atrial fibrillation Take 2 tablets (8 mg total) by mouth daily Active sotaloL (BETAPACE) 160 mg tablet TAKE 1 TABLET TWICE A DAY 180 tablet 3 08/09/19 25 Active amLODIPine (NORVASC) 5 mg tablet TAKE 1 TABLET NIGHTLY 90 tablet 1 10/12/19 25 Active metoprolol tartrate (LOPRESSOR) 50 mg immediate release tabletIndication s:Essential hypertension Take 1 tablet (50 mg total) by mouth 2 (two) times a day 180 tablet 3 12/14/19 25 Active terazosin (HYTRIN) 2 mg capsuleIndicatio ns:Benign hypertension TAKE 1 CAPSULE NIGHTLY 90 capsule 1 05/02/20 25 Active metFORMIN (GLUCOPHAGE) 500 mg tablet Take 1 tablet (500 mg total) by mouth 2 (two) times a day with meals Active furosemide (LASIX) 40 mg tabletIndication s:Dyspnea on exertion Take 1 tablet (40 mg total) by mouth daily 3 tablet 05/18/20 25 025 Active terazosin (HYTRIN) 2 mg capsuleIndicatio ns:Benign hypertension TAKE 1 CAPSULE NIGHTLY 90 capsule 1 10/12/19 25 025 Discontinued furosemide (LASIX) 40 mg tabletIndication s:Dyspnea on exertion Take 1 tablet (40 mg total) by mouth daily 3 tablet 05/18/20 25 025 Discontinued(Re order) Active Problems Problem Noted Date Diagnosed Date Left carotid bruit 11/28/2023 High risk medication use 06/03/2023 Palpitations 03/21/2023 Persistent atrial fibrillation 07/29/2021 Assessment & Plan (07/29/2021 1:20 PM LINEN SUPERVISOR): Persistent atrial fibrillation, status post catheter ablation. [...] toxicity. Assessment & Plan (07/29/2021 1:20 PM LINEN SUPERVISOR): 12-lead ECG today does not demonstrate any [...] toxicity. Assessment & Plan (07/04/2020 2:55 PM LINEN SUPERVISOR): 12-lead ECG today does not demonstrate any [...] considered. Assessment & Plan (07/29/2021 1:24 PM LINEN SUPERVISOR): She is anticoagulated with warfarin. She has a history of GI bleeding. If this recurs, we will consider Watchman placement. The patient will follow-up with me in 6 months for an office visit and twelve- lead ECG. Assessment & Plan (12/30/2020 2:28 PM CDT): The patient has a CKQ2GK1-TKHg score of 3 (annualized risk of stroke 3%). I have therefore recommended that she remain anticoagulated for thromboprophylaxis. The patient will follow-up with me in 6 months for an office visit and twelve- lead ECG. Assessment & Plan (07/04/2020 2:56 PM LINEN SUPERVISOR): The patient has a [id number] score of 3 (annualized risk of stroke [...] at this time. The patient has a BWD7JR3-LYJz score of 3. I have therefore recommended continued anticoagulation for thromboprophylaxis. The patient will follow-up with me in 12 months for an office visit and twelve- lead ECG. Atrial flutter 05/06/2016 Overview (09/20/2016): Unspecified atrial flutter History of gastrointestinal hemorrhage Overview (09/20/2016): H/O: GI bleed Chronic anticoagulation [...] EKG. WILMA on CPAP 12/22/2013 Overview (09/20/2016): WLIMA on CPAP Resolved Problems Problem Noted Date Diagnosed Date Resolved Date last trimmer current use of ant icoagulant therapy 04/08/2022 10/14/2022 Persistent atrial fibrillation 08/13/2018 10/14/2022 Overview (08/13/2018): Added automatically from request for surgery [id number] Assessment & Plan (03/04/2022 11:09 AM CDT): [...] expectantly. Assessment & Plan (07/04/2020 2:55 PM LINEN SUPERVISOR): The patient is 11 month status post [...] Encounters Date Type Department Care Team Description 05/18/2025 2:15 PM LINEN SUPERVISOR Office Visit [facility] Cardiology [address] [place] [address] Caprice Willard NP Dyspnea on exertion (Primary Dx) 05/18/2025 Telephone [facility] Cardiology [address] [facility] [address] [place] [address] Isaias Montoya MD 03/28/2025 10:30 AM CDT [facility] [address] [facility] [address] [place] [address] Philomena Perkins NP Paroxysmal atrial fibrillation (HCC) (Primary Dx) from Last 3 Months Surgical History Surgery [...] Alive Brother 3 Father (Age 48) of [place] Mother (Age 79) Social History Tobacco Use Types Packs/Day Years Used Date Smoking Tobacco: Never Smokeless Tobacco: Never Tobacco Cessation:Counseling Given: Not Answered Alcohol Use Standard Drinks/Week Comments No 0 (1 standard drink = 0.6 oz pur e alcohol) Comments No Sex and Gender Information Value Date Recorded Sex Assigned at Not on file Legal Sex Female 2:11 AM LINEN SUPERVISOR Gender Identity Not on file Sexual Orientation Not on file Last Filed Vital Signs Vital Sign Reading Time Taken Comments Blood Pressure 130/80 05/18/2025 2:33 PM LINEN SUPERVISOR Pulse 72 05/18/2025 2:33 PM LINEN SUPERVISOR Temperature 36.6 C (97.9 F) 08/12/2019 7:35 AM LINEN SUPERVISOR Respiratory Rate 16 03/28/2025 10:4 0 AM CDT Oxygen Saturation 94% 05/18/2025 2:33 PM LINEN SUPERVISOR Inhaled Oxygen Concentration - - Weight 138.1 kg (304 lb 6.4 oz) 05/18/2025 2:33 PM LINEN SUPERVISOR Height 165.1 cm (5' 5) 05/18/2025 2:33 PM LINEN SUPERVISOR Body Mass Index 50.65 05/18/2025 2:33 PM LINEN SUPERVISOR Plan of Treatment Health Maintenance Due Date Last Done Comments Breast Cancer Screening-Mammogram 1953 Colon Cancer Screening-Colonoscopy 1953 Depression Screening 1953 Fall Risk Assessment 1953 Hepatitis C Screening 1953 Osteoporosis Screening-Bone Density Scan 1953 Hepatitis B Screening 1971 Zoster Vaccine (1 of 2) 2003 Well Visit 65+ 2018 Pneumococcal vaccine 65+ (2 of 2 - PCV20 or PCV21) 05/09/2021 Influenza Vaccine (#1) 2025 DTaP/Tdap/Td Vaccine (2 - Td or Tdap) 04/04/2031 Medical Devices Implanted Type Area Java Systems Analyst Device Identifier Shelf Expiration Date Model / Serial / Lot [employer] [id number] Vascade 6/7fr Bioabsorbable Vascular System Compression Collagen - [id number] - [id number] Implanted:Qty: 1 on 08/11/2019 by Braden Eng MD at [facility] Collagen [employer] 04/26/2021 [id number] / [id number] / [id number] [employer] [id number] System 6-12fr Mvp Venous Closure Vascade - [id number] - [id number] Implanted:Qty: 1 on 08/11/2019 by Braden Eng MD at [facility] Collagen [employer] 05/28/2023 [id number] / [id number] / [id number] [employer] [id number] System 6-12fr Mvp Venous Closure Vascade - [id number] - [id number] Implanted:Qty: 1 on 08/11/2019 by Braden Eng MD at [facility] Collagen [employer] 05/28/2021 [id number] / [id number] / [id number] [employer] [id number] System 6-12fr Mvp Venous Closure Vascade - [id number] - [id number] Implanted:Qty: 1 on 08/11/2019 by Bradne Eng MD at [facility] Collagen [employer] 04/08/2021 [id number] / [id number] / [id number] Procedures Procedure Name Priority Date/Time Associated Diagnosis Comments ECG 12-LEAD Routine 03/28/2025 10:41 AM CDT Paroxysmal atrial fibrillation (HCC) from Last 3 Months Results * ECG 12 lead (03/28/2025 10:41 AM CDT) Philomena Perkins NP ECG ORDERABLES Final Resu lt from Last 3 Months Insurance AETNA MEDICARE MEDICARE [employer] [facility] MEDICARE ADVANTAGE AETNA MEDICARE Advance Directives For more information, please contact: [phone] * Full Code (Latest Code Status on File) Date Activated Date Inactivated Comments 08/11/2019 7:53 PM 08/12/2019 5:06 PM * Full Code Date Activated Date Inactivated Comments 09/06/2018 5:05 AM 09/07/2018 7:09 PM Care Teams Front Desk Worker Relationship Specialty Start Date End Date Cindi Soriano MD PCP - General 09/13/16
--- OUTSIDE RECORDS SUMMARY | 2025-05-18 17:05 | XMS_ITS | Encounter Summary ---
Author Organization [facility] Address [address] [address] Care Team Providers Care Vacuum Pan Tender Name Role Phone Cindi Soriano MD Primary Care Provider [phone] Cindi Soriano MD Primary Care Provider [phone] Encounter Details Date Type Department Care Team (Late st Contact Info) Description 07/26/2016 Orders Only [facility] ProviderJohnson MD [address] [place] [address] Social History Tobacco Use Types Packs/Day Years Used Date Smoking Tobacco: Never Alcohol Use Standard Drinks/Week Comments No 0 (1 standard drink = 0.6 oz pur e alcohol) Comments Unknown Sex and Gender Information Value Date Recorded Sex Assigned at Not on file Legal Sex Female 2:11 AM GENERATOR ASSEMBLER Gender Identity Not on file Sexual [...] on filedocumented in this encounter Care Teams Vacuum Pan Tender Relationship Specialty Start Date End Date Cindi Soriano MD PCP - General 09/13/16 Cindi Soriano MD PCP - General 06/23/13 09/12/16 documented as of this encounter
--- OUTSIDE RECORDS SUMMARY | 2025-05-18 17:05 | XMS_ITS | Encounter Summary ---
Author Organization [facility] Address [address] [place] [address] Care Team Providers Care Food Quality Tester Name Role Phone Pernell Gómez MD Primary Care Provider [phone] Encounter Details Date Type Department Care Team (Late st Contact Info) Description 11/21/2018 Abstract [facility] CONVERSION [address] [place] [address] , Generic Conversion, Social History Tobacco Use Types Packs/Day Years Used Date Smoking Tobacco: Never Comments Unknown Sex and Gender Information Value Date Recorded Sex Assigned at Female 05/03/2025 10:10 AM OUTSOLE PARAFFINER Legal Sex Female 10:36 PM CDT Gender Identity Not on file Sexual Orientation Not on file documented as of this encounter Plan of Treatment Upcoming Encounters Date Type Department Care Team (Late Contact Info) Description 05/19/2025 2:00 PM OUTSOLE PARAFFINER Appointment [facility] [address] [place] [address] Cindi Loera, PT [address] [place] [address] 05/24/2025 1:00 PM OUTSOLE PARAFFINER Appointment [facility] [address] [place] [address] Cindi Loera, PT [address] [place] [address] 05/27/2025 1:30 PM OUTSOLE PARAFFINER Appointment [facility] [address] [place], [place] [phone] Cindi Loera, PT [address] [place], [place] [phone] documented as of this encounter Visit Diagnoses Not on filedocumented in this encounter Care Teams Food Quality Tester Relationship Specialty Start Date End Date Pernell Gómez MD [address] [address] PCP - General FAMILY PRACTICE 05/03/25 documented as of this encounter
--- OUTSIDE RECORDS SUMMARY | 2025-05-18 17:05 | XMS_ITS | Encounter Summary ---
Author Organization [facility] Address [address] [place] [address] Care Team Providers Care Elevator Dispatcher Name Role Phone Cindi Soriano MD Primary Care Provider [phone] Encounter Details Date Type Department Care Team (Late st Contact Info) Description 09/12/2017 Orders Only [facility] [place] [place] Health Information Management [address] [place] [address] Scanning, Provider Social History Tobacco Use Types Packs/Day Years Used Date Smoking Tobacco: Never Smokeless Tobacco: Never Alcohol Use Standard Drinks/Week Comments No 0 (1 standard drink = 0.6 oz pur e alcohol) Comments Unknown Sex and Gender Information Value Date Recorded Sex Assigned at Not on file Legal Sex Female 2:11 AM SPRING COILER Gender Identity Not on file Sexual Orientation [...] on filedocumented in this encounter Care Teams Elevator Dispatcher Relationship Specialty Start Date End Date Cindi Soriano MD PCP - General 09/13/16 documented as of this encounter
--- OUTSIDE RECORDS SUMMARY | 2025-05-18 17:05 | XMS_ITS | Encounter Summary ---
Author Organization [facility] Address [address] [place] [address] Care Team Providers Care Catering Director Name Role Phone Cindi Soriano MD Primary Care Provider [phone] Encounter Details Date Type Department Care Team (Late st Contact Info) Description 02/12/2018 Orders Only [facility] [place] Health Information Management [address] [place] [address] Scanning, Provider Social History Tobacco Use Types Packs/Day Years Used Date Smoking Tobacco: Never Smokeless Tobacco: Never Alcohol Use Standard Drinks/Week Comments No 0 (1 standard drink = 0.6 oz pur e alcohol) Comments Unknown Sex and Gender Information Value Date Recorded Sex Assigned at Not on file Legal Sex Female 2:11 AM TURNER AND FORMER AUTOMATIC Gender Identity Not on file Sexual Orientation Not on file documented as of this encounter Functional Status * BP Location Answer Date of Assessment Author Right arm 02/13/2018 1:46 PM Derick Crump MA * BP Location Answer Date of Assessment Author Right arm 02/13/2018 1:46 PM Derick Crump MA documented as of this encounter Plan of Treatment Not on file documented as of this encounter Procedures Procedure Name Priority Date/Time Associated Diagnosis Comments SCAN - LABS 02/12/2018 documented in this encounter Results * SCAN - LABS (02/12/2018) us Provider Scanning Final Result documented in this encounter Visit Diagnoses Not on filedocumented in this encounter Care Teams Catering Director Relationship Specialty Start Date End Date Cindi Soriano MD PCP - General 09/13/16 documented as of this encounter
--- OUTSIDE RECORDS SUMMARY | 2025-05-18 17:05 | XMS_ITS | Encounter Summary ---
Author Organization [facility] Healthcare Address [address] [place] [address] Care Team Providers Care Parent Educator Name Role Phone Cindi Soriano MD Primary Care Provider [phone] Encounter Details Date Type Department Care Team (Late st Contact Info) Description 05/18/2025 Telephone [facility] Medical Group Cardiology [address] [place] [address] Isaias Montoya MD [address] [address] [place] [address] [facility] [place] [address] [place], [place] [id number] Social History Tobacco Use Types Packs/Day Years Used Date Smoking Tobacco: Never Smokeless Tobacco: Never Alcohol Use Standard Drinks/Week Comments No 0 (1 standard drink = 0.6 oz pur e alcohol) Comments No Sex and Gender Information Value Date Recorded Sex Assigned at Not on file Legal Sex Female 2:11 AM DIRECTOR SALES TRAINING Gender Identity Not on file Sexual Orientation Not on file documented as of this encounter Functional Status * BP Location Answer Date of Assessment Author Left arm 05/18/2025 2:33 PM DIRECTOR SALES TRAINING Charissa Tate MA * BP Location Answer Date of Assessment Author Left arm 05/18/2025 2:33 PM DIRECTOR SALES TRAINING Charissa Tate MA documented as of this encounter Ordered Prescriptions Prescription Sig Dispense Quantity Refills Last Filled Start Date End Date furosemide (LASIX) 40 mg tabletIndications: Dyspnea on exertion Take 1 tablet (40 mg total) by mouth daily 3 tablet 05/18/2025 05/21/2025 documented in this encounter Miscellaneous Notes * Telephone Encounter - Galina Black, RN - 05/18/2025 3:58 PM DIRECTOR SALES TRAINING Resent, looks like it originally went to [facility] Mail order [employer] * Addendum Note - Galina Black RN - 05/18/2025 3:58 PM CSTAddended by: GALINA BLACK on: 05/18/2025 03:58 PM Modules accepted: Orders [employer] * Telephone Encounter - Colette Alejo - 05/18/2025 3:53 PM CST Pt requesting furosemide (LASIX) 40 mg with 3 day supply be sent to [facility] in [place]. Thank you. Contact: [employer] * Telephone Encounter - Galina Black RN - 05/18/2025 11:21 AM DIRECTOR SALES TRAINING Spoke to pt who states she has become increasingly SOB over the last 6 months. SOB is mostly with activity, even just walking around the house. Reports she no longer does stairs or shopping b/c of SOB. She is seeing Lymphedema clinic in [place] for known Lymphedema, but the person at that clinicfelt she may be retaining some fluid in her legs on top of the Lymphedema. She denies chest pain, palpitation or difficulty sleeping. Appt given with CK today at 230 [employer] * Telephone Encounter - Colette Alejo - 05/18/2025 9:53 AM CST Pt states she has been SOB the past few months but has noticed it more recently. Also states she isgoing through a lymphedema clinic and needs guidance on her water pill. Contact: [employer] documented in this encounter Plan of Treatment Not on file documented as of this encounter Visit Diagnoses Diagnosis Dyspnea on exertion Other dyspnea and respiratory abnormality documented in this encounter Discontinued Medications Medication Sig Discontinue Reason Start Date End Da te furosemide (LASIX) 40 mg tabletIndications:Dyspne a on exertion Take 1 tablet (40 mg total) by mouth daily Reorder 05/18/2025 05/18/2025 documented as of this encounter Historical Medications * This list may reflect changes made after this encounter. metFORMIN (GLUCOPHAGE) 500 mg tablet Take 1 tablet (500 mg total) by mouth 2 (two) times a day with meals added in this encounter Care Teams Parent Educator Relationship Specialty Start Date End Date Cindi Soriano MD PCP - General 09/13/16 documented as of this encounter
--- OUTSIDE RECORDS SUMMARY | 2025-05-18 17:05 | XMS_ITS | Clinical Summary ---
Author Organization [facility] Address [address] [place] [address] [place] [address] Phone Care Team Providers Care Senior Solutions Architect Name Role Phone Cindi Soriano MD Primary Care Provider [phone] Allergies No known active allergies Medications warfarin [...] by Subcutaneous route once a week. Active Social History Tobacco Use Types Packs/Day Years [...] file Insurance MEDICARE C [employer] Care Teams Senior Solutions Architect Relationship Specialty Start Date End Date Cindi Soriano MD [address] [place] [address] PCP - General Family Medicine 11/01/24
--- OUTSIDE RECORDS SUMMARY | 2025-05-18 17:05 | XMS_ITS | Encounter Summary ---
Author Organization [facility] Healthcare Address [address] [place] [address] Care Team Providers Care Computer Aided Design Operator Name Role Phone Cindi Soriano MD Primary Care Provider [phone] Encounter Details Date Type Department Care Team (Late st Contact Info) Description 12/30/2017 Orders Only [facility] Health Information Management [address] [place] [id number] Scanning, Provider Social History Tobacco Use Types Packs/Day Years Used Date Smoking Tobacco: Never Smokeless Tobacco: Never Alcohol Use Standard Drinks/Week Comments No 0 (1 standard drink = 0.6 oz pur e alcohol) Comments Unknown Sex and Gender Information Value Date Recorded Sex Assigned at Not on file 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 Gender Identity Not on file Sexual Orientation Not on file documented as of this encounter Functional Status * BP Location Answer Date of Assessment Author Right arm 01/01/2018 11:33 AM Carla Crump MA * BP Location Answer Date of Assessment Author Right arm 01/01/2018 11:33 AM Carla Crump MA documented as of this encounter Plan of Treatment Not on file documented as of this encounter Procedures Procedure Name Priority Date/Time Associated Diagnosis Comments SCAN - LABS 12/30/2017 documented in this encounter Results * SCAN - LABS (12/30/2017) us Provider Scanning Final Result documented in this encounter Visit Diagnoses Not on filedocumented in this encounter Care Teams Computer Aided Design Operator Relationship Specialty Start Date End Date Cindi Soriano MD PCP - General 09/13/16 documented as of this encounter
== END 2025-05-18 16:05 | disposition home or self-care (01) ==
PROVIDERS: PCP Family Medicine Adolescent Medicine; Visit Provider Nurse Practitioner
DX: R06.09 Other forms of dyspnea (principal); I50.9 Heart failure, unspecified
CPT/HCPCS: 71046